=== PATIENT | female | born 1955 | race Caucasian/White ===

== ENCOUNTER 2017-08-28 09:15 | Outpatient (CLI) | payer BC ==
--- NOTE | 2017-09-06 08:02 | MMO ---
BILATERAL DIGITAL SCREENING MAMMOGRAMS: HISTORY: This 62-year-old female presents for digital screening mammography. COMPARISON: 04/24/12. This patient's mammogram is interpreted with the assistance of computer-aided detection. FINDINGS: Dense fibroglandular changes are noted bilaterally which can obscure small masses. There is no direc t or indirect evidence of malignancy. Appearance is stable. IMPRESSION: BI-RADS category 1, negative. Continued routine screening. BIRADS 1: Negative Routine annual screening mammography (for women over age 40) POS: [facility]
== END 2017-08-28 09:16 | disposition home or self-care (01) ==
LOC: MAMMO 09:15
PROVIDERS: ATTEND Family Medicine
DX: Z12.31 Encounter for screening mammogram for malignant neoplasm of breast (principal)
CPT/HCPCS: 77067; G0202

== ENCOUNTER 2019-08-13 08:00 | Outpatient (CLI) | payer OTHER | END 2019-08-13 08:01 | disposition home or self-care (01) | LOC: BICMAMMO 08:00 | PROVIDERS: ATTEND Family Medicine | DX: Z12.31 Encounter for screening mammogram for malignant neoplasm of breast (principal) | CPT/HCPCS: 77063; 77067 ==

== ENCOUNTER 2019-09-21 02:24 | Inpatient (IN) | payer OTHER ==
[2019-09-21] MEDS ORDERED: Ondansetron PF 4 MG/2 ML Vial ONE (02:59)
[2019-09-21 03:01] LABS: #Basophils 0.1 thou/uL (0.0-0.2); #Eosinphils 0.2 thou/uL (0.0-0.7); #Lymphocytes 4.1 thou/uL (1.20-3.40); #Monocytes 1.2 thou/uL (0.11-0.59); %Eosinophils 1.3 % (0.0-10.0); %Lymphocytes 32.5 % (21.0-51.0); %Monocytes 9.6 % (0.0-10.0); %Neutrophils 55.6 % (42.0-75.0); Hemoglobin 14.3 g/dL (12.0-16.0); Mean Corpuscular HGB CONC 34.6 g/dL (32.0-36.0); Mean Corpuscular Volume 95.4 fL (78.0-98.0); Platelet Count 243 thou/uL (130-400); RBC Distribution Width 11.4 % (11.5-14.5); Red Blood Cell (RBC) Count 4.35 mill/uL (4.20-5.40); White Blood Cell (WBC) Count 12.6 thou/uL (4.8-10.8)
[2019-09-21] MEDS ORDERED: cefTRIAXone\\ROCEPHIN 2 GM VIAL ONE (03:22)
[2019-09-21] MEDS ORDERED: Sodium Chloride 0.9% 100 ML ONE (03:22)
[2019-09-21] MEDS ORDERED: Azithromycin 500 MG VIAL ONE (03:22)
[2019-09-21 03:23] LABS: ALT (SGPT) 15 U/L (8-55); AST (SGOT) 17 U/L (5-34); Albumin 3.7 g/dL (3.4-4.8); Alkaline Phosphatase 70 U/L (40-110); Anion Gap 14 mmol/L (10-20); BUN (Urea Nitrogen) 9 mg/dL (9.8-20.1); Bilirubin, Total 0.5 mg/dL (0.2-1.2); Calc. Creatinine Clearance 0 mL/min (70-130); Calcium 8.5 mg/dL (7.8-10.44); Carbon Dioxide 21 mmol/L (23-31); Chloride 104 mmol/L (98-107); Estimated GFR-MDRD 73; Globulin 2.6 g/dL (2.4-3.5); Glucose 137 mg/dL (80-115); Potassium 3.7 mmol/L (3.5-5.1); Protein, Total 6.3 g/dL (6.0-8.3); Sodium 135 mmol/L (136-145)
[2019-09-21] MEDS ORDERED: Senokot S 8.6-50 MG TAB PO PRN (06:29)
[2019-09-21] MEDS ORDERED: HYDROcodone/Acetaminophen 5/325 mg Tablet PO PRN (06:29)
[2019-09-21] MEDS ORDERED: Sodium Chloride 0.9% 1,000 ML IV SCH ×3 (06:30→16:00)
[2019-09-21] MEDS ORDERED: Loperamide HCl 2 MG CAP PO PRN (06:32)
[2019-09-21] MEDS ORDERED: Sodium Chloride 0.65% Nasal 44 ML BOT EA NARE PRN (07:37)
[2019-09-21] MEDS ORDERED: Ondansetron ODT 4 MG TAB PO PRN (07:37)
[2019-09-21] MEDS ORDERED: Cepastat Lozenges 1 LOZ PO PRN (07:37)
[2019-09-21] MEDS ORDERED: Artificial Tears 18 DROP/0.9 ML EA EYE PRN (07:37)
[2019-09-21] MEDS ORDERED: hydrALAZINE 20 MG/ML VIAL SLOW IVP PRN (07:37)
[2019-09-21] MEDS ORDERED: Diabetic Tussin 200 MG/10 ML UDCUP PO PRN (07:37)
[2019-09-21] MEDS ORDERED: Calcium Carbonate 500 MG ChewTAB PO PRN (07:37)
[2019-09-21] MEDS ORDERED: Zolpidem Tartrate 5 MG TAB PO PRN (07:37)
[2019-09-21] MEDS ORDERED: Loratadine 10 MG TAB PO PRN (07:37)
--- NOTE | 2019-09-21 07:41 | RAD ---
EXAM: XR Chest 1 View Portable PROVIDED CLINICAL HISTORY: Chest pain COMPARISON: None FINDINGS: Cardiac and mediastinal silhouette is within normal limits. There is bibasilar airspace disease with consolidation involving the right lower lung zone. There is no pleural fluid or pneumothorax apparent. IMPRESSION: Right greater than left basilar airspace disease compatible with pneumonia in the appropriate clinica l context. Follow-up after treatment is recommended to document resolution.
[2019-09-21] MEDS: Enoxaparin Sodium 40 MG/0.4 ML SYRINGE SC SCH (08:48)
[2019-09-21] MEDS: Famotidine 20 MG TAB PO SCH ×2 (08:48→19:35)
[2019-09-21] MEDS: Aspirin Chewable 81 MG TAB PO SCH (08:48)
[2019-09-21] MEDS: Rosuvastatin 10 MG TAB PO SCH (08:48)
[2019-09-21] MEDS: Ondansetron PF 4 MG/2 ML Vial IVP PRN (10:19)
[2019-09-21 10:27] LABS: Actual Bicarbonate (HCO3a) 18.2 mEq/L (22-28); Base Excess (BEa) -8.6 mEq/L (-2.0 to +3.0); CO2 Tension 42.2 mmHg (35.0-45.0); Calcium, Ionized 1.13 mmol/L (1.12-1.30); Carboxyhemoglobin (COHb) 0.9 gm% (0.0-3.0); Hemoglobin (Hb) 14.5 g/dL (12.0-16.0); O2 Tension (PaO2) 67.7 mmHg (> 80.0); Potassium - ABG Lab 3.91 mmol/L (3.70-5.30)
[2019-09-21 10:28] LABS: Puncture Site LRA; pH, Arterial 7.25 (7.35-7.45)
--- NOTE | 2019-09-21 10:29 | PRG ---
DATE OF SERVICE: 09/21/2019 The patient is seen in the morning. At that time, the patient was able to maintain her saturation with nasal cannula and her blood pressure was stable and she was still tachycardic, subsequently the patient was re-evaluated and the patient appeared worse. She was hypoxic even with 5 L of oxygen and the patient was more tachypneic and tachycardic. ABG was obtained, which was consistent with severe acidosis and we kept her on nonbreather and that is why we decided to transfer her to IMCU. The patient will need BiPAP and will put Pulmonary consultation. She may need intubation if no improves.We have also decided to add vancomycin to cover Staph organism. We will closely monitor in IMCU. We will also increase IV fluid to 125 mL/h. will check lactic acid and cortisol level. Job ID: [id number] MTDD
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
[2019-09-21] MEDS ORDERED: Propofol 1,000 MG/100 ML VIAL IV ONE (10:41)
[2019-09-21] MEDS: Sodium Chloride 0.9% 1,000 ML IV SCH ×2 (10:41→16:27)
[2019-09-21] MEDS ORDERED: Midazolam HCl 2 mg/2 ml Vial ONE (10:41)
[2019-09-21] MEDS: Propofol 1,000 MG/100 ML VIAL IV PRN ×2 (11:20→19:21)
[2019-09-21 11:44] LABS: Actual Bicarbonate (HCO3a) 16.6 mEq/L (22-28); CO2 Tension 43.3 mmHg (35.0-45.0); Calcium, Ionized 1.09 mmol/L (1.12-1.30); Carboxyhemoglobin (COHb) 0.4 gm% (0.0-3.0); Hemoglobin (Hb) 13.5 g/dL (12.0-16.0); O2 Tension (PaO2) 68.2 mmHg (> 80.0); Potassium - ABG Lab 3.92 mmol/L (3.70-5.30)
[2019-09-21 11:49] LABS: Puncture Site RRAD
[2019-09-21 11:50] LABS: ALV-art Gradient 590.675 (0-20)
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
[2019-09-21] MEDS ORDERED: Propofol BOLUS 1,000 MG/100 ML VIAL IV PRN (12:26)
[2019-09-21] MEDS ORDERED: Fentanyl BOLUS 250 ML IVPB PRN (12:26)
[2019-09-21] MEDS ORDERED: DISCONTINUE PREVIOUS NARCOTIC PAIN MEDICATIONS AND BENZODIAZEPINES FS SCH (12:26)
[2019-09-21] MEDS ORDERED: Morphine 2 MG/ML SYRINGE SLOW IVP PRN (12:26)
[2019-09-21] MEDS ORDERED: Midazolam HCl 2 mg/2 ml Vial SLOW IVP SCH (12:30)
--- NOTE | 2019-09-21 12:37 | CON ---
DATE OF CONSULTATION: HISTORY OF PRESENT ILLNESS: Ms. Morley is a 64-year-old female. She was admitted with a diagnosis of pneumonia early this morning to the floor. The respiratory therapist found me and told me that she was in severe respiratory distress. The hospitalist had planned to transfer her to the intermediate care unit. The respiratory therapist tracked me down and informed me that he felt she might need to be intubated and read me her blood gas. She was transferred to critical care of my direction at that time. PAST MEDICAL HISTORY: Remarkable for lipid disorder, carpal tunnel syndrome, ankle surgery, and appendectomy. SOCIAL HISTORY: She drinks beer every day. She is a nonsmoker. Does not use drugs. ALLERGIES: SHE REPORTS NO DRUG ALLERGIES. FAMILY HISTORY: Negative for lung disease in early age. REVIEW OF SYSTEMS: Otherwise negative. PHYSICAL EXAMINATION: VITAL SIGNS: She is afebrile. Heart rate is 120, respiratory rate was in the 30s, and oximetry was 86% on non-rebreather. GENERAL: She was saying "help me, I'm tired." When we discussed intubation, she quickly nodded yes, she wanted that. HEENT: Her pupils are equal. Sclerae are anicteric. Extraocular movements appeared full. Throat was clear. NECK: Without lymphadenopathy. LUNGS: Remarkable for rhonchi bilaterally. HEART: Regular rhythm. S1 and S2 are normal. ABDOMEN: Soft and nontender. EXTREMITIES: Without edema. IMAGING STUDIES: Chest radiograph was reviewed, it shows a right greater than left base alveolar infiltrate. IMPRESSION: 1. Pneumonia with possible early acute respiratory distress syndrome. 2. Respiratory failure secondary to respiratory muscle fatigue. Recommended intubation. CRITICAL CARE TIME: Independent of procedure was 30 minutes. Job ID: [id number] MTDD
[2019-09-21] MEDS: Vancomycin HCl 1 GM in Premix Bag 1 BAG IVPB SCH ×2 (12:59→22:12)
[2019-09-21] MEDS: methylPREDNISolone Sod Succ 40 MG VIAL IVP SCH ×2 (13:00→21:01)
[2019-09-21] MEDS: fentaNYL Citrate/PF 2,000 MCG in Sodium Chloride 0.9% 60 ML IV SCH (13:07)
[2019-09-21 14:37] LABS: Actual Bicarbonate (HCO3a) 13.8 mEq/L (22-28); Base Excess (BEa) -10.2 mEq/L (-2.0 to +3.0); CO2 Tension 26.2 mmHg (35.0-45.0); Calcium, Ionized 1.09 mmol/L (1.12-1.30); Carboxyhemoglobin (COHb) 0.7 gm% (0.0-3.0); Hemoglobin (Hb) 13.7 g/dL (12.0-16.0); O2 Tension (PaO2) 62.2 mmHg (> 80.0); Potassium - ABG Lab 4.74 mmol/L (3.70-5.30); pH, Arterial 7.34 (7.35-7.45)
[2019-09-21 14:48] LABS: Puncture Site RR
[2019-09-21 18:13] LABS: Legionella Urinary Ag Negative (Negative); Strep pneumo Urine Ag NEGATIVE (NEGATIVE)
[2019-09-21] MEDS: guaiFENesin ER 600 MG TAB PO SCH (19:35)
[2019-09-21] MEDS: Acetaminophen 325 MG TAB PO PRN (22:43)
[2019-09-22] MEDS: cefTRIAXone\\ROCEPHIN 2 GM in Sodium Chloride 0.9% 100 ML IVPB SCH (03:02)
[2019-09-22] MEDS: Sodium Chloride 0.9% 1,000 ML IV SCH (04:57)
[2019-09-22] MEDS: methylPREDNISolone Sod Succ 40 MG VIAL IVP SCH ×3 (05:05→22:32)
[2019-09-22 06:09] LABS: #Lymphocytes 1.4 thou/uL (1.20-3.40); #Monocytes 0.8 thou/uL (0.11-0.59); #Neutrophils 8.5 thou/uL (1.40-6.50); %Eosinophils 0.1 % (0.0-10.0); %Lymphocytes 12.9 % (21.0-51.0); %Monocytes 7.4 % (0.0-10.0); %Neutrophils 79.6 % (42.0-75.0); Hemoglobin 11.8 g/dL (12.0-16.0); Mean Corpuscular HGB CONC 34.7 g/dL (32.0-36.0); Mean Corpuscular Hemoglobin 33.2 pg (27.0-31.0); Mean Corpuscular Volume 95.5 fL (78.0-98.0); Mean Platelet Volume 8.1 fL (7.4-10.4); Platelet Count 172 thou/uL (130-400); RBC Distribution Width 11.5 % (11.5-14.5); Red Blood Cell (RBC) Count 3.56 mill/uL (4.20-5.40); White Blood Cell (WBC) Count 10.6 thou/uL (4.8-10.8)
[2019-09-22 06:45] LABS: ALT (SGPT) 11 U/L (8-55); AST (SGOT) 14 U/L (5-34); Albumin 2.7 g/dL (3.4-4.8); Alkaline Phosphatase 46 U/L (40-110); Anion Gap 14 mmol/L (10-20); BUN (Urea Nitrogen) 14 mg/dL (9.8-20.1); Bilirubin, Total 0.3 mg/dL (0.2-1.2); Calc. Creatinine Clearance 65 mL/min (70-130); Calcium 7.5 mg/dL (7.8-10.44); Carbon Dioxide 14 mmol/L (23-31); Chloride 112 mmol/L (98-107); Estimated GFR-MDRD 57; Globulin 2.4 g/dL (2.4-3.5); Glucose 149 mg/dL (80-115); Potassium 3.7 mmol/L (3.5-5.1); Protein, Total 5.1 g/dL (6.0-8.3); Sodium 136 mmol/L (136-145)
--- NOTE | 2019-09-22 07:35 | RAD ---
EXAM: XR Chest 1 View Portable PROVIDED CLINICAL HISTORY: Respiratory insufficiency COMPARISON: 09/21/2019 FINDINGS: Interval placement of endotracheal tube, tip of which projects approximately 2 cm from the yung. In terval placement of enteric catheter, the tip of which is not visualized but is below the diaphragm. Interval worsening of bilateral airspace disease, right greater than left. No pleural flui d or pneumothorax apparent. IMPRESSION: Worsening bilateral airspace disease. Interval intubation and placement of enteric catheter.
[2019-09-22 08:00] LABS: Actual Bicarbonate (HCO3a) 13.5 mEq/L (22-28); Base Excess (BEa) -7.7 mEq/L (-2.0 to +3.0); Calcium, Ionized 1.09 mmol/L (1.12-1.30); Carboxyhemoglobin (COHb) 0.3 gm% (0.0-3.0); Hemoglobin (Hb) 12.7 g/dL (12.0-16.0); O2 Tension (PaO2) 105.5 mmHg (> 80.0); Potassium - ABG Lab 3.86 mmol/L (3.70-5.30); pH, Arterial 7.48 (7.35-7.45)
[2019-09-22 08:01] LABS: CO2 Tension 18.7 mmHg (35.0-45.0); Puncture Site RR
[2019-09-22 08:02] LABS: ALV-art Gradient 584.125 (0-20)
[2019-09-22] MEDS: Aspirin Chewable 81 MG TAB PO SCH (08:24)
[2019-09-22] MEDS: Famotidine 20 MG TAB PO SCH (08:24)
[2019-09-22] MEDS: guaiFENesin ER 600 MG TAB PO SCH (08:24)
[2019-09-22] MEDS: Enoxaparin Sodium 40 MG/0.4 ML SYRINGE SC SCH (08:24)
[2019-09-22] MEDS: Rosuvastatin 10 MG TAB PO SCH (08:24)
[2019-09-22] MEDS: fentaNYL Citrate/PF 2,000 MCG in Sodium Chloride 0.9% 60 ML IV SCH (09:09)
--- NOTE | 2019-09-22 10:57 | PDOC.HOSPP ---
- Subjective Encounter Date: 09/22/19 Encounter Time: 10:30 Subjective: pt is awake on vent, family bedside, on ventilator, - Objective Vital Signs & Weight: Vital Signs (12 hours) Temp Pulse Resp BP 09/22/19 10:31 80 93/64 09/22/19 07:45 82 93/65 09/22/19 06:00 28 H 09/22/19 04:00 28 H 09/22/19 03:16 87 09/22/19 03:00 98.7 F 09/22/19 02:00 28 H 09/22/19 00:54 87 09/22/19 00:00 28 H 09/21/19 23:00 99.8 F H Weight Weight 153 lb 3.54 oz Most Recent Monitor Data Heart Rate from ECG 80 NIBP 93/64 NIBP BP-Mean 73 Respiration from ECG 20 SpO2 97 I&O: 09/21/19 09/22/19 09/23/19 06:59 06:59 06:59 Intake Total 3255.2 Output Total 1271 Balance 1984.2 Result Diagrams: 09/22/19 05:49 09/22/19 05:49 Radiology Reviewed by me: Yes EKG Reviewed by me: Yes Hospitalist ROS - Review of Systems ROS unobtainable: due to endotracheal tube - Medication Medications: Active Medications Generic Name Dose Route Start Last Admin Trade Name Freq PRN Reason Stop Dose Admin Acetaminophen 650 mg 09/21/19 06:29 09/21/19 22:43 Tylenol PO 650 mg Q4H PRN Administration Headache/Fever/Mild Pain (1-3) Hydrocodone Bitart/Acetaminophen 1 tab 09/21/19 06:29 09/21/19 07:00 [place] 5/325 PO 1 tab Q4H PRN Administration Moderate Pain (4-6) Aspirin 81 mg 09/21/19 09:00 09/22/19 08:24 Aspirin Chewable PO 81 mg DAILY KRISHNA Administration Enoxaparin Sodium 40 mg 09/21/19 09:00 09/22/19 08:24 Lovenox SC 40 mg 0900 KRISHNA Administration Famotidine 20 mg 09/21/19 09:00 09/22/19 08:24 Pepcid PO 20 mg BID KRISHNA Administration Guaifenesin 600 mg 09/21/19 21:00 09/22/19 08:24 Mucinex PO 600 mg Q12HR KRISHNA Administration Ceftriaxone Sodium 2 gm/ 100 mls @ 200 mls/hr 09/22/19 04:00 09/22/19 03:02 Sodium Chloride IVPB 100 mls 0400 KRISHNA Administration Levofloxacin 750 mg/ Device 150 mls @ 100 mls/hr 09/21/19 08:00 09/22/19 08: 24 IVPB 150 mls 0800 KRISHNA Administration Vancomycin HCl 1 gm/ Device 200 mls @ 200 mls/hr 09/21/19 11:00 09/21/19 22: 12 IVPB 200 mls 1100,2300 KRISHNA Administration Fentanyl Citrate 2,000 mcg/ 100 mls @ 0 mls/hr 09/21/19 12:26 09/22/19 09:09 Sodium Chloride IV 10/21/19 12:26 100 mls INF KRISHNA Administration Protocol Per Protocol Sodium Chloride 1,000 mls @ 75 mls/hr 09/21/19 12:30 09/22/19 04:57 Normal Saline 0.9% IV 1,000 mls .[id number] KRISHNA Administration Methylprednisolone Sodium Succinate 40 mg 09/21/19 14:00 09/22/19 05:05 Solu-Medrol IVP 40 mg Q8HR KRISHNA Administration Morphine Sulfate 2 mg 09/21/19 12:26 09/21/19 12:59 Morphine SLOW IVP 10/21/19 12:26 2 mg Q1H PRN Administration BREAKTHROUGH PAIN/Agitation Ondansetron HCl 4 mg 09/21/19 06:29 09/21/19 10:19 Zofran IVP 4 mg Q6H PRN Administration Nausea/Vomiting Propofol 1,000 mg 09/21/19 12:26 09/21/19 19:21 Diprivan IV 10/21/19 12:26 1,000 mg INF PRN Administration TO ACHIEVE GOAL RASS Protocol Rosuvastatin Calcium 10 mg 09/21/19 09:00 09/22/19 08:24 Crestor PO 10 mg DAILY KRISHNA Administration Sodium Chloride 10 ml 09/21/19 21:00 09/22/19 08:24 Flush - Normal Saline IVF 10 ml Q12HR KRISHNA Administration - Exam General Appearance: NAD Eye: PERRL, anicteric sclera ENT: normocephalic atraumatic, no oropharyngeal lesions Neck: supple, symmetric, no JVD Heart: RRR, no murmur, no gallops Respiratory: no wheezes, no ronchi, rales Gastrointestinal: soft, non-distended, normal bowel sounds Extremities: no cyanosis, no clubbing, no edema Skin: normal turgor Musculoskeletal: normal tone Hosp A/P (1) Acute respiratory failure with hypoxemia Code(s): J96.01 - ACUTE RESPIRATORY FAILURE WITH HYPOXIA Status: Acute (2) Sepsis with acute hypoxic respiratory failure Code(s): A41.9 - SEPSIS, UNSPECIFIED ORGANISM; R65.20 - SEVERE SEPSIS WITHOUT SEPTIC SHOCK; J96.01 - ACUTE RESPIRATORY FAILURE WITH HYPOXIA Status: Acute Qualifiers: Sepsis type: sepsis due to unspecified organism Severe sepsis shock status : without septic shock Qualified Code(s): A41.9 - Sepsis, unspecified organism ; R65.20 - Severe sepsis without septic shock; J96.01 - Acute respiratory failure with hypoxia (3) Pneumonia Code(s): J18.9 - PNEUMONIA, UNSPECIFIED ORGANISM Status: Acute Qualifiers: Pneumonia type: due to unspecified organism Laterality: bilateral Lung location: lower lobe of lung Qualified Code(s): J18.9 - Pneumonia, unspecified organism (4) Metabolic acidosis Code(s): E87.2 - ACIDOSIS Status: Acute (5) Adult respiratory distress syndrome Code(s): J80 - ACUTE RESPIRATORY DISTRESS SYNDROME Status: Suspected (6) Dyslipidemia Code(s): E78.5 - HYPERLIPIDEMIA, UNSPECIFIED Status: Chronic - Plan old records reviewed/req, plan discussed w/ family, continue antibiotics 09/22/19- pt is awake on vent but chest xray has no improvement, still has acidosis, will change IVF with bicarbonate, continue ventilatory support, medication reviewed and continue to provide symptomatic treatment, so far culture negative, condition is still critical
[2019-09-22] MEDS ORDERED: Dextrose 5 %-0.45 % NaCl 1,000 ML IV SCH (11:00)
--- NOTE | 2019-09-22 11:56 | PRG ---
DATE OF SERVICE: 09/22/2019 SUBJECTIVE: Sindi Morley awakens easily. She moves all her extremities. She nods that she is comfortable. OBJECTIVE: VITAL SIGNS: Blood pressure 93/64, heart rate 80, respiratory rate per mechanical ventilation which was initially set at 28, we turned it down to a rate of 16. We have taken a bilevel and turned her PEEP down to 10. She is getting a tidal volume of 500 now. LUNGS: Remarkable for coarse equal breath sounds. HEART: Regular rhythm. ABDOMEN: Soft. EXTREMITIES: Warm without edema. NEURO: Grossly nonfocal. LABORATORY DATA: White count 10.6, hemoglobin 11.8, platelets 172,000. Sodium 136, potassium 3.7, chloride 112, bicarb 14, BUN 14, creatinine 0.99. IMPRESSION: 1. Pneumonia, bilateral. 2. Respiratory failure secondary to pneumonia. Statistically, this is most likely pneumococcus. PLAN: We will start some enteral nutrition today. We will continue DVT prophylaxis. We will simplify some of the meds on her med sheet. She will be switched to half-normal saline. Job ID: [id number]
[2019-09-22] MEDS: Vancomycin HCl 1 GM in Premix Bag 1 BAG IVPB SCH ×2 (12:34→22:32)
[2019-09-22] MEDS: Sodium Chloride 0.45% 1,000 ML IV SCH ×2 (12:35→23:46)
[2019-09-22] MEDS: Diabetic Tussin 200 MG/10 ML UDCUP PO SCH ×4 (12:35→23:45)
[2019-09-22] MEDS: Propofol 1,000 MG/100 ML VIAL IV PRN (17:56)
[2019-09-22] MEDS: Famotidine/PF 20 mg/2ml Vial SLOW IVP SCH (20:14)
[2019-09-22 22:23] LABS: Vancomycin, Trough 18.6 ug/mL
[2019-09-23] MEDS: cefTRIAXone\\ROCEPHIN 2 GM in Sodium Chloride 0.9% 100 ML IVPB SCH (03:58)
[2019-09-23] MEDS: Diabetic Tussin 200 MG/10 ML UDCUP PO SCH ×5 (03:58→20:12)
[2019-09-23 04:43] LABS: #Lymphocytes 1.3 thou/uL (1.20-3.40); #Monocytes 1.1 thou/uL (0.11-0.59); #Neutrophils 9.9 thou/uL (1.40-6.50); %Eosinophils 0.2 % (0.0-10.0); %Lymphocytes 10.2 % (21.0-51.0); %Monocytes 8.6 % (0.0-10.0); Hemoglobin 10.7 g/dL (12.0-16.0); Mean Corpuscular HGB CONC 34.2 g/dL (32.0-36.0); Mean Corpuscular Hemoglobin 33.3 pg (27.0-31.0); Mean Corpuscular Volume 97.4 fL (78.0-98.0); Mean Platelet Volume 8.5 fL (7.4-10.4); Platelet Count 184 thou/uL (130-400); RBC Distribution Width 11.7 % (11.5-14.5); Red Blood Cell (RBC) Count 3.22 mill/uL (4.20-5.40); White Blood Cell (WBC) Count 12.2 thou/uL (4.8-10.8)
[2019-09-23] MEDS: fentaNYL Citrate/PF 2,000 MCG in Sodium Chloride 0.9% 60 ML IV SCH (05:17)
[2019-09-23 05:18] LABS: Anion Gap 10 mmol/L (10-20); BUN (Urea Nitrogen) 20 mg/dL (9.8-20.1); Calc. Creatinine Clearance 73 mL/min (70-130); Calcium 7.3 mg/dL (7.8-10.44); Carbon Dioxide 16 mmol/L (23-31); Chloride 105 mmol/L (98-107); Estimated GFR-MDRD 65; Glucose 162 mg/dL (80-115); Potassium 4.3 mmol/L (3.5-5.1); Sodium 127 mmol/L (136-145)
[2019-09-23] MEDS: methylPREDNISolone Sod Succ 40 MG VIAL IVP SCH ×4 (05:41→23:03)
[2019-09-23 07:36] LABS: Actual Bicarbonate (HCO3a) 16.2 mEq/L (22-28); Base Excess (BEa) -8.8 mEq/L (-2.0 to +3.0); CO2 Tension 32.1 mmHg (35.0-45.0); Calcium, Ionized 1.17 mmol/L (1.12-1.30); Carboxyhemoglobin (COHb) 0.1 gm% (0.0-3.0); Hemoglobin (Hb) 12.2 g/dL (12.0-16.0); O2 Tension (PaO2) 63.6 mmHg (> 80.0); pH, Arterial 7.32 (7.35-7.45)
[2019-09-23 07:40] LABS: ALV-art Gradient 466.675 (0-20); Puncture Site RB
[2019-09-23] MEDS ORDERED: Albumin 25% 25 GM/100 ML BOT IVPB SCH (07:54)
[2019-09-23] MEDS ORDERED: Furosemide 40 MG/4 ML VIAL SLOW IVP SCH (08:00)
[2019-09-23] MEDS: Metoclopramide HCl 10 MG/2 ML VIAL IVP PRN ×2 (08:46→22:11)
[2019-09-23] MEDS: Famotidine/PF 20 mg/2ml Vial SLOW IVP SCH ×2 (08:46→20:12)
[2019-09-23] MEDS: Enoxaparin Sodium 40 MG/0.4 ML SYRINGE SC SCH (08:46)
[2019-09-23] MEDS: Rosuvastatin 10 MG TAB PO SCH (08:46)
[2019-09-23] MEDS: Aspirin Chewable 81 MG TAB PO SCH (08:46)
--- NOTE | 2019-09-23 09:17 | RAD ---
CHEST 1 VIEW: Date: 09/23/19 HISTORY: Pneumonia. Dyspnea. COMPARISON: 09/22/19. FINDINGS: Cardiac silhouette is magnified, upper limits of normal, and partially obscured by dense bilateral in filtrates. Upper lobe components of the dense predominantly central bilateral infiltrates have increa sed slightly. Pulmonary vasculature also engorged. Mediastinum is midline. Tip of the endotracheal catheter, approaching the yung, is not significantl y changed in position. Nasogastric tube descends to the abdomen, exiting the inferior aspect of the i mage. No evidence of pneumothorax. IMPRESSION: 1. Worsening of dense bilateral predominantly central infiltrates. Appearance of pulmonary edema, po ssibly with superimposed inflammation. 2. Endotracheal catheter should probably be withdrawn approximately 3 cm for better positioning. POS: [facility]
[2019-09-23] MEDS: Meropenem 2 GM in Sodium Chloride 0.9% 100 ML IVPB SCH ×2 (10:35→16:18)
--- NOTE | 2019-09-23 12:04 | PDOC.HOSPP ---
- Subjective Encounter Date: 09/23/19 Encounter Time: 10:45 Subjective: Patient seen and examined. No overnight events - Objective Vital Signs & Weight: Vital Signs (12 hours) Temp Pulse Resp BP Pulse Ox 09/23/19 10:56 85 16 106/69 09/23/19 10:32 87 90/64 09/23/19 10:00 16 09/23/19 08:00 98.4 F 16 96 09/23/19 07:27 84 95/72 09/23/19 06:00 16 09/23/19 04:00 97.6 F 16 09/23/19 02:00 86 16 Weight Weight 148 lb 5.938 oz Most Recent Monitor Data Heart Rate from ECG 84 NIBP 90/61 NIBP BP-Mean 70 Respiration from ECG 16 SpO2 93 I&O: 09/22/19 09/23/19 09/24/19 06:59 06:59 06:59 Intake Total 3255.2 3519.9 100 Output Total 1271 1100 710 Balance 1984.2 2419.9 -610 Result Diagrams: 09/23/19 04:05 09/23/19 04:09 Radiology Reviewed by me: Yes EKG Reviewed by me: Yes Hospitalist ROS - Review of Systems ROS unobtainable: due to endotracheal tube - Medication Medications: Active Medications Generic Name Dose Route Start Last Admin Trade Name Freq PRN Reason Stop Dose Admin Acetaminophen 650 mg 09/21/19 06:29 09/21/19 22:43 Tylenol PO 650 mg Q4H PRN Administration Headache/Fever/Mild Pain (1-3) Hydrocodone Bitart/Acetaminophen 1 tab 09/21/19 06:29 09/21/19 07:00 [place] 5/325 PO 1 tab Q4H PRN Administration Moderate Pain (4-6) Aspirin 81 mg 09/21/19 09:00 09/23/19 08:46 Aspirin Chewable PO 81 mg DAILY KRISHNA Administration Enoxaparin Sodium 40 mg 09/21/19 09:00 09/23/19 08:46 Lovenox SC 40 mg 0900 KRISHNA Administration Famotidine 20 mg 09/22/19 21:00 09/23/19 08:46 Pepcid SLOW IVP 20 mg BID KRISHNA Administration Guaifenesin 200 mg 09/22/19 13:00 09/23/19 08:48 Robitussin Sf PO 200 mg Q4HR KRISHNA Administration Levofloxacin 750 mg/ Device 150 mls @ 100 mls/hr 09/21/19 08:00 09/23/19 08: 46 IVPB 150 mls 0800 KRISHNA Administration Fentanyl Citrate 2,000 mcg/ 100 mls @ 0 mls/hr 09/21/19 12:26 09/23/19 05:17 Sodium Chloride IV 10/21/19 12:26 100 mls INF KRISHNA Administration Protocol Per Protocol Meropenem 2 gm/ Sodium 100 mls @ 100 mls/hr 09/23/19 09:00 09/23/19 10:35 Chloride IVPB 100 mls 0100,0900,1700 KRISHNA Administration Metoclopramide HCl 10 mg 09/23/19 07:48 09/23/19 08:46 Reglan IVP 10 mg Q6H PRN Administration Nausea/Vomiting Morphine Sulfate 2 mg 09/21/19 12:26 09/21/19 12:59 Morphine SLOW IVP 10/21/19 12:26 2 mg Q1H PRN Administration BREAKTHROUGH PAIN/Agitation Ondansetron HCl 4 mg 09/21/19 06:29 09/21/19 10:19 Zofran IVP 4 mg Q6H PRN Administration Nausea/Vomiting Propofol 1,000 mg 09/21/19 12:26 09/22/19 17:56 Diprivan IV 10/21/19 12:26 1,000 mg INF PRN Administration TO ACHIEVE GOAL RASS Protocol Rosuvastatin Calcium 10 mg 09/21/19 09:00 09/23/19 08:46 Crestor PO 10 mg DAILY KRISHNA Administration Sodium Chloride 10 ml 09/21/19 21:00 09/23/19 08:52 Flush - Normal Saline IVF 10 ml Q12HR KRISHNA Administration - Exam General Appearance: NAD Eye: PERRL, anicteric sclera ENT: normocephalic atraumatic, no oropharyngeal lesions Neck: supple, symmetric, no JVD Heart: RRR, no murmur, no gallops Respiratory: no wheezes Respiratory - other findings: basal rales+ Gastrointestinal: soft, non-distended, normal bowel sounds Extremities: no cyanosis, no clubbing, no edema Skin: normal turgor, no lesions Hosp A/P (1) Acute respiratory failure with hypoxemia Code(s): J96.01 - ACUTE RESPIRATORY FAILURE WITH HYPOXIA Status: Acute (2) Sepsis with acute hypoxic respiratory failure Code(s): A41.9 - SEPSIS, UNSPECIFIED ORGANISM; R65.20 - SEVERE SEPSIS WITHOUT SEPTIC SHOCK; J96.01 - ACUTE RESPIRATORY FAILURE WITH HYPOXIA Status: Acute Qualifiers: Sepsis type: sepsis due to unspecified organism Severe sepsis shock status : without septic shock Qualified Code(s): A41.9 - Sepsis, unspecified organism ; R65.20 - Severe sepsis without septic shock; J96.01 - Acute respiratory failure with hypoxia (3) Pneumonia Code(s): J18.9 - PNEUMONIA, UNSPECIFIED ORGANISM Status: Acute Qualifiers: Pneumonia type: due to unspecified organism Laterality: bilateral Lung location: lower lobe of lung Qualified Code(s): J18.9 - Pneumonia, unspecified organism (4) Metabolic acidosis Code(s): E87.2 - ACIDOSIS Status: Acute (5) Adult respiratory distress syndrome Code(s): J80 - ACUTE RESPIRATORY DISTRESS SYNDROME Status: Suspected (6) Dyslipidemia Code(s): E78.5 - HYPERLIPIDEMIA, UNSPECIFIED Status: Chronic - Plan old records reviewed/req, plan discussed w/ family, continue antibiotics, respiratory therapy 09/22/19- pt is awake on vent but chest xray has no improvement, still has acidosis, will change IVF with bicarbonate, continue ventilatory support, medication reviewed and continue to provide symptomatic treatment, so far culture negative, condition is still critical 09/23/19- continue vent support, continue iv antibiotic, medication reviewed and continue to provide symptomatic treatment, no new recommendation
--- NOTE | 2019-09-23 12:20 | PRG ---
DATE OF SERVICE: 09/23/2019 SUBJECTIVE: Sindi Morley remains sedated for ventilation. She will awake and move all her extremities. OBJECTIVE: VITAL SIGNS: Heart rates in the 80s, blood pressure is 94/61, respiratory rate 16. LUNGS: Remarkable for coarse equal breath sounds. HEART: Regular rhythm. S1 and S2 are normal. ABDOMEN: Soft and nontender. EXTREMITIES: Without clubbing, cyanosis, or edema. LABORATORY DATA: White count 12.2, hemoglobin 10.7, platelets 184. Sodium 127, potassium 4.3, chloride 105, bicarb 16, anion gap 6, BUN 20, creatinine 0.66, glucose 162, albumin 2.7. Chest x-ray reviewed by me now shows diffuse alveolar infiltrates consistent with ARDS. IMPRESSION: 1. Pneumonia with acute respiratory distress syndrome. 2. Respiratory failure. 3. History of heavy alcohol use prior to admission. 4. History of lipid disorder. PLAN: We will continue supportive care. We will try albumin and Lasix to see if we can decrease her total body water and lead to decrease in her x-ray and gas exchange. She is at least stable, but she is far from a point where she can be extubated. ADDENDUM: I have changed her antimicrobial therapy today empirically, given her progression of radiographs. Job ID: [id number]
[2019-09-23] MEDS: Propofol 1,000 MG/100 ML VIAL IV PRN (13:45)
[2019-09-23] MEDS: Norepinephrine 8 MG/250 ML IVPB SCH (16:08)
[2019-09-23] MEDS: Lorazepam 2 MG/ML VIAL SLOW IVP PRN (16:17)
[2019-09-23] MEDS: Vecuronium 10 MG VIAL IV PRN ×2 (16:19→22:10)
[2019-09-24] MEDS: Meropenem 2 GM in Sodium Chloride 0.9% 100 ML IVPB SCH ×3 (01:02→17:18)
[2019-09-24] MEDS: Diabetic Tussin 200 MG/10 ML UDCUP PO SCH ×6 (01:03→20:06)
[2019-09-24] MEDS: fentaNYL Citrate/PF 2,000 MCG in Sodium Chloride 0.9% 60 ML IV SCH ×2 (01:41→21:00)
[2019-09-24] MEDS: Vecuronium 10 MG VIAL IV PRN ×6 (01:42→20:29)
[2019-09-24 02:41] LABS: #Lymphocytes 1.9 thou/uL (1.20-3.40); #Monocytes 2.2 thou/uL (0.11-0.59); #Neutrophils 15.6 thou/uL (1.40-6.50); %Basophils 0.1 % (0.0-1.0); %Eosinophils 0.2 % (0.0-10.0); %Lymphocytes 9.8 % (21.0-51.0); %Monocytes 11.2 % (0.0-10.0); %Neutrophils 78.6 % (42.0-75.0); Hemoglobin 11.7 g/dL (12.0-16.0); Mean Corpuscular HGB CONC 35.3 g/dL (32.0-36.0); Mean Corpuscular Hemoglobin 33.8 pg (27.0-31.0); Mean Corpuscular Volume 95.7 fL (78.0-98.0); Mean Platelet Volume 8.3 fL (7.4-10.4); Platelet Count 248 thou/uL (130-400); RBC Distribution Width 11.9 % (11.5-14.5); Red Blood Cell (RBC) Count 3.46 mill/uL (4.20-5.40); White Blood Cell (WBC) Count 19.8 thou/uL (4.8-10.8)
[2019-09-24 03:00] LABS: Anion Gap 14 mmol/L (10-20); BUN (Urea Nitrogen) 24 mg/dL (9.8-20.1); Calc. Creatinine Clearance 55 mL/min (70-130); Calcium 8.3 mg/dL (7.8-10.44); Carbon Dioxide 18 mmol/L (23-31); Chloride 107 mmol/L (98-107); Estimated GFR-MDRD 49; Glucose 202 mg/dL (80-115); Magnesium 2.3 mg/dL (1.6-2.6); Potassium 3.9 mmol/L (3.5-5.1); Sodium 135 mmol/L (136-145)
[2019-09-24] MEDS: Propofol 1,000 MG/100 ML VIAL IV PRN ×3 (04:29→23:28)
[2019-09-24] MEDS: methylPREDNISolone Sod Succ 40 MG VIAL IVP SCH ×4 (05:03→23:46)
[2019-09-24] MEDS: Famotidine/PF 20 mg/2ml Vial SLOW IVP SCH ×2 (07:19→20:06)
[2019-09-24] MEDS: Enoxaparin Sodium 40 MG/0.4 ML SYRINGE SC SCH (07:19)
[2019-09-24] MEDS: Rosuvastatin 10 MG TAB PO SCH (07:20)
[2019-09-24] MEDS: Aspirin Chewable 81 MG TAB PO SCH (07:20)
[2019-09-24] MEDS: Lorazepam 2 MG/ML VIAL SLOW IVP PRN ×4 (07:20→20:06)
[2019-09-24 08:02] LABS: Actual Bicarbonate (HCO3a) 18.4 mEq/L (22-28); Base Excess (BEa) -3.7 mEq/L (-2.0 to +3.0); Calcium, Ionized 1.14 mmol/L (1.12-1.30); Carboxyhemoglobin (COHb) 0.3 gm% (0.0-3.0); Hemoglobin (Hb) 12.3 g/dL (12.0-16.0); Potassium - ABG Lab 3.92 mmol/L (3.70-5.30); pH, Arterial 7.48 (7.35-7.45)
[2019-09-24 08:05] LABS: CO2 Tension 25.4 mmHg (35.0-45.0); O2 Tension (PaO2) 53.2 mmHg (> 80.0)
[2019-09-24 08:06] LABS: Puncture Site A
[2019-09-24] MEDS: Metoclopramide HCl 10 MG/2 ML VIAL IVP PRN (08:15)
--- NOTE | 2019-09-24 10:34 | RAD ---
PORTABLE CHEST: INDICATION: Pneumonia. COMPARISON: 09/23/2019. FINDINGS: Bilateral confluent infiltrates are again seen in somewhat of a perihilar distribution. The density of these infiltrates has decreased from yesterday suggesting possible improvement, although some of t his is due to exposure differences. ET tube continues to have its tip at the yung and probably amalia uld be slightly retracted. NG tube passes through the EG junction with the tip not visualized. IMPRESSION: Bilateral infiltrates are again seen. Infiltrate density is less, suggesting possible interval impro vement, although some of this is due to exposure differences. POS: [facility]
[2019-09-24] MEDS ORDERED: Furosemide 40 MG/4 ML VIAL SLOW IVP SCH (10:45)
[2019-09-24] MEDS: Furosemide 40 MG/4 ML VIAL SLOW IVP SCH (10:46)
--- NOTE | 2019-09-24 10:55 | PRG ---
DATE OF SERVICE: 09/24/2019 SUBJECTIVE: Ms. Morley is sedated for mechanical ventilation. She is on a low-dose Levophed to facilitate propofol. She did have a wide-complex rhythm disturbance last night, so we will check an echo just to make sure she does not have a subclinical cardiomyopathy. Her two sisters are at the bedside and they report that she drinks all day long everyday. OBJECTIVE: LUNGS: Clear anteriorly. HEART: Regular rhythm. ABDOMEN: Soft. LABORATORY DATA: Chest x-ray still shows diffuse infiltrates, although her x-ray slightly improved. Intake and outputs, negative 420. White count 19.8, hemoglobin 11.7, and platelets 248. Sodium 135, potassium 3.9, chloride 107, bicarb 18, BUN 24, creatinine 1.12, and glucose 202. A pH 7.48, CO2 of 25, pO2 of 53. That is on bilevel at 32/12. IMPRESSION: Pneumonia with acute respiratory distress syndrome with an echocardiogram, rule out a cardiac component to her diffuse infiltrates. The family answered all their questions. This will likely be a slow process and I would not anticipate weaning from mechanical ventilation until early next week. We will add Raglan routinely and increase her feeds to 20 mL per hour. We will put her on Lasix every morning hopefully to facilitate avoidance of a significantly positive fluid balance. Job ID: [id number]
--- NOTE | 2019-09-24 11:41 | PDOC.HOSPP ---
- Subjective Encounter Date: 09/24/19 Encounter Time: 10:45 Subjective: pt is on ventilator, no change in overall condition, - Objective Vital Signs & Weight: Vital Signs (12 hours) Temp Pulse Resp Pulse Ox 09/24/19 10:41 73 09/24/19 10:00 16 09/24/19 08:00 16 87 L 09/24/19 07:52 82 09/24/19 07:00 98.5 F 09/24/19 06:00 16 09/24/19 04:00 16 09/24/19 03:00 98.7 F 09/24/19 02:05 76 09/24/19 02:00 16 09/24/19 00:00 16 Weight Admit Weight 148 lb Weight 150 lb 2.157 oz Most Recent Monitor Data Heart Rate from ECG 73 NIBP 109/75 NIBP BP-Mean 86 Respiration from ECG 16 SpO2 94 I&O: 09/23/19 09/24/19 09/25/19 06:59 06:59 06:59 Intake Total 3519.9 1389.3 20 Output Total 1100 1810 345 Balance 2419.9 -420.7 -325 Result Diagrams: 09/24/19 02:30 09/24/19 02:25 Radiology Reviewed by me: Yes EKG Reviewed by me: Yes Hospitalist ROS - Review of Systems ROS unobtainable: due to endotracheal tube - Medication Medications: Active Medications Generic Name Dose Route Start Last Admin Trade Name Freq PRN Reason Stop Dose Admin Acetaminophen 650 mg 09/21/19 06:29 09/21/19 22:43 Tylenol PO 650 mg Q4H PRN Administration Headache/Fever/Mild Pain (1-3) Hydrocodone Bitart/Acetaminophen 1 tab 09/21/19 06:29 09/21/19 07:00 [place] 5/325 PO 1 tab Q4H PRN Administration Moderate Pain (4-6) Aspirin 81 mg 09/21/19 09:00 09/24/19 07:20 Aspirin Chewable PO 81 mg DAILY KRISHNA Administration Enoxaparin Sodium 40 mg 09/21/19 09:00 09/24/19 07:19 Lovenox SC 40 mg 0900 KRISHNA Administration Famotidine 20 mg 09/22/19 21:00 09/24/19 07:19 Pepcid SLOW IVP 20 mg BID KRISHNA Administration Furosemide 40 mg 09/24/19 10:45 09/24/19 10:49 Lasix SLOW IVP 09/24/19 12:45 40 mg NOW KRISHNA Administration Guaifenesin 200 mg 09/22/19 13:00 09/24/19 07:19 Robitussin Sf PO 200 mg Q4HR KRISHNA Administration Levofloxacin 750 mg/ Device 150 mls @ 100 mls/hr 09/21/19 08:00 09/24/19 07: 18 IVPB 150 mls 0800 KRISHNA Administration Fentanyl Citrate 2,000 mcg/ 100 mls @ 0 mls/hr 09/21/19 12:26 09/24/19 01:41 Sodium Chloride IV 10/21/19 12:26 100 mls INF KRISHNA Administration Protocol Per Protocol Meropenem 2 gm/ Sodium 100 mls @ 100 mls/hr 09/23/19 09:00 09/24/19 09:29 Chloride IVPB 100 mls 0100,0900,1700 KRISHNA Administration Norepinephrine Bitartrate 250 mls @ 0 mls/hr 09/23/19 15:45 09/23/19 16:08 Levophed IVPB 250 mls INF KRISHNA Administration Protocol Titrate Lorazepam 2 mg 09/21/19 12:26 09/24/19 07:20 Ativan SLOW IVP 10/21/19 12:26 2 mg Q1H PRN Administration Breakthrough agitation Methylprednisolone Sodium Succinate 20 mg 09/23/19 12:00 09/24/19 05:03 Solu-Medrol IVP 20 mg Q6HR KRISHNA Administration Morphine Sulfate 2 mg 09/21/19 12:26 09/21/19 12:59 Morphine SLOW IVP 10/21/19 12:26 2 mg Q1H PRN Administration BREAKTHROUGH PAIN/Agitation Ondansetron HCl 4 mg 09/21/19 06:29 09/21/19 10:19 Zofran IVP 4 mg Q6H PRN Administration Nausea/Vomiting Propofol 1,000 mg 09/21/19 12:26 09/24/19 04:29 Diprivan IV 10/21/19 12:26 1,000 mg INF PRN Administration TO ACHIEVE GOAL RASS Protocol Rosuvastatin Calcium 10 mg 09/21/19 09:00 09/24/19 07:20 Crestor PO 10 mg DAILY KRISHNA Administration Sodium Chloride 10 ml 09/21/19 21:00 09/24/19 08:45 Flush - Normal Saline IVF Not Given Q12HR KRISHNA Vecuronium [place] 10 mg 09/23/19 15:42 09/24/19 07:20 Norcuron IV 10 mg PRN PRN Administration MOVEMENT - Exam General Appearance: NAD Eye: PERRL ENT: normocephalic atraumatic Neck: supple, symmetric Heart: RRR, no murmur, no gallops Respiratory: no wheezes, rales Gastrointestinal: soft, non-distended, normal bowel sounds Extremities: no cyanosis, no clubbing Skin: normal turgor Musculoskeletal: normal tone Hosp A/P (1) Acute respiratory failure with hypoxemia Code(s): J96.01 - ACUTE RESPIRATORY FAILURE WITH HYPOXIA Status: Acute (2) Sepsis with acute hypoxic respiratory failure Code(s): A41.9 - SEPSIS, UNSPECIFIED ORGANISM; R65.20 - SEVERE SEPSIS WITHOUT SEPTIC SHOCK; J96.01 - ACUTE RESPIRATORY FAILURE WITH HYPOXIA Status: Acute Qualifiers: Sepsis type: sepsis due to unspecified organism Severe sepsis shock status : without septic shock Qualified Code(s): A41.9 - Sepsis, unspecified organism ; R65.20 - Severe sepsis without septic shock; J96.01 - Acute respiratory failure with hypoxia (3) Pneumonia Code(s): J18.9 - PNEUMONIA, UNSPECIFIED ORGANISM Status: Acute Qualifiers: Pneumonia type: due to unspecified organism Laterality: bilateral Lung location: lower lobe of lung Qualified Code(s): J18.9 - Pneumonia, unspecified organism (4) Metabolic acidosis Code(s): E87.2 - ACIDOSIS Status: Acute (5) Adult respiratory distress syndrome Code(s): J80 - ACUTE RESPIRATORY DISTRESS SYNDROME Status: Acute (6) Dyslipidemia Code(s): E78.5 - HYPERLIPIDEMIA, UNSPECIFIED Status: Chronic - Plan old records reviewed/req, plan discussed w/ family, continue antibiotics, respiratory therapy 09/22/19- pt is awake on vent but chest xray has no improvement, still has acidosis, will change IVF with bicarbonate, continue ventilatory support, medication reviewed and continue to provide symptomatic treatment, so far culture negative, condition is still critical 09/23/19- continue vent support, continue iv antibiotic, medication reviewed and continue to provide symptomatic treatment, no new recommendation 09/24/19- continue ventilatory support, now on bilevel and paralyzed, on sedation, on levaquin, meropenam, continue solumedrol, lasix, tube feeding, updated plan to family bedside.
[2019-09-24] MEDS: Metoclopramide HCl 10 MG/2 ML VIAL IVP SCH ×3 (11:49→23:45)
[2019-09-24] MEDS: Sodium Chloride 0.45% 1,000 ML IV SCH (13:13)
--- NOTE | 2019-09-24 14:07 | EKG ---
Test Reason : Blood Pressure : / mmHG Vent. Rate : 102 BPM Atrial Rate : 102 BPM P-R Int : 146 ms QRS Dur : 078 ms QT Int : 374 ms P-R-T Axes : 059 024 -55 degrees QTc Int : 487 ms Sinus tachycardia Abnormal ECG Confirmed by BIJAL SOLOMON ([id number]), assignment desk editor JL BLANCO ([id number]) on 09/24/2019 2:07:07 PM Referred By: Confirmed By:BIJAL SOLOMON
[2019-09-24] MEDS: Norepinephrine 8 MG/250 ML IVPB SCH (16:30)
[2019-09-24] MEDS: Bacteriostatic Water 30 ML VIAL FS SCH (20:29)
[2019-09-25] MEDS: Diabetic Tussin 200 MG/10 ML UDCUP PO SCH ×4 (00:09→12:26)
[2019-09-25] MEDS: Meropenem 2 GM in Sodium Chloride 0.9% 100 ML IVPB SCH ×3 (00:37→17:32)
[2019-09-25] MEDS: Lorazepam 2 MG/ML VIAL SLOW IVP PRN ×2 (02:47→20:13)
[2019-09-25 05:14] LABS: Anion Gap 15 mmol/L (10-20); BUN (Urea Nitrogen) 25 mg/dL (9.8-20.1); Calc. Creatinine Clearance 65 mL/min (70-130); Calcium 8.2 mg/dL (7.8-10.44); Carbon Dioxide 21 mmol/L (23-31); Chloride 106 mmol/L (98-107); Estimated GFR-MDRD 58; Glucose 223 mg/dL (80-115); Potassium 3.7 mmol/L (3.5-5.1); Sodium 138 mmol/L (136-145)
[2019-09-25 05:25] LABS: #Lymphocytes 1.8 thou/uL (1.20-3.40); #Neutrophils 11.4 thou/uL (1.40-6.50); %Basophils 0.2 % (0.0-1.0); %Eosinophils 0.1 % (0.0-10.0); %Lymphocytes 11.8 % (21.0-51.0); %Neutrophils 74.9 % (42.0-75.0); Hemoglobin 12.1 g/dL (12.0-16.0); Mean Corpuscular HGB CONC 34.3 g/dL (32.0-36.0); Mean Corpuscular Hemoglobin 32.8 pg (27.0-31.0); Mean Corpuscular Volume 95.7 fL (78.0-98.0); Mean Platelet Volume 8.6 fL (7.4-10.4); Platelet Count 281 thou/uL (130-400); RBC Distribution Width 11.9 % (11.5-14.5); Red Blood Cell (RBC) Count 3.69 mill/uL (4.20-5.40); White Blood Cell (WBC) Count 15.2 thou/uL (4.8-10.8)
[2019-09-25] MEDS: Metoclopramide HCl 10 MG/2 ML VIAL IVP SCH ×2 (05:48→12:26)
[2019-09-25] MEDS: methylPREDNISolone Sod Succ 40 MG VIAL IVP SCH ×3 (05:48→20:12)
[2019-09-25] MEDS: Propofol 1,000 MG/100 ML VIAL IV PRN ×3 (05:49→22:25)
[2019-09-25] MEDS: Aspirin Chewable 81 MG TAB PO SCH (07:25)
[2019-09-25] MEDS: Famotidine/PF 20 mg/2ml Vial SLOW IVP SCH (07:27)
[2019-09-25] MEDS: Furosemide 40 MG/4 ML VIAL SLOW IVP SCH (07:27)
[2019-09-25] MEDS: Enoxaparin Sodium 40 MG/0.4 ML SYRINGE SC SCH (07:27)
[2019-09-25] MEDS: Rosuvastatin 10 MG TAB PO SCH (07:28)
[2019-09-25] MEDS: Vecuronium 10 MG VIAL IV PRN ×2 (07:29→14:22)
[2019-09-25] MEDS: Sodium Chloride 0.45% 1,000 ML IV SCH (07:46)
[2019-09-25 08:09] LABS: Actual Bicarbonate (HCO3a) 18.3 mEq/L (22-28); Base Excess (BEa) -3.4 mEq/L (-2.0 to +3.0); Calcium, Ionized 1.14 mmol/L (1.12-1.30); Carboxyhemoglobin (COHb) 0.7 gm% (0.0-3.0); Hemoglobin (Hb) 13.4 g/dL (12.0-16.0); O2 Tension (PaO2) 61.5 mmHg (> 80.0); Potassium - ABG Lab 3.76 mmol/L (3.70-5.30); pH, Arterial 7.49 (7.35-7.45)
[2019-09-25 08:11] LABS: CO2 Tension 24.8 mmHg (35.0-45.0); Puncture Site L.R.
--- NOTE | 2019-09-25 08:39 | PRG ---
DATE OF SERVICE: 09/25/2019 TIME SPENT: 35 minutes of critical care time. SUBJECTIVE: This patient remains heavily sedated and on mechanical ventilation. She is requiring Levophed for blood pressure support. OBJECTIVE: VITAL SIGNS: Temperature is 98.5, pulse 72, blood pressure 121/90. A 24-hour intake 1718, output 2411. Weight 151 pounds. HEENT: Unremarkable. NECK: No adenopathy or JVD. LUNGS: Widespread bilateral crackles. CARDIOVASCULAR: S1 and S2 regular with 3/6 systolic murmur at the left sternal border. ABDOMEN: Soft and nontender to palpation. EXTREMITIES: No clubbing or cyanosis. She has trace edema throughout. DIAGNOSTIC DATA: Microcultures show no growth to date. Sodium 138, potassium 3.7, chloride 106, CO2 of 21, BUN 25, creatinine 0.9, and glucose 223. White blood cell count 15.2, hematocrit 35.3, and platelet count 281. ABG; pH of 7.49, pCO2 of 24, and pO2 of 61, it is on bilevel 32/12 with a rate of 16 and a FiO2 of 50%. ASSESSMENT: 1. Acute respiratory failure requiring mechanical ventilation. 2. Pneumonia with bilateral changes on x-ray, continuing. 3. Acute respiratory distress syndrome. 4. Continued hypotension. PLAN: 1. We will try to wean her pressure settings downwards. 2. Endotracheal tube needs to be pulled back about 1 cm. 3. Continue antibiotics. 4. Continue low-dose diuretics. 5. Anticipate her being intubated for some time. Job ID: [id number]
--- NOTE | 2019-09-25 09:00 | RAD ---
PORTABLE CHEST: Date: 09/25/19 HISTORY: Respiratory distress. COMPARISON: Prior day's exam. FINDINGS: Endotracheal and NG tubes are again noted. The endotracheal tube is just at the level of the yung a nd could be retracted slightly for better placement. Interstitial alveolar lung changes persist. Remy ges are slightly more prominent in the parahilar regions, specifically in the right and left suprahil ar region. IMPRESSION: Slight worsening to the interstitial alveolar parahilar component of the lung changes. POS: OFF
[2019-09-25] MEDS: Bacteriostatic Water 30 ML VIAL FS SCH (12:27)
--- NOTE | 2019-09-25 15:16 | PDOC.HOSPP ---
- Subjective Encounter Date: 09/25/19 Encounter Time: 15:14 Subjective: Unable to obtain history or ROS due to intubated and sedated status - Objective Vital Signs & Weight: Vital Signs (12 hours) Temp Pulse Resp BP Pulse Ox 09/25/19 14:00 16 09/25/19 12:00 97.7 F 16 09/25/19 10:52 74 119/86 09/25/19 10:00 16 09/25/19 09:22 74 122/86 09/25/19 08:00 16 09/25/19 07:53 73 121/92 H 09/25/19 07:48 93 L 09/25/19 07:00 98.5 F 09/25/19 06:00 16 09/25/19 04:00 97.8 F 16 09/25/19 03:42 91 L Weight Admit Weight 148 lb Weight 151 lb 7.321 oz Most Recent Monitor Data Heart Rate from ECG 74 NIBP 125/87 NIBP BP-Mean 99 Respiration from ECG 16 SpO2 100 I&O: 09/24/19 09/25/19 09/26/19 06:59 06:59 06:59 Intake Total 1389.3 1718 260 Output Total 1810 2411 1591 Balance -420.7 -699 -1331 Result Diagrams: 09/25/19 04:30 09/25/19 04:30 Hospitalist ROS - Review of Systems ROS unobtainable: due to endotracheal tube - Medication Medications: Active Medications Generic Name Dose Route Start Last Admin Trade Name Freq PRN Reason Stop Dose Admin Acetaminophen 650 mg 09/21/19 06:29 09/21/19 22:43 Tylenol PO 650 mg Q4H PRN Administration Headache/Fever/Mild Pain (1-3) Artificial Tears 2 drop 09/21/19 07:37 09/25/19 14:22 Tears Naturale EA EYE 2 drop PRN PRN Administration Dry Eyes Aspirin 81 mg 09/21/19 09:00 09/25/19 07:25 Aspirin Chewable PO 81 mg DAILY KRISHNA Administration Enoxaparin Sodium 40 mg 09/21/19 09:00 09/25/19 07:27 Lovenox SC 40 mg 0900 KRISHNA Administration Levofloxacin 750 mg/ Device 150 mls @ 100 mls/hr 09/21/19 08:00 09/25/19 07: 24 IVPB 150 mls 0800 KRISHNA Administration Fentanyl Citrate 2,000 mcg/ 100 mls @ 0 mls/hr 09/21/19 12:26 09/24/19 21:00 Sodium Chloride IV 10/21/19 12:26 100 mls INF KRISHNA Administration Protocol Per Protocol Meropenem 2 gm/ Sodium 100 mls @ 100 mls/hr 09/23/19 09:00 09/25/19 09:13 Chloride IVPB 100 mls 0100,0900,1700 KRISHNA Administration Sodium Chloride 1,000 mls @ 0 mls/hr 09/23/19 07:56 09/25/19 07:46 1/2 Normal Saline IV 1,000 mls .Q0M KRISHNA Administration KVO Norepinephrine Bitartrate 250 mls @ 0 mls/hr 09/23/19 15:45 09/24/19 16:30 Levophed IVPB 250 mls INF KRISHNA Administration Protocol Titrate Lorazepam 2 mg 09/21/19 12:26 09/25/19 02:47 Ativan SLOW IVP 10/21/19 12:26 2 mg Q1H PRN Administration Breakthrough agitation Morphine Sulfate 2 mg 09/21/19 12:26 09/21/19 12:59 Morphine SLOW IVP 10/21/19 12:26 2 mg Q1H PRN Administration BREAKTHROUGH PAIN/Agitation Ondansetron HCl 4 mg 09/21/19 06:29 09/21/19 10:19 Zofran IVP 4 mg Q6H PRN Administration Nausea/Vomiting Propofol 1,000 mg 09/21/19 12:26 09/25/19 13:56 Diprivan IV 10/21/19 12:26 1,000 mg INF PRN Administration TO ACHIEVE GOAL RASS Protocol Rosuvastatin Calcium 10 mg 09/21/19 09:00 09/25/19 07:28 Crestor PO 10 mg DAILY KRISHNA Administration Sodium Chloride 10 ml 09/21/19 21:00 09/25/19 07:29 Flush - Normal Saline IVF 10 ml Q12HR KRISHNA Administration - Exam Neck: supple, symmetric, no thyromegaly Heart: RRR, no gallops, no rubs, normal peripheral pulses Heart - other findings: 3/6 systolic murmur present Respiratory: CTAB, no wheezes, no rales Gastrointestinal: soft, non-tender, non-distended, normal bowel sounds Gastrointestinal - other findings: Chery in place Hosp A/P (1) Adult respiratory distress syndrome Code(s): J80 - ACUTE RESPIRATORY DISTRESS SYNDROME Status: Acute Plan: On PEEP of 12 and FiO2 of 50% On sedation and paralytics High risk due to need for mech. ventilation pulm. on board Mgmt. per pulm. Not ready to wean yet (2) Pneumonia Code(s): J18.9 - PNEUMONIA, UNSPECIFIED ORGANISM Status: Acute Qualifiers: Pneumonia type: due to unspecified organism Laterality: bilateral Lung location: lower lobe of lung Qualified Code(s): J18.9 - Pneumonia, unspecified organism Plan: On IV ABX Pulm. & critical care medicine on board Nebs (3) Shock Code(s): R57.9 - SHOCK, UNSPECIFIED Status: Acute Plan: On levophed Pulm. & critical care on board Likely septic in nature On abx (4) Acute respiratory failure with hypoxemia Code(s): J96.01 - ACUTE RESPIRATORY FAILURE WITH HYPOXIA Status: Acute Plan: Due to ARDS Vent. mgmt. per pulm (5) Dyslipidemia Code(s): E78.5 - HYPERLIPIDEMIA, UNSPECIFIED Status: Chronic Plan: Statin therapy - Plan chery catheter, continue antibiotics, DVT proph w/lovenox
[2019-09-25] MEDS ORDERED: Vecuronium 10 MG VIAL IVP PRN (15:28)
[2019-09-25] MEDS: fentaNYL Citrate/PF 2,000 MCG in Sodium Chloride 0.9% 60 ML IV SCH (17:25)
[2019-09-26] MEDS: Meropenem 2 GM in Sodium Chloride 0.9% 100 ML IVPB SCH ×3 (01:31→17:25)
[2019-09-26 04:20] LABS: Hemoglobin A1c 5.6 % (4.0-6.0)
[2019-09-26 04:38] LABS: ALT (SGPT) 11 U/L (8-55); AST (SGOT) 15 U/L (5-34); Alkaline Phosphatase 60 U/L (40-110); Anion Gap 15 mmol/L (10-20); BUN (Urea Nitrogen) 30 mg/dL (9.8-20.1); Bilirubin, Total 0.3 mg/dL (0.2-1.2); Calc. Creatinine Clearance 66 mL/min (70-130); Calcium 8.3 mg/dL (7.8-10.44); Carbon Dioxide 22 mmol/L (23-31); Chloride 107 mmol/L (98-107); Estimated GFR-MDRD 58; Globulin 2.7 g/dL (2.4-3.5); Glucose 214 mg/dL (80-115); Potassium 3.9 mmol/L (3.5-5.1); Protein, Total 5.7 g/dL (6.0-8.3); Sodium 140 mmol/L (136-145)
[2019-09-26] MEDS: Propofol 1,000 MG/100 ML VIAL IV PRN ×2 (05:16→22:34)
[2019-09-26 05:22] LABS: Band 12 % (5-11); Eosinophils 1 % (0-10); Hemoglobin 12.6 g/dL (12.0-16.0); Lymphocytes 16 % (21-51); MDiff Complete? YES; Mean Corpuscular HGB CONC 34.3 g/dL (32.0-36.0); Mean Corpuscular Hemoglobin 33.2 pg (27.0-31.0); Mean Corpuscular Volume 96.9 fL (78.0-98.0); Mean Platelet Volume 8.5 fL (7.4-10.4); Monocytes 10 % (0-10); Myelocyte 1 % (0-0); Neutrophil 60 % (42-75); Platelet Count 242 thou/uL (130-400); White Blood Cell (WBC) Count 11.7 thou/uL (4.8-10.8)
[2019-09-26 07:03] LABS: Actual Bicarbonate (HCO3a) 21.8 mEq/L (22-28); Base Excess (BEa) 2.3 mEq/L (-2.0 to +3.0); Calcium, Ionized 1.14 mmol/L (1.12-1.30); Carboxyhemoglobin (COHb) 0.9 gm% (0.0-3.0); Hemoglobin (Hb) 14.2 g/dL (12.0-16.0); O2 Tension (PaO2) 138.9 mmHg (> 80.0); Potassium - ABG Lab 3.42 mmol/L (3.70-5.30)
[2019-09-26 07:08] LABS: CO2 Tension 22.4 mmHg (35.0-45.0); pH, Arterial 7.61 (7.35-7.45)
[2019-09-26 07:09] LABS: Puncture Site LR
--- NOTE | 2019-09-26 08:45 | RAD ---
PORTABLE CHEST: DATE: 09/26/2019. PROVIDED CLINICAL HISTORY: Pneumonia. FINDINGS: Comparison 09/25/2019. Persistent but improved bilateral predominantly perihilar airspace disease. No pleural fluid or pneumothorax apparent. Endotracheal tube and enteric catheter are again noted wi th slight interval retraction of the ET tube. IMPRESSION: Persistent but improved bilateral parahilar airspace disease. POS: OFF
[2019-09-26] MEDS: Aspirin Chewable 81 MG TAB PO SCH (08:59)
[2019-09-26] MEDS: Rosuvastatin 10 MG TAB PO SCH (08:59)
[2019-09-26] MEDS: Enoxaparin Sodium 40 MG/0.4 ML SYRINGE SC SCH (09:00)
[2019-09-26] MEDS: Pantoprazole 40 MG VIAL IVP SCH (09:00)
[2019-09-26] MEDS: methylPREDNISolone Sod Succ 40 MG VIAL IVP SCH ×2 (09:00→21:07)
--- NOTE | 2019-09-26 11:06 | PDOC.HOSPP ---
- Subjective Encounter Date: 09/26/19 Encounter Time: 10:55 Subjective: Unable to obtain history or ROS as the patient is intubated and sedated on the vent. - Objective Vital Signs & Weight: Vital Signs (12 hours) Temp Pulse Resp BP Pulse Ox 09/26/19 10:44 82 114/81 09/26/19 08:00 97.6 F 16 96 09/26/19 06:44 66 108/76 09/26/19 06:00 16 09/26/19 04:00 16 09/26/19 03:00 97.8 F 09/26/19 02:00 16 09/26/19 00:00 98.4 F 16 Weight Admit Weight 148 lb Weight 155 lb 6.814 oz Most Recent Monitor Data Heart Rate from ECG 67 NIBP 120/83 NIBP BP-Mean 95 Respiration from ECG 16 SpO2 100 I&O: 09/25/19 09/26/19 09/27/19 06:59 06:59 06:59 Intake Total 1718 2297.9 Output Total 2411 2256 40 Balance -693 41.9 -40 Result Diagrams: 09/26/19 04:00 09/26/19 04:00 Hospitalist ROS - Review of Systems ROS unobtainable: due to mental status - Medication Medications: Active Medications Generic Name Dose Route Start Last Admin Trade Name Freq PRN Reason Stop Dose Admin Acetaminophen 650 mg 09/21/19 06:29 09/21/19 22:43 Tylenol PO 650 mg Q4H PRN Administration Headache/Fever/Mild Pain (1-3) Artificial Tears 2 drop 09/21/19 07:37 09/25/19 14:22 Tears Naturale EA EYE 2 drop PRN PRN Administration Dry Eyes Aspirin 81 mg 09/21/19 09:00 09/26/19 08:59 Aspirin Chewable PO 81 mg DAILY KRISHNA Administration Enoxaparin Sodium 40 mg 09/21/19 09:00 09/26/19 09:00 Lovenox SC 40 mg 0900 KRISHNA Administration Levofloxacin 750 mg/ Device 150 mls @ 100 mls/hr 09/21/19 08:00 09/26/19 08: 58 IVPB 150 mls 0800 KRISHNA Administration Fentanyl Citrate 2,000 mcg/ 100 mls @ 0 mls/hr 09/21/19 12:26 09/25/19 17:25 Sodium Chloride IV 10/21/19 12:26 100 mls INF KRISHNA Administration Protocol Per Protocol Meropenem 2 gm/ Sodium 100 mls @ 100 mls/hr 09/23/19 09:00 09/26/19 11:03 Chloride IVPB 100 mls 0100,0900,1700 KRISHNA Administration Sodium Chloride 1,000 mls @ 0 mls/hr 09/23/19 07:56 09/25/19 07:46 1/2 Normal Saline IV 1,000 mls .Q0M KRISHNA Administration KVO Norepinephrine Bitartrate 250 mls @ 0 mls/hr 09/23/19 15:45 09/24/19 16:30 Levophed IVPB 250 mls INF KRISHNA Administration Protocol Titrate Lorazepam 2 mg 09/21/19 12:26 09/25/19 20:13 Ativan SLOW IVP 10/21/19 12:26 2 mg Q1H PRN Administration Breakthrough agitation Methylprednisolone Sodium Succinate 40 mg 09/25/19 21:00 09/26/19 09:00 Solu-Medrol IVP 40 mg BID KRISHNA Administration Morphine Sulfate 2 mg 09/21/19 12:26 09/21/19 12:59 Morphine SLOW IVP 10/21/19 12:26 2 mg Q1H PRN Administration BREAKTHROUGH PAIN/Agitation Ondansetron HCl 4 mg 09/21/19 06:29 09/21/19 10:19 Zofran IVP 4 mg Q6H PRN Administration Nausea/Vomiting Pantoprazole Sodium 40 mg 09/26/19 09:00 09/26/19 09:00 Protonix IVP 40 mg DAILY KRISHNA Administration Propofol 1,000 mg 09/21/19 12:26 09/26/19 05:16 Diprivan IV 10/21/19 12:26 1,000 mg INF PRN Administration TO ACHIEVE GOAL RASS Protocol Rosuvastatin Calcium 10 mg 09/21/19 09:00 09/26/19 08:59 Crestor PO 10 mg DAILY KRISHNA Administration Sodium Chloride 10 ml 09/21/19 21:00 09/26/19 09:00 Flush - Normal Saline IVF 10 ml Q12HR KRISHNA Administration Vecuronium [place] 10 mg 09/25/19 15:28 09/25/19 20:42 Norcuron IVP 10 mg PRN PRN Administration MOVEMENT - Exam ENT: normocephalic atraumatic, no oropharyngeal lesions Neck: supple, no lymphadenopathy Heart: RRR, no gallops, no rubs, normal peripheral pulses Respiratory: CTAB, no wheezes, normal chest expansion Gastrointestinal: soft, non-tender, non-distended, normal bowel sounds, no palpable masses Extremities: no cyanosis, no clubbing, no edema Hosp A/P (1) Adult respiratory distress syndrome Code(s): J80 - ACUTE RESPIRATORY DISTRESS SYNDROME Status: Acute (2) Pneumonia Code(s): J18.9 - PNEUMONIA, UNSPECIFIED ORGANISM Status: Acute Qualifiers: Pneumonia type: due to unspecified organism Laterality: bilateral Lung location: lower lobe of lung Qualified Code(s): J18.9 - Pneumonia, unspecified organism (3) Shock Code(s): R57.9 - SHOCK, UNSPECIFIED Status: Acute (4) Acute respiratory failure with hypoxemia Code(s): J96.01 - ACUTE RESPIRATORY FAILURE WITH HYPOXIA Status: Acute (5) Dyslipidemia Code(s): E78.5 - HYPERLIPIDEMIA, UNSPECIFIED Status: Chronic - Plan chery catheter, continue antibiotics, DVT proph w/lovenox, GI proph Hosp A/P (1) Adult respiratory distress syndrome Code(s): J80 - ACUTE RESPIRATORY DISTRESS SYNDROME Status: Acute Plan: On PEEP of 12 and FiO2 of 50% On sedation and paralytics High risk due to need for mech. ventilation, IV abx and pressor therapy pulm. on board. Vent. mgmt. per pulm. (2) Pneumonia Code(s): J18.9 - PNEUMONIA, UNSPECIFIED ORGANISM Status: Acute Qualifiers: Pneumonia type: due to unspecified organism Laterality: bilateral Lung location: lower lobe of lung Qualified Code(s): J18.9 - Pneumonia, unspecified organism Plan: On IV ABX. Abx mgmt. per pulm. Pulm. & critical care medicine on board Nebs (3) Shock Code(s): R57.9 - SHOCK, UNSPECIFIED Status: Acute Plan: Pulm. & critical care on board Likely septic in nature On abx (4) Acute respiratory failure with hypoxemia Code(s): J96.01 - ACUTE RESPIRATORY FAILURE WITH HYPOXIA Status: Acute Plan: Due to ARDS Vent. mgmt. per pulm (5) Dyslipidemia Code(s): E78.5 - HYPERLIPIDEMIA, UNSPECIFIED Status: Chronic Plan: Statin therapy
[2019-09-26] MEDS: fentaNYL Citrate/PF 2,000 MCG in Sodium Chloride 0.9% 60 ML IV SCH (16:16)
--- NOTE | 2019-09-26 18:37 | PRG ---
DATE OF SERVICE: 09/26/2019 SUBJECTIVE: Ms. Morley remains mechanically ventilated, although as I have explained to the sister, she is slowly improving. OBJECTIVE: VITAL SIGNS: Blood pressure 101/73, heart rate is in 60s, and respiratory rate is in the teens. LUNGS: Clear anteriorly. HEART: Regular rate and rhythm. ABDOMEN: Soft. EXTREMITIES: Without asymmetry. NEUROLOGIC: Not assessed since she was sedated for ventilation. LABORATORY DATA: White count is 11.7, hemoglobin 12.6, and platelets 242. Sodium 140, potassium 3.9, chloride 107, bicarb 22, BUN 30, and creatinine 0.98. The pH 7.61, CO2 of 22, PO2 of 138, ventilation has been adjusted. Chest x-ray in my opinion shows slight improvement. IMPRESSION: Pneumonia with acute respiratory distress syndrome. PLAN: Continue supportive care with slow weaning from mechanical ventilation. CRITICAL CARE TIME: 30 minutes. Job ID: [id number]
[2019-09-27] MEDS: Meropenem 2 GM in Sodium Chloride 0.9% 100 ML IVPB SCH ×3 (01:27→16:41)
[2019-09-27 04:07] LABS: #Eosinphils 0.1 thou/uL (0.0-0.7); #Lymphocytes 1.7 thou/uL (1.20-3.40); #Monocytes 1.4 thou/uL (0.11-0.59); #Neutrophils 9.2 thou/uL (1.40-6.50); %Eosinophils 0.8 % (0.0-10.0); %Lymphocytes 13.9 % (21.0-51.0); %Monocytes 11.4 % (0.0-10.0); %Neutrophils 73.9 % (42.0-75.0); Hemoglobin 12.5 g/dL (12.0-16.0); Mean Corpuscular Hemoglobin 32.7 pg (27.0-31.0); Mean Corpuscular Volume 96.3 fL (78.0-98.0); Mean Platelet Volume 8.1 fL (7.4-10.4); Platelet Count 275 thou/uL (130-400); RBC Distribution Width 12.1 % (11.5-14.5); White Blood Cell (WBC) Count 12.4 thou/uL (4.8-10.8)
[2019-09-27 04:27] LABS: ALT (SGPT) 9 U/L (8-55); AST (SGOT) 8 U/L (5-34); Alkaline Phosphatase 54 U/L (40-110); Anion Gap 13 mmol/L (10-20); BUN (Urea Nitrogen) 34 mg/dL (9.8-20.1); Bilirubin, Total 0.3 mg/dL (0.2-1.2); Calc. Creatinine Clearance 80 mL/min (70-130); Calcium 8.3 mg/dL (7.8-10.44); Carbon Dioxide 25 mmol/L (23-31); Chloride 106 mmol/L (98-107); Estimated GFR-MDRD 72; Globulin 2.6 g/dL (2.4-3.5); Glucose 206 mg/dL (80-115); Potassium 3.9 mmol/L (3.5-5.1); Protein, Total 5.6 g/dL (6.0-8.3); Sodium 140 mmol/L (136-145)
[2019-09-27] MEDS: Propofol 1,000 MG/100 ML VIAL IV PRN ×3 (06:16→20:43)
[2019-09-27 06:45] LABS: Actual Bicarbonate (HCO3a) 28.1 mEq/L (22-28); Base Excess (BEa) 5.3 mEq/L (-2.0 to +3.0); CO2 Tension 35.2 mmHg (35.0-45.0); Calcium, Ionized 1.17 mmol/L (1.12-1.30); Carboxyhemoglobin (COHb) 0.4 gm% (0.0-3.0); O2 Tension (PaO2) 64.3 mmHg (> 80.0); Potassium - ABG Lab 3.91 mmol/L (3.70-5.30); pH, Arterial 7.52 (7.35-7.45)
[2019-09-27 07:24] LABS: Puncture Site LR
[2019-09-27] MEDS: Enoxaparin Sodium 40 MG/0.4 ML SYRINGE SC SCH (09:03)
[2019-09-27] MEDS: Aspirin Chewable 81 MG TAB PO SCH (09:03)
[2019-09-27] MEDS: Rosuvastatin 10 MG TAB PO SCH (09:03)
[2019-09-27] MEDS: Pantoprazole 40 MG VIAL IVP SCH (09:04)
[2019-09-27] MEDS: methylPREDNISolone Sod Succ 40 MG VIAL IVP SCH ×2 (09:06→20:43)
--- NOTE | 2019-09-27 09:25 | RAD ---
CHEST ONE VIEW: INDICATIONS: Evaluate for pneumonia. COMPARISON: Prior exam dated 09/26/2019. FINDINGS: Left sided perihilar and right infrahilar air space opacities persist. There has been interval develo pment of a small left and a moderate right pleural effusion. There is pulmonary vascular congestion. The patient is intubated with gastric catheter placement. No pneumothorax is evident. IMPRESSION: 1. Bilateral pleural effusions, moderate on the right and small on the left, are new. Findings are [place] spicious for volume overload. 2. Persistent cardiomegaly with pulmonary vascular congestion. 3. Left perihilar and right infrahilar air space opacities may reflect edema or pneumonia. POS: TPC
[2019-09-27] MEDS ORDERED: Furosemide 40 MG/4 ML VIAL SLOW IVP SCH (10:00)
--- NOTE | 2019-09-27 10:38 | PRG ---
DATE OF SERVICE: 09/27/2019 A 35 minutes of critical care time. SUBJECTIVE: The patient is about the same. Remains on mechanical ventilation. Sedated and on a Levophed drip. OBJECTIVE: VITAL SIGNS: Temperature is 97.9, pulse 66, blood pressure 101/68, and O2 saturation 94%. Intake for 24 hours 1670 and output 970. Weight is 153 pounds. She has been in positive fluid balance for everyday except for the and the . HEENT: Unremarkable. NECK: No adenopathy or JVD. LUNGS: Diminished breath sounds at bases. CARDIAC: S1 and S2. Regular. ABDOMEN: Soft. EXTREMITIES: Trace edema. LABORATORY DATA: A pH of 7.52, pCO2 of 35, and pO2 of 64 on SIMV rate 16, tidal volume 450, PEEP 8, pressure support 10, and FiO2 of 50%. White blood cell count 12.4, hematocrit 36.7, and platelet count 275. Sodium 140, potassium 3.9, chloride 106, CO2 of 25, BUN 34, creatinine 0.8, and glucose 206. ASSESSMENT: 1. Pneumonia. 2. Acute respiratory distress syndrome. 3. Hypotension - probably chronically low blood pressure, aggravated by sedation. 4. Pulmonary edema on current x-ray. PLAN: 1. I will give her a dose of diuretics. 2. She is not weanable beyond that at this point. We will continue to follow her daily. Updated sister at bedside. Job ID: [id number]
[2019-09-27] MEDS ORDERED: Norepinephrine 8 MG in Dextrose 5% in Water 242 ML IVPB PRN (12:07)
[2019-09-27] MEDS: Norepinephrine 8 MG/250 ML IVPB SCH (12:44)
[2019-09-27] MEDS: fentaNYL Citrate/PF 2,000 MCG in Sodium Chloride 0.9% 60 ML IV SCH (13:04)
--- NOTE | 2019-09-27 14:45 | PDOC.HOSPP ---
- Subjective Encounter Date: 09/27/19 Encounter Time: 13:30 Subjective: Sister at bedside. Pt. unable to provide history or ROS due to being intubated and sedated. - Objective Vital Signs & Weight: Vital Signs (12 hours) Temp Resp Pulse Ox 09/27/19 14:00 16 09/27/19 12:00 16 09/27/19 11:00 98.2 F 09/27/19 10:00 16 09/27/19 08:00 16 09/27/19 07:52 97 09/27/19 07:00 97.9 F 09/27/19 06:00 16 09/27/19 04:00 98.2 F 16 Weight Admit Weight 148 lb Weight 153 lb 14.122 oz Most Recent Monitor Data Heart Rate from ECG 79 NIBP 98/74 NIBP BP-Mean 82 Respiration from ECG 16 SpO2 98 I&O: 09/26/19 09/27/19 09/28/19 06:59 06:59 06:59 Intake Total 2297.9 1670.5 Output Total 2256 970 1570 Balance 41.9 700.5 -1570 Result Diagrams: 09/27/19 03:30 09/27/19 03:30 Hospitalist ROS - Review of Systems ROS unobtainable: due to endotracheal tube - Medication Medications: Active Medications Generic Name Dose Route Start Last Admin Trade Name Freq PRN Reason Stop Dose Admin Acetaminophen 650 mg 09/21/19 06:29 09/21/19 22:43 Tylenol PO 650 mg Q4H PRN Administration Headache/Fever/Mild Pain (1-3) Artificial Tears 2 drop 09/21/19 07:37 09/25/19 14:22 Tears Naturale EA EYE 2 drop PRN PRN Administration Dry Eyes Aspirin 81 mg 09/21/19 09:00 09/27/19 09:03 Aspirin Chewable PO 81 mg DAILY KRISHNA Administration Enoxaparin Sodium 40 mg 09/21/19 09:00 09/27/19 09:03 Lovenox SC 40 mg 0900 KRISHNA Administration Levofloxacin 750 mg/ Device 150 mls @ 100 mls/hr 09/21/19 08:00 09/27/19 08: 49 IVPB 150 mls 0800 KRISHNA Administration Fentanyl Citrate 2,000 mcg/ 100 mls @ 0 mls/hr 09/21/19 12:26 09/27/19 13:04 Sodium Chloride IV 10/21/19 12:26 100 mls INF KRISHNA Administration Protocol Per Protocol Meropenem 2 gm/ Sodium 100 mls @ 100 mls/hr 09/23/19 09:00 09/27/19 09:04 Chloride IVPB 100 mls 0100,0900,1700 KRISHNA Administration Sodium Chloride 1,000 mls @ 0 mls/hr 09/23/19 07:56 09/25/19 07:46 1/2 Normal Saline IV 1,000 mls .Q0M KRISHNA Administration KVO Lorazepam 2 mg 09/21/19 12:26 09/25/19 20:13 Ativan SLOW IVP 10/21/19 12:26 2 mg Q1H PRN Administration Breakthrough agitation Methylprednisolone Sodium Succinate 40 mg 09/25/19 21:00 09/27/19 09:06 Solu-Medrol IVP 40 mg BID KRISHNA Administration Morphine Sulfate 2 mg 09/21/19 12:26 09/21/19 12:59 Morphine SLOW IVP 10/21/19 12:26 2 mg Q1H PRN Administration BREAKTHROUGH PAIN/Agitation Ondansetron HCl 4 mg 09/21/19 06:29 09/21/19 10:19 Zofran IVP 4 mg Q6H PRN Administration Nausea/Vomiting Pantoprazole Sodium 40 mg 09/26/19 09:00 09/27/19 09:04 Protonix IVP 40 mg DAILY KRISHNA Administration Propofol 1,000 mg 09/21/19 12:26 09/27/19 12:58 Diprivan IV 10/21/19 12:26 1,000 mg INF PRN Administration TO ACHIEVE GOAL RASS Protocol Rosuvastatin Calcium 10 mg 09/21/19 09:00 09/27/19 09:03 Crestor PO 10 mg DAILY KRISHNA Administration Sodium Chloride 10 ml 09/21/19 21:00 09/27/19 09:21 Flush - Normal Saline IVF 10 ml Q12HR KRISHNA Administration Vecuronium Bishop 10 mg 09/25/19 15:28 09/25/19 20:42 Norcuron IVP 10 mg PRN PRN Administration MOVEMENT - Exam ENT: normocephalic atraumatic, moist mucosa Neck: supple, no thyromegaly, no lymphadenopathy Heart: RRR, no murmur, normal peripheral pulses Respiratory: CTAB, no ronchi Gastrointestinal: soft, non-tender, non-distended, normal bowel sounds Hosp A/P (1) Adult respiratory distress syndrome Code(s): J80 - ACUTE RESPIRATORY DISTRESS SYNDROME Status: Acute (2) Pneumonia Code(s): J18.9 - PNEUMONIA, UNSPECIFIED ORGANISM Status: Acute Qualifiers: Pneumonia type: due to unspecified organism Laterality: bilateral Lung location: lower lobe of lung Qualified Code(s): J18.9 - Pneumonia, unspecified organism (3) Shock Code(s): R57.9 - SHOCK, UNSPECIFIED Status: Acute (4) Acute respiratory failure with hypoxemia Code(s): J96.01 - ACUTE RESPIRATORY FAILURE WITH HYPOXIA Status: Acute (5) Dyslipidemia Code(s): E78.5 - HYPERLIPIDEMIA, UNSPECIFIED Status: Chronic - Plan Hosp A/P (1) Adult respiratory distress syndrome Code(s): J80 - ACUTE RESPIRATORY DISTRESS SYNDROME Status: Acute Plan: On PEEP of 12 and FiO2 of 50% On sedation and paralytics Not weanable at this point due to high PEEP & FiO2 requirements High risk due to need for mech. ventilation, IV abx and pressor therapy pulm. on board. Vent. mgmt. per pulm. (2) Pneumonia Code(s): J18.9 - PNEUMONIA, UNSPECIFIED ORGANISM Status: Acute Qualifiers: Pneumonia type: due to unspecified organism Laterality: bilateral Lung location: lower lobe of lung Qualified Code(s): J18.9 - Pneumonia, unspecified organism Plan: On IV ABX. Abx mgmt. per pulm. Pulm. & critical care medicine on board Nebs (3) Shock Code(s): R57.9 - SHOCK, UNSPECIFIED Status: Acute Plan: Pulm. & critical care on board On levophed per campus rep Likely septic in nature On abx (4) Acute respiratory failure with hypoxemia Code(s): J96.01 - ACUTE RESPIRATORY FAILURE WITH HYPOXIA Status: Acute Plan: Due to ARDS Vent. mgmt. per pulm (5) Dyslipidemia Code(s): E78.5 - HYPERLIPIDEMIA, UNSPECIFIED Status: Chronic Plan: Statin therapy
[2019-09-28] MEDS: Meropenem 2 GM in Sodium Chloride 0.9% 100 ML IVPB SCH ×3 (00:27→16:20)
[2019-09-28 04:30] LABS: #Monocytes 1.8 thou/uL (0.11-0.59); #Neutrophils 9.4 thou/uL (1.40-6.50); %Basophils 0.1 % (0.0-1.0); %Eosinophils 0.1 % (0.0-10.0); %Monocytes 13.4 % (0.0-10.0); %Neutrophils 71.4 % (42.0-75.0); Hemoglobin 12.4 g/dL (12.0-16.0); Mean Corpuscular HGB CONC 33.6 g/dL (32.0-36.0); Mean Corpuscular Hemoglobin 32.4 pg (27.0-31.0); Mean Corpuscular Volume 96.3 fL (78.0-98.0); Platelet Count 294 thou/uL (130-400); Red Blood Cell (RBC) Count 3.83 mill/uL (4.20-5.40); White Blood Cell (WBC) Count 13.1 thou/uL (4.8-10.8)
[2019-09-28 04:51] LABS: ALT (SGPT) 13 U/L (8-55); AST (SGOT) 19 U/L (5-34); Alkaline Phosphatase 54 U/L (40-110); Anion Gap 12 mmol/L (10-20); BUN (Urea Nitrogen) 34 mg/dL (9.8-20.1); Bilirubin, Total 0.4 mg/dL (0.2-1.2); Calc. Creatinine Clearance 76 mL/min (70-130); Calcium 8.3 mg/dL (7.8-10.44); Carbon Dioxide 26 mmol/L (23-31); Chloride 104 mmol/L (98-107); Estimated GFR-MDRD 68; Globulin 2.5 g/dL (2.4-3.5); Glucose 182 mg/dL (80-115); Potassium 4.2 mmol/L (3.5-5.1); Protein, Total 5.5 g/dL (6.0-8.3); Sodium 138 mmol/L (136-145)
[2019-09-28] MEDS: Propofol 1,000 MG/100 ML VIAL IV PRN ×2 (05:03→20:07)
[2019-09-28 06:46] LABS: Actual Bicarbonate (HCO3a) 26.2 mEq/L (22-28); Base Excess (BEa) 4.1 mEq/L (-2.0 to +3.0); CO2 Tension 31.5 mmHg (35.0-45.0); Calcium, Ionized 1.17 mmol/L (1.12-1.30); Carboxyhemoglobin (COHb) 0.9 gm% (0.0-3.0); Hemoglobin (Hb) 12.7 g/dL (12.0-16.0); O2 Tension (PaO2) 89.7 mmHg (> 80.0); Potassium - ABG Lab 3.82 mmol/L (3.70-5.30); pH, Arterial 7.54 (7.35-7.45)
[2019-09-28 06:48] LABS: Puncture Site LR
[2019-09-28 06:49] LABS: ALV-art Gradient 227.425 (0-20)
[2019-09-28] MEDS: Enoxaparin Sodium 40 MG/0.4 ML SYRINGE SC SCH (07:43)
[2019-09-28] MEDS: Pantoprazole 40 MG VIAL IVP SCH (07:44)
[2019-09-28] MEDS: Rosuvastatin 10 MG TAB PO SCH (07:52)
[2019-09-28] MEDS: Aspirin Chewable 81 MG TAB PO SCH (07:52)
--- NOTE | 2019-09-28 08:06 | RAD ---
EXAM: Single view of the chest HISTORY: Pneumonia COMPARISON: 09/27/2019 FINDINGS: Single view of the chest shows a normal sized cardiomediastinal silhouette. The endotrache al tube and NG tube are unchanged in position. There are bilateral veil-like opacities which likely represent layering pleural effusions. The bones are unremarkable. IMPRESSION: Stable bilateral pleural effusions
[2019-09-28] MEDS: methylPREDNISolone Sod Succ 40 MG VIAL IVP SCH ×2 (08:36→20:03)
[2019-09-28] MEDS: fentaNYL Citrate/PF 2,000 MCG in Sodium Chloride 0.9% 60 ML IV SCH (09:17)
[2019-09-28] MEDS ORDERED: acetaZOLAMIDE Sodium 500 MG in Sodium Chloride 0.9% 50 ML IVPB SCH (09:30)
--- NOTE | 2019-09-28 09:56 | PRG ---
DATE OF SERVICE: 09/28/2019 35 minutes of critical care time. SUBJECTIVE: The patient remains intubated on mechanical ventilation. She did well yesterday. OBJECTIVE: VITAL SIGNS: Temperature is 98.4, pulse 75, blood pressure 121/79, O2 saturation 97%. A 24-hour intake 2167, output 3100. HEENT: Unremarkable. NECK: No adenopathy or JVD. LUNGS: Fairly clear anteriorly. CARDIAC: S1, S2, regular with 2/6 systolic murmur. ABDOMEN: Soft, nontender. EXTREMITIES: Trace edema throughout. LABORATORY DATA: Sodium 130, potassium 4.2, chloride 104, CO2 of 26, BUN 34, creatinine 0.8, glucose 192, albumin 3.0. White blood cell count 13.1, hematocrit 36.9, and platelet count 294. PH of 7.54, pCO2 of 31, pO2 of 89 on SIMV rate 16, tidal volume 450, PEEP 8, pressure support 10, FiO2 50%. IMAGING STUDIES: Chest x-ray shows a mildly improved bilateral pulmonary edema. ASSESSMENT: 1. Acute respiratory failure requiring mechanical ventilation. 2. Pneumonia. 3. Mitral regurgitation with pulmonary edema. 4. Hypotension. PLAN: 1. I will try to turn down her ventilator a little bit today. 2. Give her a dose of acetazolamide. 3. Up in a chair as tolerated. 4. Continue antibiotics with probable last day of antibiotics being Monday, which would give her 7 full days of the meropenem. Job ID: [id number]
--- NOTE | 2019-09-28 10:19 | PDOC.HOSPP ---
- Subjective Encounter Date: 09/28/19 Encounter Time: 09:56 Subjective: Intubated and sedated. Can't provide history or ROS due to the same. Sister at the bedside. - Objective Vital Signs & Weight: Vital Signs (12 hours) Temp Pulse Resp BP Pulse Ox 09/28/19 07:21 16 97 09/28/19 06:33 65 95/67 09/28/19 06:00 16 09/28/19 04:00 98.4 F 16 09/28/19 02:22 69 99/68 09/28/19 02:00 16 09/28/19 00:09 69 09/28/19 00:00 97.9 F 16 Weight Admit Weight 148 lb Weight 149 lb 4.047 oz Most Recent Monitor Data Heart Rate from ECG 75 NIBP 121/79 NIBP BP-Mean 93 Respiration from ECG 16 SpO2 97 I&O: 09/27/19 09/28/19 09/29/19 06:59 06:59 06:59 Intake Total 1670.5 2167.7 Output Total 970 3100 280 Balance 700.5 -932.3 -280 Result Diagrams: 09/28/19 04:15 09/28/19 04:15 Hospitalist ROS - Review of Systems ROS unobtainable: due to mental status - Medication Medications: Active Medications Generic Name Dose Route Start Last Admin Trade Name Freq PRN Reason Stop Dose Admin Acetaminophen 650 mg 09/21/19 06:29 09/21/19 22:43 Tylenol PO 650 mg Q4H PRN Administration Headache/Fever/Mild Pain (1-3) Artificial Tears 2 drop 09/21/19 07:37 09/25/19 14:22 Tears Naturale EA EYE 2 drop PRN PRN Administration Dry Eyes Aspirin 81 mg 09/21/19 09:00 09/28/19 07:52 Aspirin Chewable PO 81 mg DAILY KRISHNA Administration Enoxaparin Sodium 40 mg 09/21/19 09:00 09/28/19 07:43 Lovenox SC 40 mg 0900 KRISHNA Administration Levofloxacin 750 mg/ Device 150 mls @ 100 mls/hr 09/21/19 08:00 09/28/19 07: 40 IVPB 150 mls 0800 KRISHNA Administration Fentanyl Citrate 2,000 mcg/ 100 mls @ 0 mls/hr 09/21/19 12:26 09/28/19 09:17 Sodium Chloride IV 10/21/19 12:26 100 mls INF KRISHNA Administration Protocol Per Protocol Meropenem 2 gm/ Sodium 100 mls @ 100 mls/hr 09/23/19 09:00 09/28/19 08:36 Chloride IVPB 100 mls 0100,0900,1700 KRISHNA Administration Acetazolamide Sodium 500 mg/ 50 mls @ 100 mls/hr 09/28/19 09:30 09/28/19 09: 56 Sodium Chloride IVPB 09/28/19 12:00 50 mls NOW KRISHNA Administration Lorazepam 2 mg 09/21/19 12:26 09/25/19 20:13 Ativan SLOW IVP 10/21/19 12:26 2 mg Q1H PRN Administration Breakthrough agitation Methylprednisolone Sodium Succinate 40 mg 09/25/19 21:00 09/28/19 08:36 Solu-Medrol IVP 40 mg BID KRISHNA Administration Morphine Sulfate 2 mg 09/21/19 12:26 09/21/19 12:59 Morphine SLOW IVP 10/21/19 12:26 2 mg Q1H PRN Administration BREAKTHROUGH PAIN/Agitation Ondansetron HCl 4 mg 09/21/19 06:29 09/21/19 10:19 Zofran IVP 4 mg Q6H PRN Administration Nausea/Vomiting Pantoprazole Sodium 40 mg 09/26/19 09:00 09/28/19 07:44 Protonix IVP 40 mg DAILY KRISHNA Administration Propofol 1,000 mg 09/21/19 12:26 09/28/19 05:03 Diprivan IV 10/21/19 12:26 1,000 mg INF PRN Administration TO ACHIEVE GOAL RASS Protocol Rosuvastatin Calcium 10 mg 09/21/19 09:00 09/28/19 07:52 Crestor PO 10 mg DAILY KRISHNA Administration Sodium Chloride 10 ml 09/21/19 21:00 09/28/19 08:36 Flush - Normal Saline IVF 10 ml Q12HR KRISHNA Administration - Exam Neck: supple, symmetric, no thyromegaly, no lymphadenopathy Heart: RRR, no gallops, no rubs, murmur present (systolic in mitral area) Respiratory: CTAB, no wheezes, no ronchi Gastrointestinal: soft, non-tender, non-distended, normal bowel sounds Hosp A/P (1) Adult respiratory distress syndrome Code(s): J80 - ACUTE RESPIRATORY DISTRESS SYNDROME Status: Acute (2) Pneumonia Code(s): J18.9 - PNEUMONIA, UNSPECIFIED ORGANISM Status: Acute Qualifiers: Pneumonia type: due to unspecified organism Laterality: bilateral Lung location: lower lobe of lung Qualified Code(s): J18.9 - Pneumonia, unspecified organism (3) Shock Code(s): R57.9 - SHOCK, UNSPECIFIED Status: Acute (4) Acute respiratory failure with hypoxemia Code(s): J96.01 - ACUTE RESPIRATORY FAILURE WITH HYPOXIA Status: Acute (5) Dyslipidemia Code(s): E78.5 - HYPERLIPIDEMIA, UNSPECIFIED Status: Chronic - Plan Hosp A/P (1) Adult respiratory distress syndrome Code(s): J80 - ACUTE RESPIRATORY DISTRESS SYNDROME Status: Acute Plan: On PEEP of 7 and FiO2 of 40% Improving respiratory status On sedation and paralytics Not weanable at this point yet per pulm. High risk due to need for mech. ventilation, IV abx and pressor therapy pulm. on board. Vent. mgmt. per pulm. (2) Pneumonia Code(s): J18.9 - PNEUMONIA, UNSPECIFIED ORGANISM Status: Acute Qualifiers: Pneumonia type: due to unspecified organism Laterality: bilateral Lung location: lower lobe of lung Qualified Code(s): J18.9 - Pneumonia, unspecified organism Plan: On IV ABX. Abx mgmt. per pulm. Pulm. & critical care medicine on board Nebs (3) Shock Code(s): R57.9 - SHOCK, UNSPECIFIED Status: Acute Plan: Pulm. & critical care on board On levophed per dipper and drier Likely septic in nature Continue abx (4) Acute respiratory failure with hypoxemia Code(s): J96.01 - ACUTE RESPIRATORY FAILURE WITH HYPOXIA Status: Acute Plan: Due to ARDS Vent. mgmt. per pulm (5) Dyslipidemia Code(s): E78.5 - HYPERLIPIDEMIA, UNSPECIFIED Status: Chronic Plan: Statin therapy
[2019-09-28] MEDS ORDERED: Norepinephrine 8 MG/0.9% NS 250 ML IVPB SCH (22:40)
[2019-09-29] MEDS: Meropenem 2 GM in Sodium Chloride 0.9% 100 ML IVPB SCH ×3 (00:07→17:13)
[2019-09-29] MEDS: fentaNYL Citrate/PF 2,000 MCG in Sodium Chloride 0.9% 60 ML IV SCH (07:41)
--- NOTE | 2019-09-29 08:01 | RAD ---
EXAM: Single view of the chest HISTORY: Pneumonia COMPARISON: 09/20/2019 FINDINGS: Single view of the chest shows a normal sized cardiomediastinal silhouette. The lines and tubes are unchanged in position. There are moderate bilateral veil-like opacities which likely represent layering pleural effusions. The bones are unremarkable. IMPRESSION: Bilateral pleural effusions.
[2019-09-29 08:02] LABS: Actual Bicarbonate (HCO3a) 24.9 mEq/L (22-28); Base Excess (BEa) 0.4 mEq/L (-2.0 to +3.0); CO2 Tension 39.4 mmHg (35.0-45.0); Calcium, Ionized 1.22 mmol/L (1.12-1.30); Carboxyhemoglobin (COHb) 0.4 gm% (0.0-3.0); Hemoglobin (Hb) 13.3 g/dL (12.0-16.0); O2 Tension (PaO2) 89.9 mmHg (> 80.0); Potassium - ABG Lab 3.76 mmol/L (3.70-5.30); pH, Arterial 7.42 (7.35-7.45)
[2019-09-29 08:03] LABS: Peep/CPAP 7.5 cmH2O; Puncture Site LRA
[2019-09-29 08:08] LABS: #Eosinphils 0.1 thou/uL (0.0-0.7); #Lymphocytes 2.6 thou/uL (1.20-3.40); #Monocytes 2.2 thou/uL (0.11-0.59); #Neutrophils 11.7 thou/uL (1.40-6.50); %Basophils 0.1 % (0.0-1.0); %Eosinophils 0.4 % (0.0-10.0); %Lymphocytes 15.9 % (21.0-51.0); %Monocytes 13.2 % (0.0-10.0); %Neutrophils 70.4 % (42.0-75.0); Hemoglobin 12.1 g/dL (12.0-16.0); Mean Corpuscular HGB CONC 32.8 g/dL (32.0-36.0); Mean Corpuscular Hemoglobin 32.3 pg (27.0-31.0); Mean Corpuscular Volume 98.6 fL (78.0-98.0); Mean Platelet Volume 7.6 fL (7.4-10.4); Platelet Count 316 thou/uL (130-400); RBC Distribution Width 11.9 % (11.5-14.5); Red Blood Cell (RBC) Count 3.75 mill/uL (4.20-5.40); White Blood Cell (WBC) Count 16.6 thou/uL (4.8-10.8)
[2019-09-29 08:27] LABS: Anion Gap 10 mmol/L (10-20); BUN (Urea Nitrogen) 35 mg/dL (9.8-20.1); Calc. Creatinine Clearance 83 mL/min (70-130); Calcium 8.4 mg/dL (7.8-10.44); Carbon Dioxide 26 mmol/L (23-31); Chloride 107 mmol/L (98-107); Estimated GFR-MDRD 80; Glucose 147 mg/dL (80-115); Potassium 3.9 mmol/L (3.5-5.1); Sodium 139 mmol/L (136-145)
[2019-09-29] MEDS: Propofol 1,000 MG/100 ML VIAL IV PRN ×2 (09:41→19:32)
[2019-09-29] MEDS: Sodium Chloride 0.45% 1,000 ML IV SCH (09:44)
[2019-09-29] MEDS: Enoxaparin Sodium 40 MG/0.4 ML SYRINGE SC SCH (09:59)
[2019-09-29] MEDS: Aspirin Chewable 81 MG TAB PO SCH (09:59)
[2019-09-29] MEDS: Rosuvastatin 10 MG TAB PO SCH (09:59)
[2019-09-29] MEDS: methylPREDNISolone Sod Succ 40 MG VIAL IVP SCH ×2 (09:59→20:43)
[2019-09-29] MEDS: Pantoprazole 40 MG VIAL IVP SCH (09:59)
[2019-09-29] MEDS ORDERED: Furosemide 40 MG/4 ML VIAL SLOW IVP SCH (10:45)
--- NOTE | 2019-09-29 11:53 | PRG ---
DATE OF SERVICE: 09/29/2019 TIME SPENT: 35 minutes of critical care time. SUBJECTIVE: This patient remains intubated on mechanical ventilation. Today, she is more awake than she has been. OBJECTIVE: VITAL SIGNS: Her temperature is 98.2, pulse 67, blood pressure 93/68, and O2 saturation 96%. She is on Levophed drip at 4 mcg/minute, mainly compensates for the sedatives. Her intake for the last 24 hours has been 1950, output 2054. She has been in negative fluid balance for the last 2 days, and her weight is down to 147 pounds. HEENT: Unremarkable except for the endotracheal tube and the orogastric tube in place. NECK: No adenopathy or JVD. LUNGS: Diminished breath sounds in the bases. CARDIAC: S1 and S2. Regular. ABDOMEN: Soft and nontender. EXTREMITIES: Muscle wasting. No edema. IMAGING: Her chest x-ray shows bilateral effusions. LABORATORY DATA: Sodium 139, potassium 3.9, chloride 107, CO2 of 26, BUN 35, creatinine 0.7, glucose 147. A pH of 7.42, pCO2 of 39, pO2 of 90 on SIMV rate 11, tidal volume 450, PEEP 7.5, pressure support 11, FiO2 of 41%. White blood cell count 16.6, hematocrit 32.3, and platelet count 316. ASSESSMENT: 1. Acute respiratory failure, requiring mechanical ventilation. 2. Bilateral pneumonia. 3. Continued fluid overload. 4. Mitral regurgitation. 5. Hypotension. PLAN: She will get another dose of diuretics today. I have turned down her ventilator settings. I spoke to the family at bedside. The next 48 hours will be spent trying to get the patient to breathe more on her own in preparation for extubation. Job ID: [id number]
--- NOTE | 2019-09-29 14:35 | PDOC.HOSPP ---
- Subjective Encounter Date: 09/29/19 Encounter Time: 09:45 Subjective: Intubated and sedated. Unable to provide history or ROS. - Objective Vital Signs & Weight: Vital Signs (12 hours) Temp Pulse Resp BP 09/29/19 14:01 86 90/63 09/29/19 14:00 17 09/29/19 12:00 11 L 09/29/19 10:57 104 H 137/93 H 09/29/19 10:00 11 L 09/29/19 08:00 11 L 09/29/19 07:45 67 98/71 09/29/19 07:00 98.7 F 09/29/19 06:00 11 L 09/29/19 04:00 98.2 F 11 L Weight Admit Weight 148 lb Weight 147 lb 0.773 oz Most Recent Monitor Data Heart Rate from ECG 101 NIBP 107/76 NIBP BP-Mean 86 Respiration from ECG 15 SpO2 99 I&O: 09/28/19 09/29/19 09/30/19 06:59 06:59 06:59 Intake Total 2167.7 1950.9 490 Output Total 3100 2055 965 Balance -932.3 -104.1 -475 Result Diagrams: 09/29/19 08:00 09/29/19 08:00 Hospitalist ROS - Medication Medications: Active Medications Generic Name Dose Route Start Last Admin Trade Name Freq PRN Reason Stop Dose Admin Acetaminophen 650 mg 09/21/19 06:29 09/21/19 22:43 Tylenol PO 650 mg Q4H PRN Administration Headache/Fever/Mild Pain (1-3) Artificial Tears 2 drop 09/21/19 07:37 09/25/19 14:22 Tears Naturale EA EYE 2 drop PRN PRN Administration Dry Eyes Aspirin 81 mg 09/21/19 09:00 09/29/19 09:59 Aspirin Chewable PO 81 mg DAILY KRISHNA Administration Enoxaparin Sodium 40 mg 09/21/19 09:00 09/29/19 09:59 Lovenox SC 40 mg 0900 KRISHNA Administration Levofloxacin 750 mg/ Device 150 mls @ 100 mls/hr 09/21/19 08:00 09/29/19 09: 41 IVPB 150 mls 0800 KRISHNA Administration Fentanyl Citrate 2,000 mcg/ 100 mls @ 0 mls/hr 09/21/19 12:26 09/29/19 07:41 Sodium Chloride IV 10/21/19 12:26 100 mls INF KRISHNA Administration Protocol Per Protocol Meropenem 2 gm/ Sodium 100 mls @ 100 mls/hr 09/23/19 09:00 09/29/19 11:39 Chloride IVPB 100 mls 0100,0900,1700 KRISHNA Administration Norepinephrine Bitartrate 250 mls @ 0 mls/hr 09/28/19 22:40 09/29/19 00:07 Levophed IVPB 250 mls INF KRISHNA Administration Protocol Titrate Lorazepam 2 mg 09/21/19 12:26 09/25/19 20:13 Ativan SLOW IVP 10/21/19 12:26 2 mg Q1H PRN Administration Breakthrough agitation Methylprednisolone Sodium Succinate 40 mg 09/25/19 21:00 09/29/19 09:59 Solu-Medrol IVP 40 mg BID KRISHNA Administration Morphine Sulfate 2 mg 09/21/19 12:26 09/21/19 12:59 Morphine SLOW IVP 10/21/19 12:26 2 mg Q1H PRN Administration BREAKTHROUGH PAIN/Agitation Ondansetron HCl 4 mg 09/21/19 06:29 09/21/19 10:19 Zofran IVP 4 mg Q6H PRN Administration Nausea/Vomiting Pantoprazole Sodium 40 mg 09/26/19 09:00 09/29/19 09:59 Protonix IVP 40 mg DAILY KRISHNA Administration Propofol 1,000 mg 09/21/19 12:26 09/29/19 09:41 Diprivan IV 10/21/19 12:26 1,000 mg INF PRN Administration TO ACHIEVE GOAL RASS Protocol Rosuvastatin Calcium 10 mg 09/21/19 09:00 09/29/19 09:59 Crestor PO 10 mg DAILY KRISHNA Administration Sodium Chloride 10 ml 09/21/19 21:00 09/29/19 10:05 Flush - Normal Saline IVF 10 ml Q12HR KRISHNA Administration - Exam Eye: PERRL, anicteric sclera ENT: normocephalic atraumatic, no oropharyngeal lesions Neck: supple, no thyromegaly Heart: RRR, no gallops, no rubs, normal peripheral pulses Gastrointestinal: soft, non-tender, non-distended, normal bowel sounds Hosp A/P (1) Adult respiratory distress syndrome Code(s): J80 - ACUTE RESPIRATORY DISTRESS SYNDROME Status: Acute (2) Pneumonia Code(s): J18.9 - PNEUMONIA, UNSPECIFIED ORGANISM Status: Acute Qualifiers: Pneumonia type: due to unspecified organism Laterality: bilateral Lung location: lower lobe of lung Qualified Code(s): J18.9 - Pneumonia, unspecified organism (3) Shock Code(s): R57.9 - SHOCK, UNSPECIFIED Status: Acute (4) Acute respiratory failure with hypoxemia Code(s): J96.01 - ACUTE RESPIRATORY FAILURE WITH HYPOXIA Status: Acute (5) Dyslipidemia Code(s): E78.5 - HYPERLIPIDEMIA, UNSPECIFIED Status: Chronic - Plan Hosp A/P (1) Adult respiratory distress syndrome Code(s): J80 - ACUTE RESPIRATORY DISTRESS SYNDROME Status: Acute Plan: On PEEP of 10 and FiO2 of 40% Improving respiratory status On sedation and paralytics Not weanable at this point yet per pulm. High risk due to need for mech. ventilation, IV abx and pressor therapy pulm. on board. Vent. mgmt. per pulm. (2) Pneumonia Code(s): J18.9 - PNEUMONIA, UNSPECIFIED ORGANISM Status: Acute Qualifiers: Pneumonia type: due to unspecified organism Laterality: bilateral Lung location: lower lobe of lung Qualified Code(s): J18.9 - Pneumonia, unspecified organism Plan: On IV ABX. Abx mgmt. per pulm. Pulm. & critical care medicine on board Nebs (3) Shock Code(s): R57.9 - SHOCK, UNSPECIFIED Status: Acute Plan: Pulm. & critical care on board On levophed per field machinist Likely septic in nature Continue abx (4) Acute respiratory failure with hypoxemia Code(s): J96.01 - ACUTE RESPIRATORY FAILURE WITH HYPOXIA Status: Acute Plan: Due to ARDS Vent. mgmt. per pulm (5) Dyslipidemia Code(s): E78.5 - HYPERLIPIDEMIA, UNSPECIFIED Status: Chronic Plan: Statin therapy
[2019-09-29] MEDS: Lorazepam 2 MG/ML VIAL SLOW IVP PRN (16:36)
[2019-09-30] MEDS: Meropenem 2 GM in Sodium Chloride 0.9% 100 ML IVPB SCH ×2 (00:48→10:23)
[2019-09-30 04:35] LABS: #Lymphocytes 1.8 thou/uL (1.20-3.40); #Monocytes 1.9 thou/uL (0.11-0.59); #Neutrophils 13.1 thou/uL (1.40-6.50); %Basophils 0.1 % (0.0-1.0); %Eosinophils 0.2 % (0.0-10.0); %Lymphocytes 10.4 % (21.0-51.0); %Neutrophils 78.2 % (42.0-75.0); Hemoglobin 12.3 g/dL (12.0-16.0); Mean Corpuscular HGB CONC 33.4 g/dL (32.0-36.0); Mean Corpuscular Hemoglobin 32.4 pg (27.0-31.0); Mean Corpuscular Volume 97.1 fL (78.0-98.0); Platelet Count 243 thou/uL (130-400); RBC Distribution Width 11.8 % (11.5-14.5); White Blood Cell (WBC) Count 16.7 thou/uL (4.8-10.8)
[2019-09-30 05:03] LABS: ALT (SGPT) 57 U/L (8-55); AST (SGOT) 48 U/L (5-34); Albumin 3.1 g/dL (3.4-4.8); Alkaline Phosphatase 62 U/L (40-110); Anion Gap 11 mmol/L (10-20); BUN (Urea Nitrogen) 35 mg/dL (9.8-20.1); Bilirubin, Total 0.2 mg/dL (0.2-1.2); Calc. Creatinine Clearance 79 mL/min (70-130); Calcium 8.5 mg/dL (7.8-10.44); Carbon Dioxide 28 mmol/L (23-31); Chloride 105 mmol/L (98-107); Estimated GFR-MDRD 75; Glucose 123 mg/dL (80-115); Potassium 3.8 mmol/L (3.5-5.1); Protein, Total 6.1 g/dL (6.0-8.3); Sodium 140 mmol/L (136-145)
[2019-09-30] MEDS: Propofol 1,000 MG/100 ML VIAL IV PRN (06:19)
[2019-09-30 06:45] LABS: Actual Bicarbonate (HCO3a) 25.9 mEq/L (22-28); CO2 Tension 37.8 mmHg (35.0-45.0); Calcium, Ionized 1.19 mmol/L (1.12-1.30); Hemoglobin (Hb) 12.3 g/dL (12.0-16.0); O2 Tension (PaO2) 69.7 mmHg (> 80.0); Potassium - ABG Lab 3.27 mmol/L (3.70-5.30); pH, Arterial 7.45 (7.35-7.45)
[2019-09-30 06:49] LABS: Peep/CPAP 7.5 cmH2O; Puncture Site RRA
--- NOTE | 2019-09-30 07:48 | RAD ---
EXAM: CHEST ONE VIEW HISTORY: Pneumonia. Follow-up evaluation COMPARISON: 09/29/2019 FINDINGS: Endotracheal tube and nasogastric tubes remain in place and unchanged in position. Cardiac silhouette remains magnified by projection. There are bilateral pleural effusions with increased patchy perihilar interstitial densities bilaterally greater on the left which may be related to associated b ilateral pneumonia or asymmetric pulmonary edema. No other interval change. IMPRESSION: Bilateral pleural effusions with perihilar opacities. Perihilar interstitial and alveolar opacities w ith may be related to either asymmetric pulmonary edema or bilateral pneumonia.
[2019-09-30] MEDS: Rosuvastatin 10 MG TAB PO SCH (08:57)
[2019-09-30] MEDS: Enoxaparin Sodium 40 MG/0.4 ML SYRINGE SC SCH (08:57)
[2019-09-30] MEDS: methylPREDNISolone Sod Succ 40 MG VIAL IVP SCH (08:58)
[2019-09-30] MEDS: Pantoprazole 40 MG VIAL IVP SCH (08:58)
[2019-09-30] MEDS: Aspirin Chewable 81 MG TAB PO SCH (08:58)
--- NOTE | 2019-09-30 09:03 | PDOC.HOSPP ---
- Subjective Encounter Date: 09/30/19 Encounter Time: 08:56 Subjective: intubated, more alert, responsive - Objective Vital Signs & Weight: Vital Signs (12 hours) Temp Pulse Resp BP 09/30/19 07:57 104 H 145/89 H 09/30/19 06:00 12 09/30/19 04:00 97.8 F 23 H 09/30/19 03:02 102 H 09/30/19 02:00 22 H 09/30/19 00:00 9 L 09/29/19 23:39 103 H 09/29/19 23:00 97.8 F 09/29/19 22:00 10 L Weight Admit Weight 148 lb Weight 143 lb 15.39 oz Most Recent Monitor Data Heart Rate from ECG 110 NIBP 127/95 NIBP BP-Mean 105 Respiration from ECG 16 SpO2 96 I&O: 09/29/19 09/30/19 10/01/19 06:59 06:59 06:59 Intake Total 1950.9 2220.2 Output Total 0387 2924 Balance -104.1 -703.8 Result Diagrams: 09/30/19 04:06 09/30/19 04:06 Radiology Reviewed by me: Yes (CXR- ET tube, bilat fluffy infiltrates) Hospitalist ROS - Medication Medications: Active Medications Generic Name Dose Route Start Last Admin Trade Name Freq PRN Reason Stop Dose Admin Acetaminophen 650 mg 09/21/19 06:29 09/21/19 22:43 Tylenol PO 650 mg Q4H PRN Administration Headache/Fever/Mild Pain (1-3) Artificial Tears 2 drop 09/21/19 07:37 09/25/19 14:22 Tears Naturale EA EYE 2 drop PRN PRN Administration Dry Eyes Aspirin 81 mg 09/21/19 09:00 09/29/19 09:59 Aspirin Chewable PO 81 mg DAILY KRISHNA Administration Enoxaparin Sodium 40 mg 09/21/19 09:00 09/29/19 09:59 Lovenox SC 40 mg 0900 KRISHNA Administration Levofloxacin 750 mg/ Device 150 mls @ 100 mls/hr 09/21/19 08:00 09/29/19 09: 41 IVPB 150 mls 0800 KRISHNA Administration Fentanyl Citrate 2,000 mcg/ 100 mls @ 0 mls/hr 09/21/19 12:26 09/29/19 07:41 Sodium Chloride IV 10/21/19 12:26 100 mls INF KRISHNA Administration Protocol Per Protocol Meropenem 2 gm/ Sodium 100 mls @ 100 mls/hr 09/23/19 09:00 09/30/19 00:48 Chloride IVPB 100 mls 0100,0900,1700 KRISHNA Administration Norepinephrine Bitartrate 250 mls @ 0 mls/hr 09/28/19 22:40 09/29/19 00:07 Levophed IVPB 250 mls INF KRISHNA Administration Protocol Titrate Lorazepam 2 mg 09/21/19 12:26 09/29/19 16:36 Ativan SLOW IVP 10/21/19 12:26 2 mg Q1H PRN Administration Breakthrough agitation Methylprednisolone Sodium Succinate 40 mg 09/25/19 21:00 09/29/19 20:43 Solu-Medrol IVP 40 mg BID KRISHNA Administration Morphine Sulfate 2 mg 09/21/19 12:26 09/21/19 12:59 Morphine SLOW IVP 10/21/19 12:26 2 mg Q1H PRN Administration BREAKTHROUGH PAIN/Agitation Ondansetron HCl 4 mg 09/21/19 06:29 09/21/19 10:19 Zofran IVP 4 mg Q6H PRN Administration Nausea/Vomiting Pantoprazole Sodium 40 mg 09/26/19 09:00 09/29/19 09:59 Protonix IVP 40 mg DAILY KRISHNA Administration Propofol 1,000 mg 09/21/19 12:26 09/30/19 06:19 Diprivan IV 10/21/19 12:26 1,000 mg INF PRN Administration TO ACHIEVE GOAL RASS Protocol Rosuvastatin Calcium 10 mg 09/21/19 09:00 09/29/19 09:59 Crestor PO 10 mg DAILY KRISHNA Administration Sodium Chloride 10 ml 09/21/19 21:00 09/29/19 20:43 Flush - Normal Saline IVF 10 ml Q12HR KRISHNA Administration - Exam Neck: no JVD Heart: RRR, III/IV Heart - other findings: holosys mumur Respiratory - other findings: clear to auscultation in anterior [place] Gastrointestinal: soft, normal bowel sounds Extremities: no edema Hosp A/P (1) Acute respiratory failure with hypoxemia Code(s): J96.01 - ACUTE RESPIRATORY FAILURE WITH HYPOXIA Status: Acute (2) Adult respiratory distress syndrome Code(s): J80 - ACUTE RESPIRATORY DISTRESS SYNDROME Status: Acute (3) Pneumonia Code(s): J18.9 - PNEUMONIA, UNSPECIFIED ORGANISM Status: Acute Qualifiers: Pneumonia type: due to unspecified organism Laterality: bilateral Lung location: lower lobe of lung Qualified Code(s): J18.9 - Pneumonia, unspecified organism (4) Sepsis with acute hypoxic respiratory failure Code(s): A41.9 - SEPSIS, UNSPECIFIED ORGANISM; R65.20 - SEVERE SEPSIS WITHOUT SEPTIC SHOCK; J96.01 - ACUTE RESPIRATORY FAILURE WITH HYPOXIA Status: Acute Qualifiers: Sepsis type: sepsis due to unspecified organism Severe sepsis shock status : without septic shock Qualified Code(s): A41.9 - Sepsis, unspecified organism ; R65.20 - Severe sepsis without septic shock; J96.01 - Acute respiratory failure with hypoxia (5) Mitral insufficiency Status: Acute - Plan cont iv antibx cont vent support cont enteral nutition cont iv steroids
[2019-09-30] MEDS ORDERED: Furosemide 20 MG/2 ML VIAL SLOW IVP SCH (13:15)
[2019-09-30] MEDS: Ondansetron PF 4 MG/2 ML Vial IVP PRN (13:54)
--- NOTE | 2019-09-30 13:56 | PRG ---
DATE OF SERVICE: 09/30/2019 SERVICE: Pulmonary Medicine. INTERVAL HISTORY: The patient is doing great from respiratory standpoint. Oxygen requirements are decreasing. She is cool, calm, and collected on a sedation holiday. She is answering all commands, and moving all extremities. Otherwise, there has been no interval change to her condition. PHYSICAL EXAMINATION: VITAL SIGNS: Afebrile. Pulse 106, blood pressure 112/76, respirations 15, saturation 95%, currently on 33% FiO2 and a PEEP of 5. GENERAL: The patient is awake and alert, in no apparent distress. LUNGS: Good air entry. Minimal crackles are present. There are some rhonchi that clear with cough. No wheezing or prolonged expiratory phase is present. HEART: Normal rate, regular. ABDOMEN: Soft, nontender, and nondistended. Bowel sounds are positive. MUSCULOSKELETAL: No cyanosis or clubbing. There is no pitting in the bilateral lower extremities. NEUROLOGIC: Grossly nonfocal. LABORATORY DATA: WBC 16.7, hemoglobin 12.3, and platelets are 243,000. INR 0.27. PH 7.45, pCO2 of 38, PO2 of 69, corresponding to a saturation of 94%. Basic metabolic profile is otherwise unremarkable. Liver function studies are remarkable for an elevated AST and ALT, which are new. Vancomycin trough 18.6. Strep and Legionella urine antigens are unremarkable. Blood cultures x2, influenza A and B and respiratory culture are negative to date. IMAGING: Chest x-ray demonstrates interval clearing of the right lower lobe infiltrate. She has a likely effusion on the right. Pulmonary vascular congestion is otherwise noted. Endotracheal tube is in very good position. ASSESSMENT: 1. Acute hypoxic respiratory failure. 2. Community-acquired pneumonia, status post full course of antibiotics with Levaquin and meropenem. 3. Acute on chronic diastolic, and valvular heart failure. 4. Mitral regurgitation, moderate. DISCUSSION AND PLAN: We will give her a sedation holiday. I will put her on a spontaneous breathing trial. If she meets criteria, extubation will be considered. She has completed a 9-day course of antibiotics. As such, her antibiotics will be interrupted. I will repeat a sputum for Gram stain and culture. I will give her one dose of Lasix today. We will continue other supportive care including feeds. She has known sleep apnea at home. As such, she should be able to tolerate noninvasive ventilation with minimal delta pressure if it were necessary. Her minute volume is quite low on the ventilator, so my suspicion is that there is no fibroproliferative process occurring. Critical Care will follow. CRITICAL CARE TIME: 30 minutes. Job ID: [id number]
[2019-10-01] MEDS ORDERED: Chloraseptic Spray 180 ml Bottle PO PRN (02:20)
[2019-10-01] MEDS ORDERED: diphenhydrAMINE 12.5 MG in Sodium Chloride 0.9% 50 ML IVPB SCH (02:30)
[2019-10-01] MEDS: Cepastat Lozenges 1 LOZ PO PRN ×3 (02:42→08:19)
[2019-10-01 06:20] LABS: #Eosinphils 0.2 thou/uL (0.0-0.7); #Lymphocytes 3.6 thou/uL (1.20-3.40); #Monocytes 2.6 thou/uL (0.11-0.59); #Neutrophils 13.5 thou/uL (1.40-6.50); %Basophils 0.2 % (0.0-1.0); %Lymphocytes 18.1 % (21.0-51.0); %Monocytes 12.9 % (0.0-10.0); %Neutrophils 67.8 % (42.0-75.0); Hemoglobin 12.7 g/dL (12.0-16.0); Mean Corpuscular HGB CONC 31.6 g/dL (32.0-36.0); Mean Corpuscular Hemoglobin 30.5 pg (27.0-31.0); Mean Corpuscular Volume 96.5 fL (78.0-98.0); Mean Platelet Volume 7.6 fL (7.4-10.4); Platelet Count 284 thou/uL (130-400); Red Blood Cell (RBC) Count 4.15 mill/uL (4.20-5.40); White Blood Cell (WBC) Count 19.9 thou/uL (4.8-10.8)
[2019-10-01 06:40] LABS: Anion Gap 10 mmol/L (10-20); BUN (Urea Nitrogen) 26 mg/dL (9.8-20.1); Calc. Creatinine Clearance 93 mL/min (70-130); Calcium 8.5 mg/dL (7.8-10.44); Carbon Dioxide 27 mmol/L (23-31); Chloride 107 mmol/L (98-107); Estimated GFR-MDRD Greater than 90; Glucose 93 mg/dL (80-115); Magnesium 2.6 mg/dL (1.6-2.6); Potassium 3.1 mmol/L (3.5-5.1); Sodium 141 mmol/L (136-145)
[2019-10-01 06:47] LABS: Phosphorus 1.9 mg/dL (2.3-4.7)
[2019-10-01] MEDS ORDERED: Potassium Phosphate 15 MMOL in Sodium Chloride 0.9% 250 ML 250 ML IVPB SCH (07:30)
[2019-10-01] MEDS: methylPREDNISolone Sod Succ 40 MG VIAL IVP SCH (08:19)
[2019-10-01] MEDS: Aspirin Chewable 81 MG TAB PO SCH (08:19)
[2019-10-01] MEDS: Pantoprazole 40 MG VIAL IVP SCH (08:19)
[2019-10-01] MEDS: Enoxaparin Sodium 40 MG/0.4 ML SYRINGE SC SCH (08:19)
[2019-10-01] MEDS: Rosuvastatin 10 MG TAB PO SCH (08:19)
--- NOTE | 2019-10-01 09:19 | PDOC.HOSPP ---
- Subjective Encounter Date: 10/01/19 Encounter Time: 09:14 Subjective: extubated, does have some sob with exertion Sats ok - Objective Vital Signs & Weight: Vital Signs (12 hours) Temp Pulse Ox 10/01/19 07:46 94 L 10/01/19 07:00 98.0 F 10/01/19 04:00 98.2 F 10/01/19 00:00 97.9 F Weight Admit Weight 148 lb Weight 146 lb 2.664 oz Most Recent Monitor Data Heart Rate from ECG 100 NIBP 132/86 NIBP BP-Mean 101 Respiration from ECG 22 SpO2 97 I&O: 09/30/19 10/01/19 10/02/19 06:59 06:59 06:59 Intake Total 2220.2 842.2 50 Output Total 2924 2315 85 Balance -703.8 -1472.8 -35 Result Diagrams: 10/01/19 06:06 10/01/19 06:06 Hospitalist ROS - Medication Medications: Active Medications Generic Name Dose Route Start Last Admin Trade Name Freq PRN Reason Stop Dose Admin Acetaminophen 650 mg 09/21/19 06:29 09/21/19 22:43 Tylenol PO 650 mg Q4H PRN Administration Headache/Fever/Mild Pain (1-3) Artificial Tears 2 drop 09/21/19 07:37 09/25/19 14:22 Tears Naturale EA EYE 2 drop PRN PRN Administration Dry Eyes Aspirin 81 mg 09/21/19 09:00 10/01/19 08:19 Aspirin Chewable PO 81 mg DAILY KRISHNA Administration Enoxaparin Sodium 40 mg 09/21/19 09:00 10/01/19 08:19 Lovenox SC 40 mg 0900 KRISHNA Administration Potassium Phosphate 15 mmol/ 255 mls @ 62.5 mls/hr 10/01/19 07:30 10/01/19 07 :15 Sodium Chloride IVPB 10/01/19 11:35 255 mls NOW KRISHNA Administration Methylprednisolone Sodium Succinate 40 mg 10/01/19 09:00 10/01/19 08:19 Solu-Medrol IVP 40 mg DAILY KRISHNA Administration Ondansetron HCl 4 mg 09/21/19 06:29 09/30/19 13:54 Zofran IVP 4 mg Q6H PRN Administration Nausea/Vomiting Pantoprazole Sodium 40 mg 09/26/19 09:00 10/01/19 08:19 Protonix IVP 40 mg DAILY KRISHNA Administration Phenol 0 ml 10/01/19 02:20 10/01/19 08:20 Chloraseptic [place] 180 Ml Bot PO 2 sprays BIDPRN PRN Administration Sore Throat Rosuvastatin Calcium 10 mg 09/21/19 09:00 10/01/19 08:19 Crestor PO 10 mg DAILY KRISHNA Administration Sodium Chloride 10 ml 09/21/19 21:00 10/01/19 08:20 Flush - Normal Saline IVF 10 ml Q12HR KRISHNA Administration Throat Lozenges 1 elroy 10/01/19 02:20 10/01/19 08:19 Cepastat Lozenges PO 1 elroy Q2H PRN Administration Sore Throat - Exam General Appearance: awake alert Neck: no JVD Heart: RRR, III/IV Heart - other findings: holosystolic Respiratory - other findings: scattered bilat rales, good inspiration Gastrointestinal: soft, normal bowel sounds Extremities: no edema Hosp A/P (1) Acute respiratory failure with hypoxemia Code(s): J96.01 - ACUTE RESPIRATORY FAILURE WITH HYPOXIA Status: Acute (2) Adult respiratory distress syndrome Code(s): J80 - ACUTE RESPIRATORY DISTRESS SYNDROME Status: Acute (3) Pneumonia Code(s): J18.9 - PNEUMONIA, UNSPECIFIED ORGANISM Status: Acute Qualifiers: Pneumonia type: due to unspecified organism Laterality: bilateral Lung location: lower lobe of lung Qualified Code(s): J18.9 - Pneumonia, unspecified organism (4) Sepsis with acute hypoxic respiratory failure Code(s): A41.9 - SEPSIS, UNSPECIFIED ORGANISM; R65.20 - SEVERE SEPSIS WITHOUT SEPTIC SHOCK; J96.01 - ACUTE RESPIRATORY FAILURE WITH HYPOXIA Status: Acute Qualifiers: Sepsis type: sepsis due to unspecified organism Severe sepsis shock status : without septic shock Qualified Code(s): A41.9 - Sepsis, unspecified organism ; R65.20 - Severe sepsis without septic shock; J96.01 - Acute respiratory failure with hypoxia (5) Mitral insufficiency Status: Acute Qualifiers: Cardiac valve disease etiology: nonrheumatic Qualified Code(s): I34.0 - Nonrheumatic mitral (valve) insufficiency - Plan off vent, antibx DXCed po nutrition, probiotic, PT/OT discuss with pulmonology
[2019-10-01] MEDS ORDERED: Saccharomyces boulardii 250 MG CAP PO SCH (10:00)
--- NOTE | 2019-10-01 12:10 | PRG ---
DATE OF SERVICE: 10/01/2019 SUBJECTIVE: The patient was extubated yesterday. She has actually done fairly decent overnight. She is complaining of pain at the region of decubitus ulcer. OBJECTIVE: VITAL SIGNS: Temperature is 98.0, pulse 105, blood pressure 121/77, O2 saturation 97%. HEENT; Unremarkable. NECK: No adenopathy or JVD. CHEST: Fairly clear anteriorly. CARDIAC: S1, S2. Regular. ABDOMEN: Soft. EXTREMITIES: No edema. LABORATORY DATA: White blood cell count 19, hematocrit 40, and platelet count 284. Sodium 141, potassium 3.1, chloride 107, CO2 of 27, BUN 26, creatinine 0.6, glucose 93, phosphorus 1.9. ASSESSMENT: 1. Pneumonia. 2. Mitral regurgitation. 3. Status post respiratory failure, requiring mechanical ventilation for 9 days. PLAN: 1. Her potassium and phosphate will be replaced. 2. PT, OT, and speech therapy. 3. Guaifenesin as needed for cough. 4. Antibiotics have been stopped. 5. It is mainly rehabilitative issue and eventually she will probably need to be to considered further rehab hospital across the street. Job ID: [id number]
[2019-10-01] MEDS: Guaifenesin DM 100-10/5 ML UDCUP PO PRN ×2 (14:00→20:18)
[2019-10-01] MEDS: Melatonin 3 MG TAB PO PRN (20:21)
[2019-10-02] MEDS: Acetaminophen 325 MG TAB PO PRN (04:36)
[2019-10-02 05:31] LABS: #Eosinphils 0.1 thou/uL (0.0-0.7); #Monocytes 2.1 thou/uL (0.11-0.59); #Neutrophils 14.4 thou/uL (1.40-6.50); %Basophils 0.1 % (0.0-1.0); %Eosinophils 0.3 % (0.0-10.0); %Lymphocytes 15.3 % (21.0-51.0); %Monocytes 10.6 % (0.0-10.0); %Neutrophils 73.7 % (42.0-75.0); Hemoglobin 11.9 g/dL (12.0-16.0); Mean Corpuscular HGB CONC 33.3 g/dL (32.0-36.0); Mean Corpuscular Hemoglobin 32.7 pg (27.0-31.0); Mean Corpuscular Volume 97.9 fL (78.0-98.0); Mean Platelet Volume 8.2 fL (7.4-10.4); Platelet Count 258 thou/uL (130-400); RBC Distribution Width 11.9 % (11.5-14.5); Red Blood Cell (RBC) Count 3.65 mill/uL (4.20-5.40); White Blood Cell (WBC) Count 19.5 thou/uL (4.8-10.8)
[2019-10-02 05:44] LABS: Anion Gap 11 mmol/L (10-20); BUN (Urea Nitrogen) 21 mg/dL (9.8-20.1); Calc. Creatinine Clearance 102 mL/min (70-130); Calcium 8.6 mg/dL (7.8-10.44); Carbon Dioxide 27 mmol/L (23-31); Chloride 109 mmol/L (98-107); Estimated GFR-MDRD Greater than 90; Glucose 116 mg/dL (80-115); Magnesium 2.5 mg/dL (1.6-2.6); Potassium 3.5 mmol/L (3.5-5.1); Sodium 143 mmol/L (136-145)
--- NOTE | 2019-10-02 08:47 | PDOC.HOSPP ---
- Subjective Subjective: Sitting in the chair this AM. She was extubated on the 09/30/19. Continues to have a cough productive of sputum. No fever, chills, nausea, vomiting, cp, or SOB. She did wear BiPAP at night for dyspnea but has been wearing nasal cannula since. - Objective Vital Signs & Weight: Vital Signs (12 hours) Temp Pulse Pulse Ox 10/02/19 04:07 97 98 10/02/19 04:00 99.7 F H 10/02/19 00:00 98.3 F 100 10/01/19 22:28 121 H 95 10/01/19 22:17 88 L Weight Admit Weight 148 lb Weight 144 lb 9.972 oz Most Recent Monitor Data Heart Rate from ECG 104 NIBP 130/79 NIBP BP-Mean 96 Respiration from ECG 32 SpO2 95 I&O: 10/01/19 10/02/19 10/03/19 06:59 06:59 06:59 Intake Total 842.2 1795 30 Output Total 2315 880 65 Balance -1472.8 915 -35 Result Diagrams: 10/02/19 04:44 10/02/19 04:44 Hospitalist ROS - Review of Systems Constitutional: denies: fever, chills, sweats, weakness, malaise, other ENT: denies: ear pain, ear discharge, nose pain, nose discharge, nose congestion , mouth pain, mouth swelling, throat pain, throat swelling, other Respiratory: reports: cough, shortness of breath. denies: dry, hemoptysis, SOB with excertion, pleuritic pain, sputum, wheezing, other Cardiovascular: denies: chest pain, palpitations, orthopnea, paroxysmal noc. dyspnea, edema, light headedness, other Gastrointestinal: denies: nausea, vomiting, abdominal pain, diarrhea, constipation, melena, hematochezia, other - Medication Medications: Active Medications Generic Name Dose Route Start Last Admin Trade Name Freq PRN Reason Stop Dose Admin Acetaminophen 650 mg 09/21/19 06:29 10/02/19 04:36 Tylenol PO 650 mg Q4H PRN Administration Headache/Fever/Mild Pain (1-3) Artificial Tears 2 drop 09/21/19 07:37 09/25/19 14:22 Tears Naturale EA EYE 2 drop PRN PRN Administration Dry Eyes Aspirin 81 mg 09/21/19 09:00 10/01/19 08:19 Aspirin Chewable PO 81 mg DAILY KRISHNA Administration Enoxaparin Sodium 40 mg 09/21/19 09:00 10/01/19 08:19 Lovenox SC 40 mg 0900 KRISHNA Administration Guaifenesin/Dextromethorphan 15 ml 10/01/19 10:45 10/01/19 20:18 Robitussin Dm PO 15 ml Q4H PRN Administration Cough Melatonin 3 mg 10/01/19 00:39 10/01/19 20:21 Melatonin PO 3 mg HS PRN Administration Insomnia Methylprednisolone Sodium Succinate 40 mg 10/01/19 09:00 10/01/19 08:19 Solu-Medrol IVP 40 mg DAILY KRISHNA Administration Ondansetron HCl 4 mg 09/21/19 06:29 09/30/19 13:54 Zofran IVP 4 mg Q6H PRN Administration Nausea/Vomiting Pantoprazole Sodium 40 mg 09/26/19 09:00 10/01/19 08:19 Protonix IVP 40 mg DAILY KRISHNA Administration Phenol 0 ml 10/01/19 02:20 10/01/19 08:20 Chloraseptic [place] 180 Ml Bot PO 2 sprays BIDPRN PRN Administration Sore Throat Rosuvastatin Calcium 10 mg 09/21/19 09:00 10/01/19 08:19 Crestor PO 10 mg DAILY KRISHNA Administration Sodium Chloride 10 ml 09/21/19 21:00 10/01/19 20:16 Flush - Normal Saline IVF 10 ml Q12HR KRISHNA Administration Throat Lozenges 1 elroy 10/01/19 02:20 10/01/19 08:19 Cepastat Lozenges PO 1 elroy Q2H PRN Administration Sore Throat - Exam General Appearance: NAD, awake alert Eye: PERRL, anicteric sclera ENT: normocephalic atraumatic, no oropharyngeal lesions, moist mucosa Neck: supple, symmetric, no JVD, no thyromegaly, no lymphadenopathy, no carotid bruit Heart: RRR, no murmur, no gallops, no rubs, normal peripheral pulses Respiratory: no wheezes, no ronchi, normal chest expansion, no tachypnea, normal percussion Respiratory - other findings: on nasal cannula, rales ausculated in the left lower lobe Gastrointestinal: soft, non-tender, non-distended, normal bowel sounds, no palpable masses, no hepatomegaly, no splenomegaly, no bruit Extremities: no cyanosis, no clubbing, no edema Skin: normal turgor, no lesions, no rashes Neurological: cranial nerve grossly intact, normal sensation to touch, no weakness, no focal deficits, no new deficit Musculoskeletal: normal tone, normal strength, no muscle wasting Psychiatric: normal affect, normal behavior, A&O x 3 Hosp A/P (1) Acute respiratory failure with hypoxemia Code(s): J96.01 - ACUTE RESPIRATORY FAILURE WITH HYPOXIA Status: Acute (2) Adult respiratory distress syndrome Code(s): J80 - ACUTE RESPIRATORY DISTRESS SYNDROME Status: Acute (3) Pneumonia Code(s): J18.9 - PNEUMONIA, UNSPECIFIED ORGANISM Status: Acute Qualifiers: Pneumonia type: due to unspecified organism Laterality: bilateral Lung location: lower lobe of lung Qualified Code(s): J18.9 - Pneumonia, unspecified organism (4) Sepsis with acute hypoxic respiratory failure Code(s): A41.9 - SEPSIS, UNSPECIFIED ORGANISM; R65.20 - SEVERE SEPSIS WITHOUT SEPTIC SHOCK; J96.01 - ACUTE RESPIRATORY FAILURE WITH HYPOXIA Status: Acute Qualifiers: Sepsis type: sepsis due to unspecified organism Severe sepsis shock status : without septic shock Qualified Code(s): A41.9 - Sepsis, unspecified organism ; R65.20 - Severe sepsis without septic shock; J96.01 - Acute respiratory failure with hypoxia - Plan Continue to observe off abx, supportive care for secretion clearance. Chest physiotherapy, guafenisen, physical therapy, and incentive spirometry Continue nebulizers, further reccs per pulmonary Continue BiPAP PRN at night if she develops dyspnea, keep bed at 45 degrees Dispositon: Will likely need inpatient rehab. Consult placed on 10/01 to case management for rehab planning
[2019-10-02] MEDS: Saccharomyces boulardii 250 MG CAP PO SCH (09:08)
[2019-10-02] MEDS: Pantoprazole 40 MG VIAL IVP SCH (09:08)
[2019-10-02] MEDS: methylPREDNISolone Sod Succ 40 MG VIAL IVP SCH (09:08)
[2019-10-02] MEDS: Rosuvastatin 10 MG TAB PO SCH (09:08)
[2019-10-02] MEDS: Enoxaparin Sodium 40 MG/0.4 ML SYRINGE SC SCH (09:09)
[2019-10-02] MEDS: Aspirin Chewable 81 MG TAB PO SCH (09:10)
[2019-10-02] MEDS ORDERED: Metoprolol Tartrate 25 MG TAB PO SCH (13:30)
[2019-10-02] MEDS ORDERED: Furosemide 20 MG/2 ML VIAL SLOW IVP SCH ×2 (13:45→19:00)
[2019-10-02] MEDS ORDERED: Dextrose 5% in Water 1,000 ML IV SCH (13:45)
--- NOTE | 2019-10-02 14:00 | PRG ---
DATE OF SERVICE: 10/02/2019 SERVICE: Pulmonary Medicine. INTERVAL HISTORY: The patient actually extubated okay yesterday. She remains extraordinarily weak. Today, she was actually able to stand. After 5 minutes, she got significantly weak and had to sit down. That being said, she is now in a bedside chair. Denies any current chest discomfort, nausea, vomiting, fevers, or chills. Otherwise, there has been no change to her condition. Her heart rate remains elevated. Her white blood cell count also remains elevated, but is not significantly changing. PHYSICAL EXAMINATION: VITAL SIGNS: Afebrile, pulse 120, blood pressure 126/88, respirations 31, saturation 92%, currently on 4 L nasal cannula. GENERAL: The patient is awake and alert, in no apparent distress. LUNGS: Extensive crackling is still present. No prolonged expiratory phase or wheezing is appreciated. Rhonchi are noted. HEART: Normal rate and regular. ABDOMEN: Soft, nontender, nondistended. Bowel sounds are positive. MUSCULOSKELETAL: No cyanosis or clubbing. There is no pitting in the bilateral lower extremities, though she has 1 to 2+ pitting at the pelvic and the hips. NEUROLOGIC: Grossly nonfocal. LABORATORY DATA: Potassium 3.5. Phosphorus 2.0. Otherwise, basic metabolic profile is unremarkable. Her white blood cell count continues to hover around 19.5. Hemoglobin 11.9, and platelets 258,000. All stool studies are negative to date. ASSESSMENT: 1. Acute hypoxic respiratory failure, improving. 2. Community-acquired pneumonia, status post full course of antibiotic with Levaquin and meropenem. 3. Acute on chronic diastolic heart failure. 4. Mitral regurgitation. DISCUSSION AND PLAN: We will give her another dose of Lasix today and tomorrow morning. We will continue to diurese her down to euvolemia which she is quickly approaching. We will encourage mobility through time. I will watch for additional signs of sepsis. If present, panculture, empiric antibiotics will once again be initiated. I will put her on fluconazole 400 mg now and daily. My stop date will be on the 07 of October. Potassium and phosphorus will be replaced, and I will recheck those levels tomorrow morning. Ensure will be initiated. From my perspective, she is ready for transition out of the hospital. She will likely need rehabilitation facility or an LTAC. Job ID: [id number]
[2019-10-02] MEDS ORDERED: clonazePAM 0.5 MG TAB PO PRN (15:48)
[2019-10-02] MEDS ORDERED: Fluconazole 100 MG TAB PO SCH (16:15)
[2019-10-02] MEDS ORDERED: Potassium Chloride 20 MEQ TAB PO SCH (16:15)
[2019-10-02] MEDS ORDERED: Potassium Phosphate 30 MMOL in Sodium Chloride 0.9% 500 ML IVPB SCH (16:15)
[2019-10-02] MEDS: guaiFENesin 200 MG TAB PO SCH (20:40)
[2019-10-02] MEDS: Famotidine 20 MG TAB PO SCH (20:40)
[2019-10-02] MEDS: Melatonin 3 MG TAB PO PRN (20:40)
[2019-10-02] MEDS: Metoprolol Tartrate 25 MG TAB PO SCH (20:41)
[2019-10-02] MEDS ORDERED: Sodium Chloride 0.9% 250 ML IVPB SCH (23:15)
[2019-10-03 04:15] LABS: Anion Gap 12 mmol/L (10-20); BUN (Urea Nitrogen) 20 mg/dL (9.8-20.1); Calc. Creatinine Clearance 104 mL/min (70-130); Calcium 8.1 mg/dL (7.8-10.44); Carbon Dioxide 24 mmol/L (23-31); Chloride 107 mmol/L (98-107); Estimated GFR-MDRD Greater than 90; Glucose 122 mg/dL (80-115); Potassium 3.9 mmol/L (3.5-5.1); Sodium 139 mmol/L (136-145)
[2019-10-03 04:17] LABS: #Eosinphils 0.1 thou/uL (0.0-0.7); #Lymphocytes 3.1 thou/uL (1.20-3.40); #Monocytes 1.5 thou/uL (0.11-0.59); #Neutrophils 11.2 thou/uL (1.40-6.50); %Basophils 0.1 % (0.0-1.0); %Eosinophils 0.5 % (0.0-10.0); %Lymphocytes 19.4 % (21.0-51.0); %Monocytes 9.3 % (0.0-10.0); %Neutrophils 70.7 % (42.0-75.0); Hemoglobin 11.9 g/dL (12.0-16.0); Mean Corpuscular HGB CONC 33.4 g/dL (32.0-36.0); Mean Corpuscular Hemoglobin 31.9 pg (27.0-31.0); Mean Corpuscular Volume 95.7 fL (78.0-98.0); Mean Platelet Volume 8.4 fL (7.4-10.4); Platelet Count 234 thou/uL (130-400); Red Blood Cell (RBC) Count 3.72 mill/uL (4.20-5.40); White Blood Cell (WBC) Count 15.9 thou/uL (4.8-10.8)
[2019-10-03 04:18] LABS: Phosphorus 3.1 mg/dL (2.3-4.7)
[2019-10-03] MEDS ORDERED: Sodium Chloride 0.9% 250 ML IV SCH (05:45)
[2019-10-03] MEDS: Diphenoxylate HCl/Atropine Tablet PO PRN (05:48)
[2019-10-03] MEDS ORDERED: Furosemide 20 MG/2 ML VIAL SLOW IVP SCH (06:00)
[2019-10-03] MEDS: predniSONE 20 MG TAB PO SCH (08:14)
[2019-10-03] MEDS: Rosuvastatin 10 MG TAB PO SCH (08:55)
[2019-10-03] MEDS: Saccharomyces boulardii 250 MG CAP PO SCH (08:55)
[2019-10-03] MEDS: Aspirin Chewable 81 MG TAB PO SCH (08:55)
[2019-10-03] MEDS: Fluconazole 100 MG TAB PO SCH (08:56)
[2019-10-03] MEDS: guaiFENesin 200 MG TAB PO SCH ×2 (08:56→21:04)
[2019-10-03] MEDS: Famotidine 20 MG TAB PO SCH ×2 (08:56→21:04)
[2019-10-03] MEDS: Metoprolol Tartrate 25 MG TAB PO SCH (08:56)
[2019-10-03] MEDS: Enoxaparin Sodium 40 MG/0.4 ML SYRINGE SC SCH (08:57)
[2019-10-03] MEDS ORDERED: Gabapentin 300 MG CAP PO SCH (09:45)
--- NOTE | 2019-10-03 10:12 | PRG ---
DATE OF SERVICE: 10/03/2019 SERVICE: Pulmonary Medicine. INTERVAL HISTORY: The patient is doing okay from a respiratory standpoint as of this morning. She is having frequent episodes of low blood pressure. She actually got a total of 500 mL of bolus overnight. This improved the blood pressure with each bolus that she got. Urine outputs fallen off a little bit. Blood pressures have stabilized slightly. That being said, she started developing increasing respiratory difficulties as her blood pressure has improved. She denies having any chest discomfort, nausea, or vomiting. Otherwise, there has been no interval change to her condition. PHYSICAL EXAMINATION: VITAL SIGNS: Afebrile, pulse 98, blood pressure 135/87, respirations 37, saturation 92% on BiPAP. GENERAL: The patient is awake and alert. She is tachypneic, but not in any distress. HEENT: Normocephalic and atraumatic. Sclerae white. Conjunctivae pink. Oral mucosa is moist without lesions. LUNGS: Decent air entry. There are extensive crackling and rhonchi present. No prolonged expiratory phase or wheezing is appreciated. HEART: Normal rate. Regular. ABDOMEN: Soft, nontender, and nondistended. Bowel sounds are positive. MUSCULOSKELETAL: No cyanosis or clubbing. There is no pitting. NEUROLOGIC: Grossly nonfocal. LABORATORY DATA: WBC 15.9, hemoglobin 11.9, and platelets 234,000. Basic metabolic profile is completely unremarkable. Creatinine 0.58. Phosphorus is improved to 3.1, calcium 8.1. Stool culture is growing yeast species. ASSESSMENT: 1. Acute hypoxic respiratory failure. 2. Community-acquired pneumonia, status post full course of antibiotic with Levaquin and meropenem. 3. Acute on chronic diastolic heart failure. 4. Mitral regurgitation. 5. Yeast growing in the stool. DISCUSSION AND PLAN: The patient is doing fine from a respiratory standpoint. We have empirically initiated her on fluconazole. She will take a 5- to 7-day course of that in total. She will have a laboratory holiday tomorrow morning. D5 water will be interrupted. We will do what we can to prevent excessive hydration or diuretics. Diuretics will be interrupted. I will give her break from the metoprolol as her heart rate is under much better control today. Pulmonary/Critical Care will follow closely. Job ID: [id number]
[2019-10-03] MEDS: Gabapentin 300 MG CAP PO SCH ×2 (14:16→21:04)
--- NOTE | 2019-10-03 16:47 | PDOC.HOSPP ---
- Subjective Encounter Date: 10/03/19 Encounter Time: 12:00 Subjective: is on bipap this am is awake, follows verbal stimuli family at bedside is a bit weak but moves all extremities - Objective Vital Signs & Weight: Vital Signs (12 hours) Temp Pulse Pulse Ox 10/03/19 16:00 98.1 F 10/03/19 12:00 98.0 F 94 L 10/03/19 09:00 79 10/03/19 08:00 98.7 F 89 L Weight Admit Weight 148 lb Weight 143 lb 15.39 oz Most Recent Monitor Data Heart Rate from ECG 105 NIBP 125/71 NIBP BP-Mean 89 Respiration from ECG 30 SpO2 93 I&O: 10/02/19 10/03/19 10/04/19 06:59 06:59 06:59 Intake Total 1795 2123 829 Output Total 880 2520 215 Balance 915 -397 614 Result Diagrams: 10/03/19 03:17 10/03/19 03:17 Hospitalist ROS - Medication Medications: Active Medications Generic Name Dose Route Start Last Admin Trade Name Freq PRN Reason Stop Dose Admin Acetaminophen 650 mg 09/21/19 06:29 10/02/19 04:36 Tylenol PO 650 mg Q4H PRN Administration Headache/Fever/Mild Pain (1-3) Albuterol/Ipratropium 3 ml 10/01/19 22:09 10/02/19 19:31 Duoneb NEB 3 ml Q4H PRN Administration SOB &/or Wheezing Aspirin 81 mg 09/21/19 09:00 10/03/19 08:55 Aspirin Chewable PO 81 mg DAILY KRISHNA Administration Clonazepam 0.5 mg 10/02/19 15:48 10/02/19 15:56 Klonopin PO 0.5 mg Q6H PRN Administration Anxiety/Restlessness Diphenoxylate HCl/Atropine 1 tab 10/02/19 18:53 10/03/19 05:48 Lomotil PO 1 tab Q2H PRN Administration Diarrhea/Loose Stools Enoxaparin Sodium 40 mg 09/21/19 09:00 10/03/19 08:57 Lovenox SC 40 mg 0900 KRISHNA Administration Famotidine 20 mg 10/02/19 21:00 10/03/19 08:56 Pepcid PO 20 mg BID KRISHNA Administration Fluconazole 100 mg 10/03/19 09:00 10/03/19 08:56 Diflucan PO 100 mg DAILY KRISHNA Administration Gabapentin 300 mg 10/03/19 15:00 10/03/19 14:16 Neurontin PO 300 mg TID KRISHNA Administration Guaifenesin 200 mg 10/02/19 21:00 10/03/19 08:56 Organ-I Nr PO 200 mg BID KRISHNA Administration Dexmedetomidine HCl 200 mcg/ 50 mls @ 0 mls/hr 10/02/19 18:23 10/03/19 11:17 Sodium Chloride IVPB 50 mls INF PRN Administration AGITATION/ANXIETY/RESTLESSNESS Protocol Titrate Melatonin 3 mg 10/01/19 00:39 10/02/19 20:40 Melatonin PO 3 mg HS PRN Administration Insomnia Ondansetron HCl 4 mg 09/21/19 06:29 09/30/19 13:54 Zofran IVP 4 mg Q6H PRN Administration Nausea/Vomiting Phenol 0 ml 10/01/19 02:20 10/01/19 08:20 Chloraseptic [place] 180 Ml Bot PO 2 sprays BIDPRN PRN Administration Sore Throat Prednisone 20 mg 10/03/19 08:00 10/03/19 08:14 Prednisone PO 20 mg QAM-WM KRISHNA Administration Rosuvastatin Calcium 10 mg 09/21/19 09:00 10/03/19 08:55 Crestor PO 10 mg DAILY KRISHNA Administration Saccharomyces Boulardii 250 mg 10/02/19 09:00 10/03/19 08:55 Florastor PO 250 mg DAILY KRISHNA Administration Sodium Chloride 10 ml 09/21/19 21:00 10/03/19 08:58 Flush - Normal Saline IVF 10 ml Q12HR KRISHNA Administration Throat Lozenges 1 elroy 10/01/19 02:20 10/01/19 08:19 Cepastat Lozenges PO 1 elroy Q2H PRN Administration Sore Throat - Exam General Appearance: awake alert Eye: PERRL, anicteric sclera ENT: no oropharyngeal lesions, moist mucosa Neck: supple, no JVD Heart: RRR, no murmur Respiratory: no wheezes, no rales, rhonchi Gastrointestinal: soft, non-tender, non-distended, normal bowel sounds Extremities: no cyanosis, no edema Neurological: cranial nerve grossly intact, no focal deficits Psychiatric: normal affect, A&O x 3 Hosp A/P (1) Acute respiratory failure with hypoxemia Code(s): J96.01 - ACUTE RESPIRATORY FAILURE WITH HYPOXIA Status: Acute (2) Metabolic acidosis Code(s): E87.2 - ACIDOSIS Status: Resolved (3) Mitral insufficiency Status: Chronic Qualifiers: Cardiac valve disease etiology: nonrheumatic Qualified Code(s): I34.0 - Nonrheumatic mitral (valve) insufficiency (4) Pneumonia Code(s): J18.9 - PNEUMONIA, UNSPECIFIED ORGANISM Status: Acute Qualifiers: Pneumonia type: due to unspecified organism Laterality: bilateral Lung location: lower lobe of lung Qualified Code(s): J18.9 - Pneumonia, unspecified organism (5) Dyslipidemia Code(s): E78.5 - HYPERLIPIDEMIA, UNSPECIFIED Status: Chronic - Plan extubated on 09/30/2019, off and on bipap needs to work with PT and mobilize more/on bed exercises on fluconazole, finished levaquin and merrem course for pna and sepsis continue asp, crestor, nebs, prednisone has deconditioning, will likely need rehab/swing bed.
[2019-10-04] MEDS: Rosuvastatin 10 MG TAB PO SCH (08:22)
[2019-10-04] MEDS: Fluconazole 100 MG TAB PO SCH (08:22)
[2019-10-04] MEDS: Aspirin Chewable 81 MG TAB PO SCH (08:22)
[2019-10-04] MEDS: Saccharomyces boulardii 250 MG CAP PO SCH (08:22)
[2019-10-04] MEDS: guaiFENesin 200 MG TAB PO SCH ×2 (08:22→20:23)
[2019-10-04] MEDS: Gabapentin 300 MG CAP PO SCH ×3 (08:23→20:22)
[2019-10-04] MEDS: Famotidine 20 MG TAB PO SCH ×2 (08:23→20:21)
[2019-10-04] MEDS: Enoxaparin Sodium 40 MG/0.4 ML SYRINGE SC SCH (08:23)
[2019-10-04] MEDS: predniSONE 20 MG TAB PO SCH (08:23)
--- NOTE | 2019-10-04 10:42 | PRG ---
DATE OF SERVICE: 10/04/2019 SERVICE: Pulmonary Medicine. INTERVAL HISTORY: The patient is doing fine from respiratory standpoint. Breathing comfortably. No complaints of chest discomfort, nausea or vomiting. She is on high-flow nasal cannula and absolutely loves this device. She is on 45% FiO2. She is eating comfortably and talking, conversing well. Her Precedex is once again stopped this morning. Since then, her heart rate is crept up from the lower 90s , up to 115. PHYSICAL EXAMINATION: VITAL SIGNS: Afebrile currently. Her T-max overnight is 99.2. Pulse 101, blood pressure 96/64, respirations 32, and saturation 94%, currently on 45% FiO2 delivered via high-flow nasal cannula. GENERAL: The patient is awake and alert, in no apparent distress. LUNGS: Decent air entry. There is extensive crackling present. No prolonged expiratory phase or wheezing is appreciated. HEART: Normal rate, regular. ABDOMEN: Soft, nontender, and nondistended. Bowel sounds are positive. MUSCULOSKELETAL: No cyanosis or clubbing. No pitting in the bilateral lower extremities. NEUROLOGIC: Grossly nonfocal. LABORATORIES: Reviewed. ASSESSMENT: 1. Acute hypoxic respiratory failure. 2. Community-acquired pneumonia, status post full course of antibiotic with Levaquin and meropenem. 3. Acute on chronic diastolic heart failure. 4. Mitral regurgitation. 5. Yeast growing in the stool. DISCUSSION AND PLAN: We empirically put the patient on some antifungal medication, though I am doubtful this is going to have a significant impact on her presentation. We will continue to wean oxygen away as tolerated. She will continue using her personal CPAP device at night. If her heart rate goes up anymore, she will require the Precedex once again. She will need to stay in the ICU either way. I will repeat some laboratories tomorrow morning including basic metabolic profile, CBC , magnesium, and phosphorus. Rectal tube will need to be removed tomorrow. Job ID: [id number] [id number]
--- NOTE | 2019-10-04 17:54 | PDOC.HOSPP ---
- Subjective Encounter Date: 10/04/19 Encounter Time: 13:00 Subjective: is sitting in chair, family at bedside is drinking ensure cans well sob is better used bipap last night, is on nasal canula now - Objective Vital Signs & Weight: Vital Signs (12 hours) Temp Pulse Pulse BP BP Pulse Ox Pulse Ox 10/04/19 16:00 99.7 F H 10/04/19 14:03 117 H 113 H 134/99 H 153/96 H 97 10/04/19 13:15 98 10/04/19 12:00 98.9 F 10/04/19 10:33 96 10/04/19 08:00 99.2 F 97 10/04/19 07:21 96 Pulse Ox 10/04/19 16:00 10/04/19 14:03 97 10/04/19 13:15 10/04/19 12:00 10/04/19 10:33 10/04/19 08:00 10/04/19 07:21 Weight Admit Weight 148 lb Weight 147 lb 7.828 oz Most Recent Monitor Data Heart Rate from ECG 115 NIBP 141/84 NIBP BP-Mean 103 Respiration from ECG 37 SpO2 97 I&O: 10/03/19 10/04/19 10/05/19 06:59 06:59 06:59 Intake Total 2123 1525.3 600 Output Total 2520 845 1770 Balance -397 680.3 -1170 Result Diagrams: 10/03/19 03:17 10/03/19 03:17 Hospitalist ROS - Medication Medications: Active Medications Generic Name Dose Route Start Last Admin Trade Name Freq PRN Reason Stop Dose Admin Acetaminophen 650 mg 09/21/19 06:29 10/02/19 04:36 Tylenol PO 650 mg Q4H PRN Administration Headache/Fever/Mild Pain (1-3) Albuterol/Ipratropium 3 ml 10/01/19 22:09 10/02/19 19:31 Duoneb NEB 3 ml Q4H PRN Administration SOB &/or Wheezing Aspirin 81 mg 09/21/19 09:00 10/04/19 08:22 Aspirin Chewable PO 81 mg DAILY KRISHNA Administration Clonazepam 0.5 mg 10/02/19 15:48 10/02/19 15:56 Klonopin PO 0.5 mg Q6H PRN Administration Anxiety/Restlessness Diphenoxylate HCl/Atropine 1 tab 10/02/19 18:53 10/03/19 05:48 Lomotil PO 1 tab Q2H PRN Administration Diarrhea/Loose Stools Enoxaparin Sodium 40 mg 09/21/19 09:00 10/04/19 08:23 Lovenox SC 40 mg 0900 KRISHNA Administration Famotidine 20 mg 10/02/19 21:00 10/04/19 08:23 Pepcid PO 20 mg BID KRISHNA Administration Fluconazole 100 mg 10/03/19 09:00 10/04/19 08:22 Diflucan PO 10/08/19 09:01 100 mg DAILY KRISHNA Administration Gabapentin 300 mg 10/03/19 15:00 10/04/19 14:53 Neurontin PO 300 mg TID KRISHNA Administration Guaifenesin 200 mg 10/02/19 21:00 10/04/19 08:22 Organ-I Nr PO 200 mg BID KRISHNA Administration Dexmedetomidine HCl 200 mcg/ 50 mls @ 0 mls/hr 10/02/19 18:23 10/04/19 06:32 Sodium Chloride IVPB 50 mls INF PRN Administration AGITATION/ANXIETY/RESTLESSNESS Protocol Titrate Melatonin 3 mg 10/01/19 00:39 10/02/19 20:40 Melatonin PO 3 mg HS PRN Administration Insomnia Ondansetron HCl 4 mg 09/21/19 06:29 09/30/19 13:54 Zofran IVP 4 mg Q6H PRN Administration Nausea/Vomiting Phenol 0 ml 10/01/19 02:20 10/01/19 08:20 Chloraseptic [place] 180 Ml Bot PO 2 sprays BIDPRN PRN Administration Sore Throat Rosuvastatin Calcium 10 mg 09/21/19 09:00 10/04/19 08:22 Crestor PO 10 mg DAILY KRISHNA Administration Saccharomyces Boulardii 250 mg 10/02/19 09:00 10/04/19 08:22 Florastor PO 250 mg DAILY KRISHNA Administration Sodium Chloride 10 ml 09/21/19 21:00 10/04/19 08:23 Flush - Normal Saline IVF 10 ml Q12HR KRISHNA Administration Throat Lozenges 1 elroy 10/01/19 02:20 10/01/19 08:19 Cepastat Lozenges PO 1 elroy Q2H PRN Administration Sore Throat - Exam General Appearance: awake alert Eye: PERRL, anicteric sclera ENT: no oropharyngeal lesions, moist mucosa Neck: supple, no JVD Heart: RRR, no murmur Respiratory: no wheezes, no rales, rhonchi Gastrointestinal: soft, non-tender, non-distended, normal bowel sounds Extremities: no cyanosis, no edema Neurological: cranial nerve grossly intact, no focal deficits Hosp A/P (1) Acute respiratory failure with hypoxemia Code(s): J96.01 - ACUTE RESPIRATORY FAILURE WITH HYPOXIA Status: Acute (2) Metabolic acidosis Code(s): E87.2 - ACIDOSIS Status: Resolved (3) Mitral insufficiency Status: Chronic Qualifiers: Cardiac valve disease etiology: nonrheumatic Qualified Code(s): I34.0 - Nonrheumatic mitral (valve) insufficiency (4) Pneumonia Code(s): J18.9 - PNEUMONIA, UNSPECIFIED ORGANISM Status: Acute Qualifiers: Pneumonia type: due to unspecified organism Laterality: bilateral Lung location: lower lobe of lung Qualified Code(s): J18.9 - Pneumonia, unspecified organism (5) Dyslipidemia Code(s): E78.5 - HYPERLIPIDEMIA, UNSPECIFIED Status: Chronic - Plan extubated on 09/30/2019, off and on bipap needs to work with PT and mobilize more/on bed exercises on fluconazole, finished levaquin and merrem course for pna and sepsis continue asp, crestor, nebs, prednisone has deconditioning, will likely need rehab/swing bed. hemostable d/w patient and family at bedside
[2019-10-04] MEDS: clonazePAM 0.5 MG TAB PO SCH (20:21)
[2019-10-05 04:23] LABS: #Basophils 0.1 thou/uL (0.0-0.2); #Eosinphils 0.3 thou/uL (0.0-0.7); #Lymphocytes 4.1 thou/uL (1.20-3.40); #Monocytes 1.4 thou/uL (0.11-0.59); #Neutrophils 9.7 thou/uL (1.40-6.50); %Basophils 0.5 % (0.0-1.0); %Eosinophils 1.7 % (0.0-10.0); %Lymphocytes 26.1 % (21.0-51.0); %Monocytes 9.2 % (0.0-10.0); %Neutrophils 62.5 % (42.0-75.0); Hemoglobin 10.6 g/dL (12.0-16.0); Mean Corpuscular HGB CONC 32.9 g/dL (32.0-36.0); Mean Corpuscular Hemoglobin 31.6 pg (27.0-31.0); Mean Corpuscular Volume 96.2 fL (78.0-98.0); Mean Platelet Volume 8.1 fL (7.4-10.4); Platelet Count 264 thou/uL (130-400); RBC Distribution Width 11.8 % (11.5-14.5); Red Blood Cell (RBC) Count 3.36 mill/uL (4.20-5.40); White Blood Cell (WBC) Count 15.5 thou/uL (4.8-10.8)
[2019-10-05 04:44] LABS: Phosphorus 2.4 mg/dL (2.3-4.7)
[2019-10-05 04:47] LABS: Anion Gap 9 mmol/L (10-20); BUN (Urea Nitrogen) 15 mg/dL (9.8-20.1); Calc. Creatinine Clearance 106 mL/min (70-130); Calcium 8.3 mg/dL (7.8-10.44); Carbon Dioxide 26 mmol/L (23-31); Chloride 112 mmol/L (98-107); Estimated GFR-MDRD Greater than 90; Glucose 88 mg/dL (80-115); Potassium 3.3 mmol/L (3.5-5.1); Sodium 144 mmol/L (136-145)
[2019-10-05] MEDS: Fluconazole 100 MG TAB PO SCH (07:58)
[2019-10-05] MEDS: Rosuvastatin 10 MG TAB PO SCH (07:58)
[2019-10-05] MEDS: Famotidine 20 MG TAB PO SCH ×2 (07:59→20:45)
[2019-10-05] MEDS: Gabapentin 300 MG CAP PO SCH ×3 (07:59→20:44)
[2019-10-05] MEDS: Aspirin Chewable 81 MG TAB PO SCH (07:59)
[2019-10-05] MEDS: Saccharomyces boulardii 250 MG CAP PO SCH (07:59)
[2019-10-05] MEDS: Enoxaparin Sodium 40 MG/0.4 ML SYRINGE SC SCH (08:00)
[2019-10-05] MEDS ORDERED: predniSONE 20 MG TAB PO SCH (08:00)
[2019-10-05] MEDS: guaiFENesin 200 MG TAB PO SCH (08:00)
--- NOTE | 2019-10-05 12:30 | PDOC.HOSPP ---
- Subjective Encounter Date: 10/05/19 Encounter Time: 09:40 Subjective: is sitting in chair, no sob used her cpap last night still gets diarrhea when she tries to eat some foods at bedside - Objective Vital Signs & Weight: Vital Signs (12 hours) Temp Pulse Ox 10/05/19 08:19 98 10/05/19 08:00 98.5 F 94 L 10/05/19 04:00 97.8 F Weight Admit Weight 148 lb Weight 137 lb 2.04 oz Most Recent Monitor Data Heart Rate from ECG 118 NIBP 154/92 NIBP BP-Mean 112 Respiration from ECG 35 SpO2 100 I&O: 10/04/19 10/05/19 10/06/19 06:59 06:59 06:59 Intake Total 1525.3 1140 964 Output Total 845 3615 670 Balance 680.3 -7945 294 Result Diagrams: 10/05/19 03:47 10/05/19 03:47 Hospitalist ROS - Medication Medications: Active Medications Generic Name Dose Route Start Last Admin Trade Name Freq PRN Reason Stop Dose Admin Acetaminophen 650 mg 09/21/19 06:29 10/02/19 04:36 Tylenol PO 650 mg Q4H PRN Administration Headache/Fever/Mild Pain (1-3) Albuterol/Ipratropium 3 ml 10/01/19 22:09 10/02/19 19:31 Duoneb NEB 3 ml Q4H PRN Administration SOB &/or Wheezing Aspirin 81 mg 09/21/19 09:00 10/05/19 07:59 Aspirin Chewable PO 81 mg DAILY KRISHNA Administration Clonazepam 0.5 mg 10/02/19 15:48 10/02/19 15:56 Klonopin PO 0.5 mg Q6H PRN Administration Anxiety/Restlessness Clonazepam 0.5 mg 10/04/19 21:00 10/04/19 20:21 Klonopin PO 0.5 mg HS KRISHNA Administration Diphenoxylate HCl/Atropine 1 tab 10/02/19 18:53 10/03/19 05:48 Lomotil PO 1 tab Q2H PRN Administration Diarrhea/Loose Stools Enoxaparin Sodium 40 mg 09/21/19 09:00 10/05/19 08:00 Lovenox SC 40 mg 09 KRISHNA Administration Famotidine 20 mg 10/02/19 21:00 10/05/19 07:59 Pepcid PO 20 mg BID KRSIHNA Administration Fluconazole 100 mg 10/03/19 09:00 10/05/19 07:58 Diflucan PO 10/08/19 09:01 100 mg DAILY KRISHNA Administration Gabapentin 300 mg 10/03/19 15:00 10/05/19 07:59 Neurontin PO 300 mg TID KRISHNA Administration Guaifenesin 200 mg 10/02/19 21:00 10/05/19 08:00 Organ-I Nr PO 200 mg BID KRISHNA Administration Dexmedetomidine HCl 200 mcg/ 50 mls @ 0 mls/hr 10/02/19 18:23 10/04/19 06:32 Sodium Chloride IVPB 50 mls INF PRN Administration AGITATION/ANXIETY/RESTLESSNESS Protocol Titrate Melatonin 3 mg 10/01/19 00:39 10/02/19 20:40 Melatonin PO 3 mg HS PRN Administration Insomnia Ondansetron HCl 4 mg 09/21/19 06:29 09/30/19 13:54 Zofran IVP 4 mg Q6H PRN Administration Nausea/Vomiting Phenol 0 ml 10/01/19 02:20 10/01/19 08:20 Chloraseptic [place] 180 Ml Bot PO 2 sprays BIDPRN PRN Administration Sore Throat Prednisone 10 mg 10/05/19 08:00 10/05/19 07:59 Prednisone PO 10/09/19 08:01 10 mg QAM-WM KRISHNA Administration Rosuvastatin Calcium 10 mg 09/21/19 09:00 10/05/19 07:58 Crestor PO 10 mg DAILY KRISHNA Administration Saccharomyces Boulardii 250 mg 10/02/19 09:00 10/05/19 07:59 Florastor PO 250 mg DAILY KRISHNA Administration Sodium Chloride 10 ml 09/21/19 21:00 10/05/19 08:16 Flush - Normal Saline IVF 10 ml Q12HR KRISHNA Administration Throat Lozenges 1 elroy 10/01/19 02:20 10/01/19 08:19 Cepastat Lozenges PO 1 elroy Q2H PRN Administration Sore Throat - Exam General Appearance: awake alert Eye: PERRL, anicteric sclera ENT: no oropharyngeal lesions, moist mucosa Neck: supple, no JVD Heart: RRR, no murmur Respiratory: no wheezes, no rales, rhonchi Gastrointestinal: soft, non-tender, non-distended, normal bowel sounds Extremities: no cyanosis, no edema Neurological: cranial nerve grossly intact, no focal deficits Psychiatric: normal affect, A&O x 3 Hosp A/P (1) Acute respiratory failure with hypoxemia Code(s): J96.01 - ACUTE RESPIRATORY FAILURE WITH HYPOXIA Status: Acute (2) Metabolic acidosis Code(s): E87.2 - ACIDOSIS Status: Resolved (3) Mitral insufficiency Status: Chronic Qualifiers: Cardiac valve disease etiology: nonrheumatic Qualified Code(s): I34.0 - Nonrheumatic mitral (valve) insufficiency (4) Pneumonia Code(s): J18.9 - PNEUMONIA, UNSPECIFIED ORGANISM Status: Acute Qualifiers: Pneumonia type: due to unspecified organism Laterality: bilateral Lung location: lower lobe of lung Qualified Code(s): J18.9 - Pneumonia, unspecified organism (5) Dyslipidemia Code(s): E78.5 - HYPERLIPIDEMIA, UNSPECIFIED Status: Chronic - Plan extubated on 09/30/2019, off bipap, now on home cpap at night needs to work with PT and mobilize more on fluconazole, finished levaquin and merrem course for pna and sepsis continue asp, crestor, nebs, prednisone has deconditioning, will likely need rehab/swing bed. hemostable d/w patient and family at bedside may tx to med floor if ok with pulm
[2019-10-05] MEDS: Potassium Chloride 20 MEQ TAB PO SCH ×2 (14:12→18:58)
[2019-10-05] MEDS ORDERED: Metoprolol Tartrate 25 MG TAB PO SCH (14:15)
--- NOTE | 2019-10-05 14:49 | PRG ---
DATE OF SERVICE: 10/05/2019 SERVICE: Pulmonary Medicine. INTERVAL HISTORY: The patient is doing great from respiratory standpoint. She is actually weaned off the high-flow nasal cannula 3 L nasal cannula. She wore CPAP all night last night. She still has a little bit of a tachycardia. Otherwise, there has been absolutely no interval change to her condition. PHYSICAL EXAMINATION: VITAL SIGNS: Afebrile, pulse is 115, blood pressure 127/91, respirations 32, saturation 98%, currently on 3 L nasal cannula. GENERAL: The patient is awake and alert, in no apparent distress. LUNGS: Wonderful air entry. Dependent crackles persist. No prolonged expiratory phase or wheezing is appreciated. HEART: Normal rate, regular. ABDOMEN: Soft, nontender, nondistended. Bowel sounds are positive. MUSCULOSKELETAL: No cyanosis or clubbing. There is no pitting in the bilateral lower extremities. NEUROLOGIC: Grossly nonfocal. LABORATORY DATA: WBC 15.5, hemoglobin 10.6, and platelets 264,000. Potassium 3.3. Basic metabolic profile is otherwise unremarkable. Magnesium 2.0, phosphorus 2.4. ASSESSMENT: 1. Acute hypoxic respiratory failure, improving. 2. Community-acquired pneumonia, status post full course of antibiotic with Levaquin and meropenem, currently on empiric coverage with antifungal medication. 3. Acute on chronic diastolic heart failure. 4. Mitral regurgitation. 5. Yeast growing in stool. DISCUSSION AND PLAN: We will continue empiric therapy. We will try to keep her at euvolemia. We will continue mobilizing her as tolerated. Pulmonary/Critical Care will continue to follow along while she remains in-house. Rectal tube has been removed. Diaz catheter to be removed today. She can be transitioned to the [facility]. Job ID: [id number]
[2019-10-05] MEDS: Metoprolol Tartrate 25 MG TAB PO SCH (20:44)
[2019-10-05] MEDS: clonazePAM 0.5 MG TAB PO SCH (20:45)
[2019-10-06] MEDS: Diphenoxylate HCl/Atropine Tablet PO PRN (01:05)
[2019-10-06] MEDS: Famotidine 20 MG TAB PO SCH ×2 (09:37→19:49)
[2019-10-06] MEDS: Gabapentin 300 MG CAP PO SCH ×3 (09:37→19:49)
[2019-10-06] MEDS: Saccharomyces boulardii 250 MG CAP PO SCH (09:37)
[2019-10-06] MEDS: Aspirin Chewable 81 MG TAB PO SCH (09:37)
[2019-10-06] MEDS: Fluconazole 100 MG TAB PO SCH (09:38)
[2019-10-06] MEDS: Metoprolol Tartrate 25 MG TAB PO SCH ×2 (09:38→19:49)
[2019-10-06] MEDS: Rosuvastatin 10 MG TAB PO SCH (09:38)
[2019-10-06] MEDS: Enoxaparin Sodium 40 MG/0.4 ML SYRINGE SC SCH (09:39)
--- NOTE | 2019-10-06 15:42 | PDOC.HOSPP ---
- Subjective Encounter Date: 10/06/19 Encounter Time: 11:00 Subjective: Pt seen for followup re: acute hypoxic respiratory failure. feels better. Has soft stools. - Objective Vital Signs & Weight: Vital Signs (12 hours) Temp Pulse Ox 10/06/19 11:10 98.7 F 10/06/19 07:27 98 10/06/19 07:10 97.6 F 10/06/19 05:09 97.6 F Weight Admit Weight 148 lb Weight 138 lb 11.2 oz Most Recent Monitor Data Heart Rate from ECG 110 NIBP 77/40 NIBP BP-Mean 52 Respiration from ECG 29 SpO2 95 I&O: 10/05/19 10/06/19 10/07/19 06:59 06:59 06:59 Intake Total 1140 1744 Output Total 3615 1090 Balance -9915 654 Result Diagrams: 10/05/19 03:47 10/05/19 03:47 Additional Labs: labs and MARs reviewed by me EKG Reviewed by me: Yes (Tele: sinus tachycardia) Hospitalist ROS - Review of Systems Respiratory: denies: cough, shortness of breath, SOB with excertion, pleuritic pain, wheezing Cardiovascular: denies: chest pain, palpitations, orthopnea, paroxysmal noc. dyspnea, edema, light headedness - Medication Medications: Active Medications Generic Name Dose Route Start Last Admin Trade Name Freq PRN Reason Stop Dose Admin Acetaminophen 650 mg 09/21/19 06:29 10/02/19 04:36 Tylenol PO 650 mg Q4H PRN Administration Headache/Fever/Mild Pain (1-3) Albuterol/Ipratropium 3 ml 10/01/19 22:09 10/02/19 19:31 Duoneb NEB 3 ml Q4H PRN Administration SOB &/or Wheezing Aspirin 81 mg 09/21/19 09:00 10/06/19 09:37 Aspirin Chewable PO 81 mg DAILY KRISHNA Administration Clonazepam 0.5 mg 10/02/19 15:48 10/02/19 15:56 Klonopin PO 0.5 mg Q6H PRN Administration Anxiety/Restlessness Clonazepam 0.5 mg 10/04/19 21:00 10/05/19 20:45 Klonopin PO 0.5 mg HS KRISHNA Administration Diphenoxylate HCl/Atropine 1 tab 10/02/19 18:53 10/06/19 01:05 Lomotil PO 1 tab Q2H PRN Administration Diarrhea/Loose Stools Enoxaparin Sodium 40 mg 09/21/19 09:00 10/06/19 09:39 Lovenox SC 40 mg 0900 KRISHNA Administration Famotidine 20 mg 10/02/19 21:00 10/06/19 09:37 Pepcid PO 20 mg BID KRISHNA Administration Fluconazole 100 mg 10/03/19 09:00 10/06/19 09:38 Diflucan PO 10/08/19 09:01 100 mg DAILY KRISHNA Administration Gabapentin 300 mg 10/03/19 15:00 10/06/19 15:07 Neurontin PO 300 mg TID KRISHNA Administration Melatonin 3 mg 10/01/19 00:39 10/02/19 20:40 Melatonin PO 3 mg HS PRN Administration Insomnia Metoprolol Tartrate 6.25 mg 10/05/19 21:00 10/06/19 09:38 Lopressor PO 6.25 mg BID KRISHNA Administration Ondansetron HCl 4 mg 09/21/19 06:29 09/30/19 13:54 Zofran IVP 4 mg Q6H PRN Administration Nausea/Vomiting Phenol 0 ml 10/01/19 02:20 10/01/19 08:20 Chloraseptic [place] 180 Ml Bot PO 2 sprays BIDPRN PRN Administration Sore Throat Rosuvastatin Calcium 10 mg 09/21/19 09:00 10/06/19 09:38 Crestor PO 10 mg DAILY KRISHNA Administration Saccharomyces Boulardii 250 mg 10/02/19 09:00 10/06/19 09:37 Florastor PO 250 mg DAILY KRISHNA Administration Sodium Chloride 10 ml 09/21/19 21:00 10/06/19 09:40 Flush - Normal Saline IVF 10 ml Q12HR KRISHNA Administration Throat Lozenges 1 elroy 10/01/19 02:20 10/01/19 08:19 Cepastat Lozenges PO 1 elroy Q2H PRN Administration Sore Throat - Exam General Appearance: NAD Eye: anicteric sclera ENT: moist mucosa Neck: supple Heart: RRR Respiratory: CTAB Gastrointestinal: soft, non-tender Extremities: no clubbing Neurological: no weakness Psychiatric: normal affect, normal behavior Hosp A/P - Plan Hosp A/P (1) Acute respiratory failure with hypoxemia Code(s): J96.01 - ACUTE RESPIRATORY FAILURE WITH HYPOXIA Status: Acute (2) Pneumonia Code(s): J18.9 - PNEUMONIA, UNSPECIFIED ORGANISM Status: Acute Qualifiers: Pneumonia type: due to unspecified organism Laterality: bilateral Lung location: lower lobe of lung Qualified Code(s): J18.9 - Pneumonia, unspecified organism (3) Mitral insufficiency Status: Chronic Qualifiers: Cardiac valve disease etiology: nonrheumatic Qualified Code(s): I34.0 - Nonrheumatic mitral (valve) insufficiency (4) Dyslipidemia Code(s): E78.5 - HYPERLIPIDEMIA, UNSPECIFIED Status: Chronic - Plan needs to work with PT and mobilize more Continue fluconazole Continue aspirin, crestor, nebs, prednisone PT/OT for physical deconditioning
--- NOTE | 2019-10-06 17:05 | PRG ---
DATE OF SERVICE: 10/06/2019 SERVICE: Pulmonary Medicine. INTERVAL HISTORY: The patient is doing outstanding from respiratory standpoint. Breathing comfortably. Her diarrhea has resolved. She has no complaints of chest discomfort, nausea, or vomiting. She still feels a little bit winded when she walks around, but her strength is improving day by day, and this seems to be improving as well. She has been weaned down to 2.5 L nasal cannula. PHYSICAL EXAMINATION: GENERAL: The patient is awake and alert, in no apparent distress. LUNGS: Very good air entry. Dependent crackles are improving now. No prolonged expiratory phase or wheezing is appreciated. HEART: Normal rate and regular. ABDOMEN: Soft, nontender, nondistended. Bowel sounds are positive. MUSCULOSKELETAL: No cyanosis or clubbing. No pitting in the bilateral lower extremities. NEUROLOGIC: Grossly nonfocal. ASSESSMENT: 1. Acute hypoxic respiratory failure, improving. 2. Community-acquired pneumonia, status post full course of antibiotic with Levaquin and meropenem, currently on empiric coverage with antifungal medication. 3. Acute on chronic diastolic heart failure. 4. Mitral regurgitation. 5. Yeast, growing still. DISCUSSION AND PLAN: We will continue our empiric antifungal coverage, as this has seemed to make a meaningful impact on her presentation. I will repeat some laboratories tomorrow morning. I will repeat a chest x-ray, CBC, and electrolytes tomorrow morning. From my perspective, she can be transitioned to the floor. Job ID: [id number]
[2019-10-06] MEDS: clonazePAM 0.5 MG TAB PO SCH (19:49)
[2019-10-07 04:10] LABS: #Basophils 0.1 thou/uL (0.0-0.2); #Eosinphils 0.7 thou/uL (0.0-0.7); #Lymphocytes 3.5 thou/uL (1.20-3.40); #Monocytes 0.9 thou/uL (0.11-0.59); #Neutrophils 5.8 thou/uL (1.40-6.50); %Eosinophils 6.5 % (0.0-10.0); %Lymphocytes 31.5 % (21.0-51.0); %Monocytes 8.2 % (0.0-10.0); %Neutrophils 52.8 % (42.0-75.0); Hemoglobin 10.6 g/dL (12.0-16.0); Mean Corpuscular HGB CONC 32.9 g/dL (32.0-36.0); Mean Corpuscular Hemoglobin 31.8 pg (27.0-31.0); Mean Corpuscular Volume 96.5 fL (78.0-98.0); Mean Platelet Volume 8.3 fL (7.4-10.4); Platelet Count 261 thou/uL (130-400); RBC Distribution Width 11.9 % (11.5-14.5); Red Blood Cell (RBC) Count 3.32 mill/uL (4.20-5.40)
[2019-10-07 04:32] LABS: Anion Gap 10 mmol/L (10-20); BUN (Urea Nitrogen) 15 mg/dL (9.8-20.1); Calc. Creatinine Clearance 91 mL/min (70-130); Calcium 8.5 mg/dL (7.8-10.44); Carbon Dioxide 27 mmol/L (23-31); Chloride 109 mmol/L (98-107); Estimated GFR-MDRD Greater than 90; Glucose 94 mg/dL (80-115); Potassium 3.9 mmol/L (3.5-5.1); Sodium 142 mmol/L (136-145)
[2019-10-07] MEDS: Enoxaparin Sodium 40 MG/0.4 ML SYRINGE SC SCH (08:48)
[2019-10-07] MEDS: Famotidine 20 MG TAB PO SCH ×2 (08:49→21:04)
[2019-10-07] MEDS: Fluconazole 100 MG TAB PO SCH (08:49)
[2019-10-07] MEDS: Gabapentin 300 MG CAP PO SCH ×3 (08:49→21:04)
[2019-10-07] MEDS: Rosuvastatin 10 MG TAB PO SCH (08:49)
[2019-10-07] MEDS: Saccharomyces boulardii 250 MG CAP PO SCH (08:49)
[2019-10-07] MEDS: Metoprolol Tartrate 25 MG TAB PO SCH ×2 (08:50→21:05)
[2019-10-07] MEDS: Aspirin Chewable 81 MG TAB PO SCH (08:56)
[2019-10-07] MEDS: predniSONE 20 MG TAB PO SCH (08:56)
--- NOTE | 2019-10-07 10:39 | RAD ---
XR Chest Pa Lat STANDARD History: Evaluate infiltrate Comparison: Radiograph 09/30/2019 Findings: Bilateral perihilar and upper lobe airspace opacities. No pneumothorax. Trace right pleural fluid. Impression: Perihilar airspace opacities suggesting atypical pneumonia, viral infectious process, or eosinophilic pneumonia.
--- NOTE | 2019-10-07 10:40 | PDOC.HOSPP ---
- Subjective Encounter Date: 10/07/19 Encounter Time: 07:45 Subjective: is sitting in chair, no sob, on nasal oxygen at bedside - Objective Vital Signs & Weight: Vital Signs (12 hours) Temp Resp Pulse Ox 10/07/19 07:49 95 10/07/19 07:11 98.5 F 10/07/19 04:00 98.3 F 20 10/07/19 00:00 97.9 F Weight Admit Weight 148 lb Weight 138 lb 11.2 oz Most Recent Monitor Data Heart Rate from ECG 102 NIBP 108/79 NIBP BP-Mean 88 Respiration from ECG 32 SpO2 94 I&O: 10/06/19 10/07/19 10/08/19 06:59 06:59 06:59 Intake Total 1744 700 Output Total 1090 875 Balance 654 -175 Result Diagrams: 10/07/19 03:50 10/07/19 03:50 Hospitalist ROS - Medication Medications: Active Medications Generic Name Dose Route Start Last Admin Trade Name Freq PRN Reason Stop Dose Admin Acetaminophen 650 mg 09/21/19 06:29 10/02/19 04:36 Tylenol PO 650 mg Q4H PRN Administration Headache/Fever/Mild Pain (1-3) Albuterol/Ipratropium 3 ml 10/01/19 22:09 10/02/19 19:31 Duoneb NEB 3 ml Q4H PRN Administration SOB &/or Wheezing Aspirin 81 mg 09/21/19 09:00 10/07/19 08:56 Aspirin Chewable PO 81 mg DAILY KRISHNA Administration Clonazepam 0.5 mg 10/02/19 15:48 10/02/19 15:56 Klonopin PO 0.5 mg Q6H PRN Administration Anxiety/Restlessness Clonazepam 0.5 mg 10/04/19 21:00 10/06/19 19:49 Klonopin PO 0.5 mg HS KRISHNA Administration Diphenoxylate HCl/Atropine 1 tab 10/02/19 18:53 10/06/19 01:05 Lomotil PO 1 tab Q2H PRN Administration Diarrhea/Loose Stools Enoxaparin Sodium 40 mg 09/21/19 09:00 10/07/19 08:48 Lovenox SC 40 mg 0900 KRISHNA Administration Famotidine 20 mg 10/02/19 21:00 10/07/19 08:49 Pepcid PO 20 mg BID KRISHNA Administration Fluconazole 100 mg 10/03/19 09:00 10/07/19 08:49 Diflucan PO 10/08/19 09:01 100 mg DAILY KRISHNA Administration Gabapentin 300 mg 10/03/19 15:00 10/07/19 08:49 Neurontin PO 300 mg TID KRISHNA Administration Melatonin 3 mg 10/01/19 00:39 10/02/19 20:40 Melatonin PO 3 mg HS PRN Administration Insomnia Metoprolol Tartrate 6.25 mg 10/05/19 21:00 10/07/19 08:50 Lopressor PO 6.25 mg BID KRISHNA Administration Ondansetron HCl 4 mg 09/21/19 06:29 09/30/19 13:54 Zofran IVP 4 mg Q6H PRN Administration Nausea/Vomiting Phenol 0 ml 10/01/19 02:20 10/01/19 08:20 Chloraseptic [place] 180 Ml Bot PO 2 sprays BIDPRN PRN Administration Sore Throat Prednisone 10 mg 10/07/19 09:00 10/07/19 08:56 Prednisone PO 10/11/19 09:01 10 mg Q2D@0900 KRISHNA Administration Rosuvastatin Calcium 10 mg 09/21/19 09:00 10/07/19 08:49 Crestor PO 10 mg DAILY KRISHNA Administration Saccharomyces Boulardii 250 mg 10/02/19 09:00 10/07/19 08:49 Florastor PO 250 mg DAILY KRISHNA Administration Sodium Chloride 10 ml 09/21/19 21:00 10/06/19 19:49 Flush - Normal Saline IVF 10 ml Q12HR KRISHNA Administration Throat Lozenges 1 elroy 10/01/19 02:20 10/01/19 08:19 Cepastat Lozenges PO 1 elroy Q2H PRN Administration Sore Throat - Exam General Appearance: awake alert Eye: PERRL, anicteric sclera ENT: no oropharyngeal lesions, moist mucosa Neck: supple, no JVD Heart: RRR, no murmur Respiratory: no wheezes, no rales, rhonchi Gastrointestinal: soft, non-tender, non-distended, normal bowel sounds Extremities: no cyanosis, no edema Neurological: cranial nerve grossly intact, no focal deficits Psychiatric: normal affect, A&O x 3 Hosp A/P (1) Acute respiratory failure with hypoxemia Code(s): J96.01 - ACUTE RESPIRATORY FAILURE WITH HYPOXIA Status: Acute (2) Metabolic acidosis Code(s): E87.2 - ACIDOSIS Status: Resolved (3) Mitral insufficiency Status: Suspected Qualifiers: Cardiac valve disease etiology: nonrheumatic Qualified Code(s): I34.0 - Nonrheumatic mitral (valve) insufficiency (4) Pneumonia Code(s): J18.9 - PNEUMONIA, UNSPECIFIED ORGANISM Status: Acute Qualifiers: Pneumonia type: due to unspecified organism Laterality: bilateral Lung location: lower lobe of lung Qualified Code(s): J18.9 - Pneumonia, unspecified organism (5) Dyslipidemia Code(s): E78.5 - HYPERLIPIDEMIA, UNSPECIFIED Status: Chronic - Plan extubated on 09/30/2019, off bipap, now on home cpap at night and nasal canula oxygen during day needs to work with PT and mobilize more on fluconazole, finished levaquin and merrem course for pna and sepsis continue asp, crestor, nebs, prednisone has deconditioning, will likely need rehab/swing bed. hemostable d/w patient and family at bedside
[2019-10-07] MEDS: clonazePAM 0.5 MG TAB PO SCH (21:04)
[2019-10-08 05:23] VITALS: BMI 26.4
[2019-10-08 07:38] LABS: #Basophils 0.1 thou/uL (0.0-0.2); #Eosinphils 0.5 thou/uL (0.0-0.7); #Lymphocytes 3.6 thou/uL (1.20-3.40); #Neutrophils 5.6 thou/uL (1.40-6.50); %Basophils 0.8 % (0.0-1.0); %Eosinophils 4.6 % (0.0-10.0); %Lymphocytes 33.1 % (21.0-51.0); %Monocytes 9.1 % (0.0-10.0); %Neutrophils 52.4 % (42.0-75.0); Hemoglobin 11.1 g/dL (12.0-16.0); Mean Corpuscular HGB CONC 33.7 g/dL (32.0-36.0); Mean Corpuscular Hemoglobin 32.6 pg (27.0-31.0); Mean Corpuscular Volume 96.9 fL (78.0-98.0); Mean Platelet Volume 7.5 fL (7.4-10.4); Platelet Count 307 thou/uL (130-400); RBC Distribution Width 11.8 % (11.5-14.5); White Blood Cell (WBC) Count 10.8 thou/uL (4.8-10.8)
[2019-10-08 07:53] LABS: Anion Gap 14 mmol/L (10-20); BUN (Urea Nitrogen) 14 mg/dL (9.8-20.1); Calc. Creatinine Clearance 87 mL/min (70-130); Calcium 8.7 mg/dL (7.8-10.44); Carbon Dioxide 26 mmol/L (23-31); Chloride 106 mmol/L (98-107); Estimated GFR-MDRD 89; Glucose 137 mg/dL (80-115); Sodium 142 mmol/L (136-145)
[2019-10-08] MEDS: Aspirin Chewable 81 MG TAB PO SCH (08:21)
[2019-10-08] MEDS: Enoxaparin Sodium 40 MG/0.4 ML SYRINGE SC SCH (08:21)
[2019-10-08] MEDS: Fluconazole 100 MG TAB PO SCH (08:22)
[2019-10-08] MEDS: Rosuvastatin 10 MG TAB PO SCH (08:22)
[2019-10-08] MEDS: Gabapentin 300 MG CAP PO SCH ×3 (08:22→20:34)
[2019-10-08] MEDS: Famotidine 20 MG TAB PO SCH ×2 (08:22→20:34)
[2019-10-08] MEDS: Metoprolol Tartrate 25 MG TAB PO SCH ×2 (08:22→20:34)
[2019-10-08] MEDS: Saccharomyces boulardii 250 MG CAP PO SCH (08:23)
--- NOTE | 2019-10-08 11:14 | PDOC.HOSPP ---
- Subjective Encounter Date: 10/08/19 Encounter Time: 08:45 Subjective: breathing better, is eating better as well no sob, is beginning to amb with PT at bedside - Objective Vital Signs & Weight: Vital Signs (12 hours) Temp Pulse Resp BP BP Pulse Ox 10/08/19 07:35 98.0 F 102 H 16 104/75 99 10/08/19 03:17 97.5 F L 86 20 102/65 95 10/08/19 00:00 97.2 F L 97 18 104/61 94 L Weight Admit Weight 148 lb Weight 140 lb Most Recent Monitor Data Heart Rate from ECG 100 NIBP 135/89 NIBP BP-Mean 104 Respiration from ECG 26 SpO2 96 I&O: 10/07/19 10/08/19 10/09/19 06:59 06:59 06:59 Intake Total 700 1580 Output Total 875 450 Balance -175 1130 Result Diagrams: 10/08/19 07:21 10/08/19 07:21 Hospitalist ROS - Medication Medications: Active Medications Generic Name Dose Route Start Last Admin Trade Name Freq PRN Reason Stop Dose Admin Acetaminophen 650 mg 09/21/19 06:29 10/02/19 04:36 Tylenol PO 650 mg Q4H PRN Administration Headache/Fever/Mild Pain (1-3) Albuterol/Ipratropium 3 ml 10/01/19 22:09 10/02/19 19:31 Duoneb NEB 3 ml Q4H PRN Administration SOB &/or Wheezing Aspirin 81 mg 09/21/19 09:00 10/08/19 08:21 Aspirin Chewable PO 81 mg DAILY KRISHNA Administration Clonazepam 0.5 mg 10/02/19 15:48 10/02/19 15:56 Klonopin PO 0.5 mg Q6H PRN Administration Anxiety/Restlessness Clonazepam 0.5 mg 10/04/19 21:00 10/07/19 21:04 Klonopin PO 0.5 mg HS KRISHNA Administration Diphenoxylate HCl/Atropine 1 tab 10/02/19 18:53 10/06/19 01:05 Lomotil PO 1 tab Q2H PRN Administration Diarrhea/Loose Stools Enoxaparin Sodium 40 mg 09/21/19 09:00 10/08/19 08:21 Lovenox SC 40 mg 0900 KRISHNA Administration Famotidine 20 mg 10/02/19 21:00 10/08/19 08:22 Pepcid PO 20 mg BID KRISHNA Administration Gabapentin 300 mg 10/03/19 15:00 10/08/19 08:22 Neurontin PO 300 mg TID KRISHNA Administration Melatonin 3 mg 10/01/19 00:39 10/02/19 20:40 Melatonin PO 3 mg HS PRN Administration Insomnia Metoprolol Tartrate 6.25 mg 10/05/19 21:00 10/08/19 08:22 Lopressor PO 6.25 mg BID KRISHNA Administration Ondansetron HCl 4 mg 09/21/19 06:29 09/30/19 13:54 Zofran IVP 4 mg Q6H PRN Administration Nausea/Vomiting Phenol 0 ml 10/01/19 02:20 10/01/19 08:20 Chloraseptic [place] 180 Ml Bot PO 2 sprays BIDPRN PRN Administration Sore Throat Prednisone 10 mg 10/07/19 09:00 10/07/19 08:56 Prednisone PO 10/11/19 09:01 10 mg Q2D@0900 KRISHNA Administration Rosuvastatin Calcium 10 mg 09/21/19 09:00 10/08/19 08:22 Crestor PO 10 mg DAILY KRISHNA Administration Saccharomyces Boulardii 250 mg 10/02/19 09:00 10/08/19 08:23 Florastor PO 250 mg DAILY KRISHNA Administration Sodium Chloride 10 ml 09/21/19 21:00 10/07/19 21:05 Flush - Normal Saline IVF 10 ml Q12HR KRISHNA Administration Throat Lozenges 1 elroy 10/01/19 02:20 10/01/19 08:19 Cepastat Lozenges PO 1 elroy Q2H PRN Administration Sore Throat - Exam General Appearance: awake alert Eye: PERRL, anicteric sclera ENT: no oropharyngeal lesions, moist mucosa Neck: supple, no JVD Heart: RRR, no murmur Respiratory: no wheezes, no rales, rhonchi Gastrointestinal: soft, non-tender, non-distended, normal bowel sounds Extremities: no cyanosis, no edema Neurological: cranial nerve grossly intact, no focal deficits Psychiatric: normal affect, A&O x 3 Hosp A/P (1) Acute respiratory failure with hypoxemia Code(s): J96.01 - ACUTE RESPIRATORY FAILURE WITH HYPOXIA Status: Resolved (2) Metabolic acidosis Code(s): E87.2 - ACIDOSIS Status: Resolved (3) Mitral insufficiency Status: Suspected Qualifiers: Cardiac valve disease etiology: nonrheumatic Qualified Code(s): I34.0 - Nonrheumatic mitral (valve) insufficiency (4) Pneumonia Code(s): J18.9 - PNEUMONIA, UNSPECIFIED ORGANISM Status: Resolved Qualifiers: Pneumonia type: due to unspecified organism Laterality: bilateral Lung location: lower lobe of lung Qualified Code(s): J18.9 - Pneumonia, unspecified organism (5) Dyslipidemia Code(s): E78.5 - HYPERLIPIDEMIA, UNSPECIFIED Status: Chronic (6) Physical deconditioning Code(s): R53.81 - OTHER MALAISE Status: Acute - Plan extubated on 09/30/2019, off bipap, now on home cpap at night and nasal canula oxygen during day needs to work with PT and mobilize more finished full course fluconazole, finished levaquin and merrem course for pna and sepsis continue asp, crestor, nebs, prednisone q2d x 4 doses and dc has deconditioning, will likely need rehab/swing bed. hemostable d/w patient and family at bedside may dc anytime if rehab accepts her.
--- NOTE | 2019-10-08 20:07 | PRG ---
DATE OF SERVICE: 10/08/2019 SUBJECTIVE: Sindi Morley says she is ready to go home. She wants to get out of rehab and get back to work. She has no complaints. OBJECTIVE: VITAL SIGNS: Vital signs are doing well. She is afebrile. Heart rate is 93, respiratory rate 16, oximetry 97% on 2 L earlier today, and blood pressure 109/72. LUNGS: Clear. HEART: Regular rhythm. ABDOMEN: Soft. EXTREMITIES: Without edema. IMAGING: Chest x-ray shows bilateral perihilar infiltrates. IMPRESSION: Pneumonia, clinically improving. My opinion she should be stable to go to rehab environment when a bed becomes available. Job ID: [id number]
[2019-10-08] MEDS: clonazePAM 0.5 MG TAB PO SCH (20:35)
[2019-10-09 04:41] LABS: #Basophils 0.1 thou/uL (0.0-0.2); #Eosinphils 0.5 thou/uL (0.0-0.7); #Lymphocytes 2.6 thou/uL (1.20-3.40); #Monocytes 0.9 thou/uL (0.11-0.59); #Neutrophils 4.4 thou/uL (1.40-6.50); %Basophils 0.6 % (0.0-1.0); %Eosinophils 6.3 % (0.0-10.0); %Lymphocytes 30.9 % (21.0-51.0); %Monocytes 10.3 % (0.0-10.0); %Neutrophils 51.9 % (42.0-75.0); Hemoglobin 10.2 g/dL (12.0-16.0); Mean Corpuscular HGB CONC 33.6 g/dL (32.0-36.0); Mean Corpuscular Hemoglobin 32.2 pg (27.0-31.0); Mean Corpuscular Volume 95.9 fL (78.0-98.0); Mean Platelet Volume 7.7 fL (7.4-10.4); Platelet Count 270 thou/uL (130-400); RBC Distribution Width 11.8 % (11.5-14.5); Red Blood Cell (RBC) Count 3.18 mill/uL (4.20-5.40); White Blood Cell (WBC) Count 8.6 thou/uL (4.8-10.8)
[2019-10-09 04:56] LABS: Anion Gap 10 mmol/L (10-20); BUN (Urea Nitrogen) 16 mg/dL (9.8-20.1); Calc. Creatinine Clearance 97 mL/min (70-130); Calcium 8.3 mg/dL (7.8-10.44); Carbon Dioxide 26 mmol/L (23-31); Chloride 108 mmol/L (98-107); Estimated GFR-MDRD Greater than 90; Glucose 97 mg/dL (80-115); Potassium 3.4 mmol/L (3.5-5.1); Sodium 141 mmol/L (136-145)
[2019-10-09] MEDS: Gabapentin 300 MG CAP PO SCH ×3 (08:30→20:38)
[2019-10-09] MEDS: Metoprolol Tartrate 25 MG TAB PO SCH ×2 (08:30→20:39)
[2019-10-09] MEDS: Rosuvastatin 10 MG TAB PO SCH (08:30)
[2019-10-09] MEDS: Famotidine 20 MG TAB PO SCH ×2 (08:30→20:38)
[2019-10-09] MEDS: Saccharomyces boulardii 250 MG CAP PO SCH (08:30)
[2019-10-09] MEDS: Aspirin Chewable 81 MG TAB PO SCH (08:30)
[2019-10-09] MEDS: predniSONE 20 MG TAB PO SCH (08:30)
[2019-10-09] MEDS: Enoxaparin Sodium 40 MG/0.4 ML SYRINGE SC SCH (08:31)
--- NOTE | 2019-10-09 10:54 | PDOC.HOSPP ---
- Subjective Encounter Date: 10/09/19 Encounter Time: 08:45 Subjective: awake, sitting in chair at bedside says her humidifier in cpap broke last night and has been using nc oxygen since then at night - Objective Vital Signs & Weight: Vital Signs (12 hours) Temp Pulse Resp BP BP Pulse Ox 10/09/19 08:23 98.6 F 99 18 124/67 96 10/09/19 03:48 99 106/62 10/09/19 03:18 98.4 F 108 H 16 92/55 L 95 10/09/19 00:00 104 H 102/58 L Weight Admit Weight 148 lb Weight 140 lb Most Recent Monitor Data Heart Rate from ECG 100 NIBP 135/89 NIBP BP-Mean 104 Respiration from ECG 26 SpO2 96 I&O: 10/08/19 10/09/19 10/10/19 06:59 06:59 06:59 Intake Total 1580 120 Output Total 450 Balance 1130 120 Result Diagrams: 10/09/19 04:02 10/09/19 04:02 Hospitalist ROS - Medication Medications: Active Medications Generic Name Dose Route Start Last Admin Trade Name Freq PRN Reason Stop Dose Admin Acetaminophen 650 mg 09/21/19 06:29 10/02/19 04:36 Tylenol PO 650 mg Q4H PRN Administration Headache/Fever/Mild Pain (1-3) Albuterol/Ipratropium 3 ml 10/01/19 22:09 10/02/19 19:31 Duoneb NEB 3 ml Q4H PRN Administration SOB &/or Wheezing Aspirin 81 mg 09/21/19 09:00 10/09/19 08:30 Aspirin Chewable PO 81 mg DAILY KRISHNA Administration Clonazepam 0.5 mg 10/02/19 15:48 10/02/19 15:56 Klonopin PO 0.5 mg Q6H PRN Administration Anxiety/Restlessness Clonazepam 0.5 mg 10/04/19 21:00 10/08/19 20:35 Klonopin PO 0.5 mg HS KRISHNA Administration Diphenoxylate HCl/Atropine 1 tab 10/02/19 18:53 10/06/19 01:05 Lomotil PO 1 tab Q2H PRN Administration Diarrhea/Loose Stools Enoxaparin Sodium 40 mg 09/21/19 09:00 10/09/19 08:31 Lovenox SC 40 mg 0900 KRISHNA Administration Famotidine 20 mg 10/02/19 21:00 10/09/19 08:30 Pepcid PO 20 mg BID KRISHNA Administration Gabapentin 300 mg 10/03/19 15:00 10/09/19 08:30 Neurontin PO 300 mg TID KRISHNA Administration Melatonin 3 mg 10/01/19 00:39 10/02/19 20:40 Melatonin PO 3 mg HS PRN Administration Insomnia Metoprolol Tartrate 6.25 mg 10/05/19 21:00 10/09/19 08:30 Lopressor PO 6.25 mg BID KRISHNA Administration Ondansetron HCl 4 mg 09/21/19 06:29 09/30/19 13:54 Zofran IVP 4 mg Q6H PRN Administration Nausea/Vomiting Phenol 0 ml 10/01/19 02:20 10/01/19 08:20 Chloraseptic [place] 180 Ml Bot PO 2 sprays BIDPRN PRN Administration Sore Throat Prednisone 10 mg 10/07/19 09:00 10/09/19 08:30 Prednisone PO 10/11/19 09:01 10 mg Q2D@0900 KRISHNA Administration Rosuvastatin Calcium 10 mg 09/21/19 09:00 10/09/19 08:30 Crestor PO 10 mg DAILY KRISHNA Administration Saccharomyces Boulardii 250 mg 10/02/19 09:00 10/09/19 08:30 Florastor PO 250 mg DAILY KRISHNA Administration Sodium Chloride 10 ml 09/21/19 21:00 10/09/19 08:36 Flush - Normal Saline IVF 10 ml Q12HR KRISHNA Administration Throat Lozenges 1 elroy 10/01/19 02:20 10/01/19 08:19 Cepastat Lozenges PO 1 elroy Q2H PRN Administration Sore Throat - Exam General Appearance: awake alert Eye: PERRL, anicteric sclera ENT: no oropharyngeal lesions, moist mucosa Neck: supple, no JVD Heart: RRR, no murmur Respiratory: no wheezes, no rales, rhonchi Gastrointestinal: soft, non-tender, non-distended, normal bowel sounds Extremities: no cyanosis, no edema Neurological: cranial nerve grossly intact, no focal deficits Psychiatric: normal affect, A&O x 3 Hosp A/P (1) Acute respiratory failure with hypoxemia Code(s): J96.01 - ACUTE RESPIRATORY FAILURE WITH HYPOXIA Status: Resolved (2) Metabolic acidosis Code(s): E87.2 - ACIDOSIS Status: Resolved (3) Mitral insufficiency Status: Suspected Qualifiers: Cardiac valve disease etiology: nonrheumatic Qualified Code(s): I34.0 - Nonrheumatic mitral (valve) insufficiency (4) Pneumonia Code(s): J18.9 - PNEUMONIA, UNSPECIFIED ORGANISM Status: Resolved Qualifiers: Pneumonia type: due to unspecified organism Laterality: bilateral Lung location: lower lobe of lung Qualified Code(s): J18.9 - Pneumonia, unspecified organism (5) Dyslipidemia Code(s): E78.5 - HYPERLIPIDEMIA, UNSPECIFIED Status: Chronic (6) Physical deconditioning Code(s): R53.81 - OTHER MALAISE Status: Acute - Plan extubated on 09/30/2019, off bipap, now on home cpap at night and nasal canula oxygen during day (she needs to buy a new humidifier for her cpap) needs to work with PT and mobilize more finished full course fluconazole, finished levaquin and merrem course for pna and sepsis continue asp, crestor, nebs, prednisone q2d x 3 doses and dc has deconditioning, will likely need rehab/swing bed. hemostable d/w patient and family at bedside may dc anytime if rehab accepts her.
[2019-10-09] MEDS: clonazePAM 0.5 MG TAB PO SCH (20:38)
[2019-10-10 05:18] LABS: #Basophils 0.1 thou/uL (0.0-0.2); #Eosinphils 0.4 thou/uL (0.0-0.7); #Lymphocytes 3.3 thou/uL (1.20-3.40); #Neutrophils 5.1 thou/uL (1.40-6.50); %Basophils 0.7 % (0.0-1.0); %Eosinophils 4.1 % (0.0-10.0); %Lymphocytes 33.8 % (21.0-51.0); %Monocytes 10.1 % (0.0-10.0); %Neutrophils 51.3 % (42.0-75.0); Hemoglobin 11.7 g/dL (12.0-16.0); Mean Corpuscular HGB CONC 33.4 g/dL (32.0-36.0); Mean Corpuscular Hemoglobin 32.5 pg (27.0-31.0); Mean Corpuscular Volume 97.2 fL (78.0-98.0); Mean Platelet Volume 7.6 fL (7.4-10.4); Platelet Count 313 thou/uL (130-400); RBC Distribution Width 11.9 % (11.5-14.5); Red Blood Cell (RBC) Count 3.61 mill/uL (4.20-5.40); White Blood Cell (WBC) Count 9.9 thou/uL (4.8-10.8)
[2019-10-10 05:51] LABS: Anion Gap 11 mmol/L (10-20); BUN (Urea Nitrogen) 12 mg/dL (9.8-20.1); Calc. Creatinine Clearance 97 mL/min (70-130); Calcium 9.1 mg/dL (7.8-10.44); Carbon Dioxide 25 mmol/L (23-31); Chloride 109 mmol/L (98-107); Estimated GFR-MDRD Greater than 90; Glucose 97 mg/dL (80-115); Potassium 3.1 mmol/L (3.5-5.1); Sodium 142 mmol/L (136-145)
[2019-10-10] MEDS: Diphenoxylate HCl/Atropine Tablet PO PRN ×3 (08:15→14:16)
[2019-10-10] MEDS: Metoprolol Tartrate 25 MG TAB PO SCH ×2 (08:15→20:06)
[2019-10-10] MEDS: Famotidine 20 MG TAB PO SCH ×2 (08:16→20:06)
[2019-10-10] MEDS: Potassium Chloride 20 MEQ TAB PO SCH ×2 (08:16→17:26)
[2019-10-10] MEDS: Gabapentin 300 MG CAP PO SCH ×3 (08:16→20:07)
[2019-10-10] MEDS: Aspirin Chewable 81 MG TAB PO SCH (08:17)
[2019-10-10] MEDS: Saccharomyces boulardii 250 MG CAP PO SCH (08:17)
[2019-10-10] MEDS: Enoxaparin Sodium 40 MG/0.4 ML SYRINGE SC SCH (08:17)
[2019-10-10] MEDS: Rosuvastatin 10 MG TAB PO SCH (08:17)
--- NOTE | 2019-10-10 11:10 | PDOC.HOSPP ---
- Subjective Encounter Date: 10/10/19 Encounter Time: 10:00 Subjective: no new complaints, feels better - Objective Vital Signs & Weight: Vital Signs (12 hours) Temp Pulse Resp BP BP Pulse Ox 10/10/19 08:08 97.9 F 100 18 101/65 95 10/10/19 03:37 98.0 F 95 23 H 98/59 L 95 10/10/19 00:00 95 117/66 Weight Admit Weight 140 lb Weight 140 lb Most Recent Monitor Data Heart Rate from ECG 100 NIBP 135/89 NIBP BP-Mean 104 Respiration from ECG 26 SpO2 96 I&O: 10/09/19 10/10/19 10/11/19 06:59 06:59 06:59 Intake Total 120 1280 Balance 120 1280 Result Diagrams: 10/10/19 04:08 10/10/19 04:08 Hospitalist ROS - Medication Medications: Active Medications Generic Name Dose Route Start Last Admin Trade Name Freq PRN Reason Stop Dose Admin Acetaminophen 650 mg 09/21/19 06:29 10/02/19 04:36 Tylenol PO 650 mg Q4H PRN Administration Headache/Fever/Mild Pain (1-3) Albuterol/Ipratropium 3 ml 10/01/19 22:09 10/02/19 19:31 Duoneb NEB 3 ml Q4H PRN Administration SOB &/or Wheezing Aspirin 81 mg 09/21/19 09:00 10/10/19 08:17 Aspirin Chewable PO 81 mg DAILY KRISHNA Administration Clonazepam 0.5 mg 10/02/19 15:48 10/02/19 15:56 Klonopin PO 0.5 mg Q6H PRN Administration Anxiety/Restlessness Clonazepam 0.5 mg 10/04/19 21:00 10/09/19 20:38 Klonopin PO 0.5 mg HS KRISHNA Administration Diphenoxylate HCl/Atropine 1 tab 10/02/19 18:53 10/10/19 11:06 Lomotil PO 1 tab Q2H PRN Administration Diarrhea/Loose Stools Enoxaparin Sodium 40 mg 09/21/19 09:00 10/10/19 08:17 Lovenox SC 40 mg 0900 KRISHNA Administration Famotidine 20 mg 10/02/19 21:00 10/10/19 08:16 Pepcid PO 20 mg BID KRISHNA Administration Gabapentin 300 mg 10/03/19 15:00 10/10/19 08:16 Neurontin PO 300 mg TID KRISHNA Administration Melatonin 3 mg 10/01/19 00:39 10/02/19 20:40 Melatonin PO 3 mg HS PRN Administration Insomnia Metoprolol Tartrate 6.25 mg 10/05/19 21:00 10/10/19 08:15 Lopressor PO 6.25 mg BID KRISHNA Administration Ondansetron HCl 4 mg 09/21/19 06:29 09/30/19 13:54 Zofran IVP 4 mg Q6H PRN Administration Nausea/Vomiting Phenol 0 ml 10/01/19 02:20 10/01/19 08:20 Chloraseptic [place] 180 Ml Bot PO 2 sprays BIDPRN PRN Administration Sore Throat Potassium Chloride 40 meq 10/10/19 08:00 10/10/19 08:16 K-Dur PO 10/10/19 17:01 40 meq BID-WM KRISHNA Administration Prednisone 10 mg 10/07/19 09:00 10/09/19 08:30 Prednisone PO 10/11/19 09:01 10 mg Q2D@0900 KRISHNA Administration Rosuvastatin Calcium 10 mg 09/21/19 09:00 10/10/19 08:17 Crestor PO 10 mg DAILY KRISHNA Administration Saccharomyces Boulardii 250 mg 10/02/19 09:00 10/10/19 08:17 Florastor PO 250 mg DAILY KRISHNA Administration Sodium Chloride 10 ml 09/21/19 21:00 10/10/19 08:23 Flush - Normal Saline IVF Not Given Q12HR KRISHNA Throat Lozenges 1 elroy 10/01/19 02:20 10/01/19 08:19 Cepastat Lozenges PO 1 elroy Q2H PRN Administration Sore Throat - Exam General Appearance: awake alert Eye: PERRL, anicteric sclera ENT: no oropharyngeal lesions, moist mucosa Neck: supple, no JVD Heart: RRR, no murmur Respiratory: no wheezes, no rales Gastrointestinal: soft, non-tender, non-distended, normal bowel sounds Extremities: no cyanosis, no edema Neurological: cranial nerve grossly intact, no focal deficits Psychiatric: normal affect, A&O x 3 Hosp A/P (1) Acute respiratory failure with hypoxemia Code(s): J96.01 - ACUTE RESPIRATORY FAILURE WITH HYPOXIA Status: Resolved (2) Metabolic acidosis Code(s): E87.2 - ACIDOSIS Status: Resolved (3) Mitral insufficiency Status: Suspected Qualifiers: Cardiac valve disease etiology: nonrheumatic Qualified Code(s): I34.0 - Nonrheumatic mitral (valve) insufficiency (4) Pneumonia Code(s): J18.9 - PNEUMONIA, UNSPECIFIED ORGANISM Status: Resolved Qualifiers: Pneumonia type: due to unspecified organism Laterality: bilateral Lung location: lower lobe of lung Qualified Code(s): J18.9 - Pneumonia, unspecified organism (5) Dyslipidemia Code(s): E78.5 - HYPERLIPIDEMIA, UNSPECIFIED Status: Chronic (6) Physical deconditioning Code(s): R53.81 - OTHER MALAISE Status: Acute - Plan extubated on 09/30/2019, off bipap, now on nasal canula oxygen during day (she needs to buy a new humidifier for her cpap) needs to work with PT and mobilize more finished full course fluconazole, finished levaquin and merrem course for pna and sepsis continue asp, crestor, nebs, prednisone q2d x 3 doses and dc has deconditioning. hemostable d/w patient and family at bedside may dc anytime if rehab accepts her, if there is a delay going to rehab please transfer pt to medical floor.
[2019-10-10 16:43] VITALS: TEMP 97.6
[2019-10-10 17:53] VITALS: BP 122/80
--- NOTE | 2019-10-10 20:03 | PRG ---
DATE OF SERVICE: 10/10/2019 SUBJECTIVE: Sindi Morley for some reason has not been able to get insurance approval for rehab. OBJECTIVE: VITAL SIGNS: She is afebrile, heart rate is 103, respiratory rate is 18, oximetry is 93% to 94% on 2.5 L cannula, and blood pressure 122/80. LUNGS: Clear. HEART: Regular rhythm. ABDOMEN: Soft. IMPRESSION: Pneumonia, clinically stable. She has to go home with oxygen for a week or two, that is fine. She can get into rehab. She should be discharged tomorrow. She is totally capable of exercising at home in my opinion. Job ID: [id number]
[2019-10-10] MEDS: clonazePAM 0.5 MG TAB PO SCH (20:05)
== END 2019-10-10 20:38 | DRG 870 ==
LOC: ERS 02:24 → SURG B 04:21 → CCU 10:40 → IMCU/EMU 10-05 15:03 → 2NO 10-07 20:20
PROVIDERS: ADMIT Internal Medicine; ATTEND Internal Medicine
PROC: 0BH17EZ Insertion of Endotracheal Airway into Trachea, Via Natural or Artificial Opening (ICD-10-PCS; principal; 2019-09-21)
PROC: 5A1955Z Respiratory Ventilation, Greater than 96 Consecutive Hours (ICD-10-PCS; 2019-09-21)
PROC: 5A09457 Assistance with Respiratory Ventilation, 24-96 Consecutive Hours, Continuous Positive Airway Pressure (ICD-10-PCS; 2019-10-02)
DX: A41.9 Sepsis, unspecified organism (principal); J18.9 Pneumonia, unspecified organism; J96.01 Acute respiratory failure with hypoxia; I50.33 Acute on chronic diastolic (congestive) heart failure; R65.21 Severe sepsis with septic shock; E87.2 Acidosis; B37.89 Other sites of candidiasis; E78.5 Hyperlipidemia, unspecified; F41.9 Anxiety disorder, unspecified; F32.9 Major depressive disorder, single episode, unspecified; Z98.890 Other specified postprocedural states; F10.10 Alcohol abuse, uncomplicated; E78.9 Disorder of lipoprotein metabolism, unspecified; I34.0 Nonrheumatic mitral (valve) insufficiency
CPT/HCPCS: 36415; 71045; 71046; 80048; 80053; 80202; 82533; 82805; 83036; 83605; 83630; 83735; 84100; 84484; 85025; 85379; 87040; 87045; 87046; 87070; 87205; 87324; 87328; 87329; 87427; 87449; 87804; 87899; 93005; 93306; 94002; 94003; 94640; 94660; 94760; 96365; 96367; 96375; 99292; C9113; J0456; J0696; J1120; J1200; J1650; J1940; J1956; J2060; J2185; J2250; J2270; J2405; J2704; J2765; J2920; J3010; J3370; J3490; J7042; J7050; J7512; J7620; P9047; S0028

== ENCOUNTER 2019-10-11 02:53 | Inpatient (IN) | payer OTHER ==
[2019-10-11] MEDS ORDERED: Magnesium 2 GM/50 ML BAG (IN WATER) ONE (03:06)
[2019-10-11] MEDS ORDERED: Succinylcholine Chloride 20 MG/ML 10 ml SYRINGE FS ONE ×2 (03:07→03:18)
[2019-10-11] MEDS ORDERED: EPINEPHrine 1 MG/10 ML Abboject SYRINGE ONE ×2 (03:10→09:50)
[2019-10-11] MEDS ORDERED: EPINEPHrine 1 MG/ML AMP ONE ×2 (03:10→09:48)
[2019-10-11] MEDS ORDERED: Ondansetron PF 4 MG/2 ML Vial ONE (03:18)
[2019-10-11 03:21] LABS: Hemoglobin 11.7 g/dL (12.0-16.0); Mean Corpuscular HGB CONC 32.9 g/dL (32.0-36.0); Mean Corpuscular Hemoglobin 31.8 pg (27.0-31.0); Mean Corpuscular Volume 96.9 fL (78.0-98.0); Mean Platelet Volume 7.7 fL (7.4-10.4); Platelet Count 346 thou/uL (130-400); Red Blood Cell (RBC) Count 3.67 mill/uL (4.20-5.40); White Blood Cell (WBC) Count 19.9 thou/uL (4.8-10.8)
[2019-10-11] MEDS ORDERED: fentaNYL Citrate/PF 2,000 MCG in Sodium Chloride 0.9% 60 ML IV SCH ×2 (03:26→07:09)
[2019-10-11 03:36] LABS: Eosinophils 3 % (0-10); Lymphocytes 40 % (21-51); MDiff Complete? YES; Monocytes 5 % (0-10); Neutrophil 49 % (42-75); Platelet Morphology Comment Appears Adequate; Reactive Lymphocytes 3 % (0-10)
[2019-10-11 03:48] LABS: Anion Gap 15 mmol/L (10-20); BUN (Urea Nitrogen) 15 mg/dL (9.8-20.1); Calc. Creatinine Clearance 0 mL/min (70-130); Carbon Dioxide 21 mmol/L (23-31); Chloride 106 mmol/L (98-107); Potassium 4.9 mmol/L (3.5-5.1); Sodium 137 mmol/L (136-145)
[2019-10-11 03:49] LABS: ALT (SGPT) 30 U/L (8-55); AST (SGOT) 25 U/L (5-34); Albumin 3.5 g/dL (3.4-4.8); Alkaline Phosphatase 51 U/L (40-110); Bilirubin, Total 0.6 mg/dL (0.2-1.2); CK (CPK) 170 U/L (29-168); Calcium 8.8 mg/dL (7.8-10.44); Estimated GFR-MDRD 89; Glucose 251 mg/dL (80-115); Protein, Total 6.5 g/dL (6.0-8.3)
[2019-10-11] MEDS ORDERED: Norepinephrine 8 MG/0.9% NS 250 ML ONE (03:58)
[2019-10-11] MEDS ORDERED: Cefepime 2 GM VIAL ONE (04:47)
[2019-10-11 05:20] LABS: Bacteria/HPF 1+ HPF (None Seen); Bilirubin Negative (Negative); Blood, Urine Negative (Negative); Clarity Turbid (Clear); Glucose, Urine (Dipstick) 300 mg/dL (Negative); Leukocyte Negative Leu/uL (Negative); Mucous/LPF 1+ LPF (<2+); Nitrite Negative (Negative); Protein, Urine (Dipstick) 70 mg/dL (Neg-Trace); Squamous Epithelial 0-3 HPF (0-3); Urobilinogen Normal mg/dL (Less than 2)
[2019-10-11 05:21] LABS: White Blood Cell Cast 0-3 LPF (None Seen)
[2019-10-11 06:21] LABS: Troponin I Less than 0.010 ng/mL (< 0.028)
[2019-10-11 06:46] LABS: Actual Bicarbonate (HCO3a) 15.8 mEq/L (22-28); Base Excess (BEa) -8.1 mEq/L (-2.0 to +3.0); Calcium, Ionized 1.08 mmol/L (1.12-1.30); Carboxyhemoglobin (COHb) 0.4 gm% (0.0-3.0); Hemoglobin (Hb) 11.8 g/dL (12.0-16.0); O2 Tension (PaO2) 155.1 mmHg (> 80.0); Potassium - ABG Lab 3.72 mmol/L (3.70-5.30); pH, Arterial 7.37 (7.35-7.45)
[2019-10-11 06:52] LABS: Puncture Site RBRACH
[2019-10-11] MEDS ORDERED: Sodium Chloride 0.9% 1,000 ML IV SCH (07:00)
[2019-10-11] MEDS ORDERED: Ondansetron ODT 4 MG TAB SL PRN (07:00)
[2019-10-11] MEDS ORDERED: Ondansetron PF 4 MG/2 ML Vial IVP PRN (07:00)
[2019-10-11] MEDS ORDERED: Norepinephrine 8 MG/0.9% NS 250 ML IVPB SCH (07:08)
[2019-10-11] MEDS ORDERED: Fentanyl BOLUS 250 ML IVPB PRN (07:09)
[2019-10-11] MEDS ORDERED: Morphine 2 MG/ML SYRINGE SLOW IVP PRN (07:09)
[2019-10-11] MEDS ORDERED: Propofol BOLUS 1,000 MG/100 ML VIAL IV PRN (07:09)
[2019-10-11] MEDS ORDERED: Propofol 1,000 MG/100 ML VIAL IV PRN (07:09)
[2019-10-11] MEDS ORDERED: DISCONTINUE PREVIOUS NARCOTIC PAIN MEDICATIONS AND BENZODIAZEPINES FS SCH (07:09)
[2019-10-11] MEDS ORDERED: Lorazepam 2 MG/ML VIAL SLOW IVP PRN (07:09)
--- NOTE | 2019-10-11 07:57 | RAD ---
Portable frontal chest radiograph: 10/11/2019 3:06 AM COMPARISON: 10/11/2019 2:44 AM HISTORY: Intubation FINDINGS: Prominent multifocal consolidation/airspace disease noted bilaterally. New endotracheal tub e and nasogastric tube in proper position. IMPRESSION: Dense multifocal nonspecific consolidation/airspace disease. Endotracheal tube and nasoga stric tube in place.
[2019-10-11] MEDS ORDERED: EPINEPHrine 1 MG/10 ML Abboject SYRINGE FS SCH (09:00)
--- NOTE | 2019-10-11 09:05 | RAD ---
PORTABLE CHEST: Date: 10/11/2019 HISTORY: Shortness of breath. Central line placement. FINDINGS: Endotracheal and NG tubes are in satisfactory position. Dense alveolar parahilar infiltrates again no nelida. Right-sided central line is present, catheter tip overlies the superior vena cava. No signs of p neumothorax. IMPRESSION: Post central line placement. No signs of pneumothorax. POS: [facility]
--- NOTE | 2019-10-11 09:12 | RAD ---
PORTABLE CHEST: HISTORY: Respiratory distress. COMPARISON: A 10/07/2019 study. FINDINGS: The heart size is within normal limits. There is worsening bilateral parahilar alveolar infiltrative lung change. This would be suggestive of an atypical pneumonic process. There would be an unusual progressive for pulmonary edema, but this would be another consideration. IMPRESSION: Worsening bilateral parahilar alveolar infiltrates. POS: [facility]
[2019-10-11 09:32] LABS: Troponin I Less than 0.010 ng/mL (< 0.028)
[2019-10-11] MEDS: Sodium Chloride 0.9% 1,000 ML IV SCH ×2 (09:38→20:39)
--- NOTE | 2019-10-11 09:38 | CON ---
DATE OF CONSULTATION: HISTORY OF PRESENT ILLNESS: Sindi Morley is a 64-year-old female, who was just discharged yesterday, comes into the hospital with difficulty breathing. She was [place] a man[place], had a cough. No fever. No chills. She was given several neb treatments and steroids. She was intubated. X-ray shows diffuse bilateral pulmonary infiltrates consistent with pulmonary edema, though she has had a previous echo, which shows normal EF. She is intubated, sedated, unable to get additional history at this stage. PAST MEDICAL HISTORY: Pertinent for recent respiratory failure, pneumonia. PAST SURGICAL HISTORY: Right ankle. Carpal tunnel. SOCIAL HISTORY: Apparently, drinks. history of alcohol abuse. No smoking history. DISCHARGE MEDICATIONS: Included, 1. Crestor 10. 2. Prednisone 10. 3. Aspirin. 4. DuoNeb. 5. Neurontin. 6. Klonopin. 7. She is now on Maxipime and Levophed. PHYSICAL EXAMINATION: VITAL SIGNS: Temperature respiratory rate is 24, blood pressure is 95/65, pulse 80. She is afebrile. CHEST: No wheezing or crackles. CARDIAC: Normal S1, S2. No gallops. ABDOMEN: No masses. LABORATORY DATA: White count 19,000, H and H 9 and 35, platelet count is normal. PO2 is 155, pCO2 rate of 24, 100%, PEEP of 5. Lytes are normal. Urine shows some blood. IMPRESSION: Respiratory failure, bilateral airspace disease, congestive heart failure versus acute respiratory distress syndrome versus pulmonary hemorrhage. PLAN: Added steroids to her present regime. Continue neb treatments, supportive care. This is a 45-minute critical time. She is probably going to need a bronchoscopy and lavage. Job ID: [id number]
--- NOTE | 2019-10-11 11:00 | OP ---
DATE OF PROCEDURE: 10/11/2019 IDENTIFICATION DATA: A 64-year-old female. PROCEDURES PERFORMED: Bronchoscopy with lavage. INDICATION FOR PROCEDURE: Respiratory failure, etiology unclear, rule out pulmonary hemorrhage, rule out CA, rule out right atypical pneumonia. DESCRIPTION OF PROCEDURE: After informed consent, the flexible bronchoscope was passed using an adapter on endotracheal tube. Distal trachea was visualized. There were copious amounts of frothy bloody secretions. Right lung was inspected initially, diffuse pulmonary hemorrhage, but no endobronchial disease was seen. The area was lavaged with normal saline until completely clear. Left lung was inspected thereafter. The left lower lung surprisingly had an area in the basilar segments from one of the spores that is bleeding, but clearly no endobronchial disease was seen. This area was also lavaged with normal saline until completely clear. Epinephrine 1:10,000 was instilled into the left lower lung to control the bleeding, which is significantly decreased. Both lungs were reinspected and re-lavaged with normal saline until completely clear. The bronchial washings are clearly bloody. The washings will be sent for AFB smear and culture, fungal smear and culture, routine Gram stain, and RE[employer] SUPER[employer]OR as well as hemosiderin macrophages, cytology. We tried to rule out vasculitis. The patient tolerated the procedure well. Job ID: [id number]
[2019-10-11 11:09] LABS: Bilirubin Negative (Negative); Glucose, Urine (Dipstick) >=1000 mg/dL (Negative); Leukocyte Negative (Negative); Nitrite Negative (Negative); Protein, Urine (Dipstick) 30 mg/dL (Neg-Trace); Urobilinogen 0.2 mg/dL (Less than 2)
[2019-10-11 11:10] LABS: Blood, Urine Trace (Negative); Clarity Clear (Clear)
[2019-10-11 11:19] LABS: RBC/HPF 0-3 HPF (0-3); WBC/HPF 0-3 HPF (0-3)
[2019-10-11 11:20] LABS: Bacteria/HPF None Seen HPF (None Seen); Renal Epithelial 0-3 HPF (None Seen); Squamous Epithelial None Seen HPF (0-3); Transitional Epithelial 0-3 HPF (None Seen)
[2019-10-11 11:21] LABS: Calcium Oxalate Crystals Rare HPF (None Seen)
[2019-10-11 11:22] LABS: Red Blood Cell Cast None Seen LPF (None Seen)
[2019-10-11] MEDS: methylPREDNISolone Sod Succ 40 MG VIAL IVP SCH ×3 (11:22→23:55)
[2019-10-11] MEDS: Cefepime 2 GM in Sodium Chloride 0.9% 100 ML IVPB SCH ×2 (11:23→21:11)
[2019-10-11] MEDS ORDERED: Sodium Chloride 0.9% (PF) 10 ML VIAL FS PRN (12:37)
[2019-10-11 14:45] LABS: ANA Symphony (Qualitative) Negative (Negative); ANA Symphony (Quantitative) 0.1 Ratio (< 0.7 Negative)
[2019-10-11] MEDS ORDERED: Enoxaparin Sodium 40 MG/0.4 ML SYRINGE SC SCH (21:00)
[2019-10-11] MEDS ORDERED: Pantoprazole 40 MG VIAL IVP SCH (21:00)
[2019-10-12] MEDS ORDERED: Fentanyl BOLUS 250 ML IVPB PRN (00:28)
[2019-10-12] MEDS ORDERED: Morphine 2 MG/ML SYRINGE SLOW IVP PRN (00:28)
[2019-10-12] MEDS ORDERED: Propofol BOLUS 1,000 MG/100 ML VIAL IV PRN (00:28)
[2019-10-12] MEDS ORDERED: Norepinephrine 8 MG/0.9% NS 250 ML IVPB SCH (00:30)
[2019-10-12] MEDS: Cefepime 2 GM in Sodium Chloride 0.9% 100 ML IVPB SCH ×3 (05:10→20:19)
[2019-10-12] MEDS: Sodium Chloride 0.9% 1,000 ML IV SCH ×2 (06:08→17:36)
[2019-10-12] MEDS: methylPREDNISolone Sod Succ 40 MG VIAL IVP SCH ×4 (06:09→23:07)
[2019-10-12 06:43] LABS: Actual Bicarbonate (HCO3a) 17.9 mEq/L (22-28); Base Excess (BEa) -7.1 mEq/L (-2.0 to +3.0); Carboxyhemoglobin (COHb) 0.4 gm% (0.0-3.0); Hemoglobin (Hb) 10.7 g/dL (12.0-16.0); O2 Tension (PaO2) 64.7 mmHg (> 80.0); Potassium - ABG Lab 4.61 mmol/L (3.70-5.30); pH, Arterial 7.34 (7.35-7.45)
[2019-10-12 06:51] LABS: Puncture Site RRAD
[2019-10-12] MEDS: Lorazepam 2 MG/ML VIAL SLOW IVP PRN ×2 (08:38→12:28)
[2019-10-12] MEDS: Propofol 1,000 MG/100 ML VIAL IV PRN (09:34)
[2019-10-12] MEDS ORDERED: Furosemide 20 MG/2 ML VIAL SLOW IVP SCH (10:15)
--- NOTE | 2019-10-12 10:17 | PRG ---
DATE OF SERVICE: 10/12/2019 SUBJECTIVE: Sindi Morley is a 64-year-old female. This morning, she is intubated in the vent, remains sedated. OBJECTIVE: VITAL SIGNS: Pulse 113, blood pressure 123/75, saturations 90%, respirations 14. I's and O's have been consistently ahead. CHEST: Bilateral rhonchi and crackles. CARDIAC: Normal S1 and S2. No gallops. ABDOMEN: Soft. LABORATORY DATA: PO2 is 64, pCO2 is 34, rate of 16, 60%, PEEP of 5. Urine was normal. CRISTIANO so far negative. Still awaiting results of the blood tests. X-ray pending. There was no significant hemosiderin laden macrophages seen. IMPRESSION: Pulmonary hemorrhage, congestive heart failure, respiratory failure, pneumonia, mitral regurgitation. Continue supportive care. Steroids and neb treatment. Nutrition PT. Slow weaning. One-half hour of critical time. Job ID: [id number]
--- NOTE | 2019-10-12 10:18 | RAD ---
CHEST 1 VIEW: HISTORY: Respiratory distress. Ventilated patient. FINDINGS: Stable right-sided internal jugular central venous catheter. Redemonstration of endotracheal tube an d nasogastric tubes. Normal cardiac silhouette. Atherosclerosis of the aorta. Redemonstration of bilateral predominantly perihilar alveolar infiltrates. Patchy interstitial opaci ties are noted. No pneumothorax. IMPRESSION: No significant interval change. POS: [facility]
[2019-10-12] MEDS ORDERED: Dextrose 50% Abboject 50 ML SYRINGE SLOW IVP PRN (12:32)
[2019-10-12] MEDS ORDERED: Dextrose 5% in Water 1,000 ML IV PRN (12:32)
--- NOTE | 2019-10-12 13:04 | CON ---
DATE OF CONSULTATION: 10/12/2019 REASON FOR CONSULTATION: Mitral regurgitation. HISTORY OF PRESENT ILLNESS: Ms. Morley is a 64-year-old white female, who comes to the hospital for recurrent pneumonia. She was in the hospital late September for pneumonia. She was treated and sent to rehab. She had to come back for worsening shortness of breath. She was brought back in, had to be intubated. She was found to have diffuse bilateral pulmonary infiltrates, which could be either related to pulmonary edema. She had a bronchoscopy yesterday, that showed a large amount of blood in her bronchial tree. This was suctioned and sent for pathology. Echocardiogram was performed, which showed an EF of 60% to 65%; however, mitral valve showed severe mitral regurgitation, which is new compared to having had moderate mitral regurgitation on an echo just a few weeks ago. Cardiology is being consulted for this. On my evaluation, Ms. Morley is intubated and sedated, unable to provide any history. PAST MEDICAL HISTORY: 1. Hyperlipidemia. 2. Sleep apnea. 3. Carpal tunnel syndrome. PAST SURGICAL HISTORY: 1. Right ankle surgery. 2. Appendectomy. OUTPATIENT MEDICATIONS: 1. Aspirin. 2. Crestor. ALLERGIES: NO KNOWN DRUG ALLERGIES. SOCIAL HISTORY: Drinks about 5 beers daily. No smoking. No drug use. FAMILY HISTORY: Noncontributory. REVIEW OF SYSTEMS: Unobtainable as the patient is sedated and intubated. PHYSICAL EXAMINATION: VITAL SIGNS: Temperature 97.7, pulse 86, respiratory rate 12, saturating 92% on 40% FiO2, and blood pressure 108/76. GENERAL: Sedated and intubated. NECK: Supple. LUNGS: Have coarse breath sounds bilaterally. CARDIOVASCULAR: S1 and S2. No S3 or S4. Heart rate . ABDOMEN: Soft. Positive bowel sounds. EXTREMITIES: No edema. SKIN: Warm and dry. LABORATORY DATA: Laboratory work was reviewed. White count 19, hemoglobin 11, hematocrit 35, and platelet count 346. ABG was reviewed. Chemistries were reviewed. Troponins were negative x3. BNP was 132. Albumin of 3.5. UA was reviewed. Echocardiogram showed an EF of 60% to 65% with severe MR. RVSP was 45 mmHg. She has small pericardial effusion and moderate pleural effusion. ASSESSMENT/PLAN: 1. Severe mitral regurgitation. 2. Questionable mitral valve prolapse, unclear on this new echocardiogram. 3. Septic shock. 4. Alveolar hemorrhage. 5. Acute hypoxic respiratory insufficiency, requiring mechanical ventilation. PLAN: 1. She will need a transesophageal echo to further evaluate her mitral valve, make sure there are no vegetations that would be causing her mitral valve to get worse so quick. 2. At this time, she is still on Levophed to keep her blood pressures up. She is too unstable for a transesophageal echo, and since this will not change our management as she still needs the IV antibiotics that she is getting, we will hold off until she is more stable. 3. Continue supportive care per Primary Team. 4. Agree with IV Lasix, although not a lot can be given her borderline low blood pressure. 5. Acute mitral regurgitation is a known cause of alveolar hemorrhage and it may as well be the cause of her acute decompensation. Thank you for letting us to participate in the care of your patient. We will follow. 45 minutes of critical care time. Job ID: [id number] [email or web address]
--- NOTE | 2019-10-12 13:54 | HP ---
PRESENTING COMPLAINT: Hypoxia, respiratory distress, and respiratory failure. HISTORY OF PRESENT ILLNESS: The patient with past medical history of anxiety disorder and hypertension, who was recently admitted to the hospital on 09/21/2019, and had a prolonged hospital admission. The patient was intubated and extubated for acute respiratory failure secondary to hypoxia and pneumonia, mitral insufficiency, and treated with IV antibiotics and the patient was discharged to rehab, but the patient readmitted with worsening shortness of breath and hypoxia. The patient admitted to ICU, status post intubation and status post bronchoscopy. Currently intubated on low-dose pressors and sedation. SYSTEMIC REVIEW: Could not be obtained due to the patient's condition. PAST MEDICAL HISTORY: As mentioned above. SURGICAL HISTORY: History of toe surgery for fracture. FAMILY HISTORY: CVA and father had colon cancer. ALLERGIES: NO ALLERGY. MEDICATIONS: 1. Loperamide. 2. Aspirin. 3. Rosuvasatin. 4. Clonazepam. 5. Gabapentin. 6. Ipratropium. 7. Melatonin. 8. Florastor. 9. Prednisone. PHYSICAL EXAMINATION: VITAL SIGNS: Blood pressure 108/76, temperature 97.7, oxygen saturation 95% and intubated, and pulse 86. GENERAL: The patient is orally intubated. Nonverbal, noncommunicative. HEENT: Conjunctivae normal. Oral mucosa dry. NECK: Supple. No JVD. No lymphadenopathy. CHEST: Decreased air entry in bilateral lower lung [place]. HEART: Sounds normal. ABDOMEN: Mildly distended. Bowel sounds audible. EXTREMITIES: Minimal edema of feet positive. LABORATORY DATA: CBC on 10/11: White blood cells 19.9 and hemoglobin 11.7. Troponins negative. CMP: Unremarkable on admission except carbon dioxide of 21 and blood glucose 251. ABGs on admission: 7.37, 28, 155. ABGs on 10/12: 7.34, 34, 64. Echocardiogram: Ejection fraction 60% to 65%, grade 2-3 diastolic dysfunction, moderately dilated left atrium , mildly enlarged right atrium size, aortic valve sclerosis, mild tricuspid regurgitation, elevated right ventricular systolic pressure, mild pulmonic regurgitation, small pericardial effusion, moderate pleural effusion, severe mitral regurgitation. IMPRESSION: 1. Acute hypoxemic respiratory failure, most likely secondary to pulmonary hemorrhage with possible acute congestive heart failure, possible secondary to severe mitral valve regurgitation and possible component of diastolic dysfunction. The patient is currently intubated on vent. Continue vent management as per ICU team. Continue nebulizers, steroids, and antibiotics. The patient given a dose of Lasix. Cardiology being consulted. Echo shows severe mitral regurgitation and a grade 2-3 diastolic dysfunction. 2. Leukocytosis, possible component of pneumonia. Continue cefepime and Levaquin at present. Follow up culture. Follow up labs in the morning. 3. High blood sugar on admission, most likely secondary to steroid induced. We will check. Continue monitoring blood sugar. 4. History of hypertension. Continue monitoring blood pressure. 5. History of anxiety disorder. PLAN: Discussed with the nursing staff and the son who is present at bedside. All questions answered. Job ID: [id number]
[2019-10-12] MEDS: HumaLOG 300 UNITS/3 ML VIAL SC PRN ×2 (18:26→23:29)
[2019-10-12] MEDS: fentaNYL Citrate/PF 2,000 MCG in Sodium Chloride 0.9% 60 ML IV SCH (19:13)
[2019-10-12] MEDS: Enoxaparin Sodium 40 MG/0.4 ML SYRINGE SC SCH (20:19)
[2019-10-12] MEDS: Pantoprazole 40 MG VIAL IVP SCH (20:20)
[2019-10-13] MEDS: Propofol 1,000 MG/100 ML VIAL IV PRN ×3 (00:27→17:59)
[2019-10-13] MEDS: Cefepime 2 GM in Sodium Chloride 0.9% 100 ML IVPB SCH ×3 (03:03→20:22)
[2019-10-13] MEDS: Sodium Chloride 0.9% 1,000 ML IV SCH ×3 (05:05→20:22)
[2019-10-13] MEDS: methylPREDNISolone Sod Succ 40 MG VIAL IVP SCH ×4 (05:06→23:11)
[2019-10-13] MEDS: HumaLOG 300 UNITS/3 ML VIAL SC PRN (05:24)
[2019-10-13 06:23] LABS: #Lymphocytes 1.9 thou/uL (1.20-3.40); #Monocytes 0.9 thou/uL (0.11-0.59); #Neutrophils 9.9 thou/uL (1.40-6.50); %Basophils 0.4 % (0.0-1.0); %Eosinophils 0.2 % (0.0-10.0); %Lymphocytes 14.7 % (21.0-51.0); %Neutrophils 77.8 % (42.0-75.0); Hemoglobin 9.4 g/dL (12.0-16.0); Mean Corpuscular Hemoglobin 31.5 pg (27.0-31.0); Mean Corpuscular Volume 98.5 fL (78.0-98.0); Mean Platelet Volume 7.4 fL (7.4-10.4); Platelet Count 343 thou/uL (130-400); RBC Distribution Width 12.5 % (11.5-14.5); Red Blood Cell (RBC) Count 2.97 mill/uL (4.20-5.40); White Blood Cell (WBC) Count 12.7 thou/uL (4.8-10.8)
[2019-10-13 06:39] LABS: Actual Bicarbonate (HCO3a) 18.5 mEq/L (22-28); Base Excess (BEa) -8.3 mEq/L (-2.0 to +3.0); CO2 Tension 43.2 mmHg (35.0-45.0); Calcium, Ionized 1.25 mmol/L (1.12-1.30); Carboxyhemoglobin (COHb) 0.3 gm% (0.0-3.0); Hemoglobin (Hb) 11.4 g/dL (12.0-16.0); Potassium - ABG Lab 4.63 mmol/L (3.70-5.30)
[2019-10-13 06:42] LABS: Anion Gap 10 mmol/L (10-20); BUN (Urea Nitrogen) 22 mg/dL (9.8-20.1); Calc. Creatinine Clearance 95 mL/min (70-130); Calcium 8.5 mg/dL (7.8-10.44); Carbon Dioxide 21 mmol/L (23-31); Chloride 115 mmol/L (98-107); Estimated GFR-MDRD Greater than 90; Glucose 172 mg/dL (80-115); Potassium 4.7 mmol/L (3.5-5.1); Sodium 141 mmol/L (136-145)
[2019-10-13 06:45] LABS: pH, Arterial 7.25 (7.35-7.45)
[2019-10-13 06:46] LABS: Puncture Site RBRACH
--- NOTE | 2019-10-13 08:33 | RAD ---
XR Chest 1 View Portable History: Ventilated patient Comparison: Radiograph prior day Findings: Endotracheal tube tip is above the yung approximately 1.6 cm. Right IJ central venous cat heter is similar. Large bilateral layering pleural effusions. Worsening aeration of the upper lobes. Enteric tube side port at the gastric body. Right IJ central venous catheter tip projects over the ri ght atrium. Impression: Mild enlarging bilateral effusions and worsening right upper lobe airspace consolidation.
--- NOTE | 2019-10-13 09:29 | PRG ---
DATE OF SERVICE: 10/13/2019 SUBJECTIVE: Sindi Morley is a 64-year-old female, remains intubated in the vent. When the sedation is withheld, she is much more appropriate. OBJECTIVE: VITAL SIGNS: Respiratory rate 16; blood pressure 120/80, on Levophed; pulse 80; sats 100%. I's and O's . CHEST: Bilateral crackles and rhonchi. CARDIAC: No gallops. No murmurs. ABDOMEN: Soft. LABORATORY DATA: PO2 is 55, . Lytes are normal. X-ray still shows diffuse bilateral infiltrates. IMPRESSION: Respiratory failure, pulmonary hemorrhage, may be due to severe mitral regurgitation. Cardiology is following. The EF was normal. Pulmonary alveolar hemorrhage. Continue steroids. Continue antibiotics. Await results of ANCA. Await results of PRINCESS. Nutrition, PT, supportive care, try and wean off Levophed if possible. One-half hour of critical care time. Job ID: [id number]
--- NOTE | 2019-10-13 12:39 | PDOC.CPN ---
- Subjective Date: 10/13/19 Time: 12:39 Interval history: Remains intubated, sedated. - Review of Systems ROS unobtainable: due to endotracheal tube - Objective Allergies/Adverse Reactions: Allergies Allergy/AdvReac Type Severity Reaction Status Date / Time No Known Allergies Allergy Verified 09/21/19 05:58 Visit Medications: Current Medications Albuterol/Ipratropium (Duoneb) 3 ml NEB [id number] [facility] Last Admin: 10/13/19 06:47 Dose: 3 ml Dextrose/Water (Dextrose 50%) 25 gm SLOW IVP PRN PRN PRN Reason: Hypoglycemia Enoxaparin Sodium (Lovenox) 40 mg SC 2100 [facility] Last Admin: 10/12/19 20:19 Dose: 40 mg Glucagon (Glucagon) 1 mg IM PRN PRN PRN Reason: Hypoglycemia Sodium Chloride (Normal Saline 0.9%) 1,000 mls @ 100 mls/hr IV .Q10H [facility] Last Admin: 10/13/19 05:05 Dose: 1,000 mls Levofloxacin 750 mg/ Device 150 mls @ 100 mls/hr IVPB Q24HR [facility] Last Admin: 10/13/19 09:10 Dose: 150 mls Cefepime HCl 2 gm/ Sodium (Chloride) 100 mls @ 200 mls/hr IVPB 0400,1200,2000 [facility] Last Admin: 10/13/19 11:11 Dose: 100 mls Norepinephrine Bitartrate (Levophed) 250 mls @ 0 mls/hr IVPB INF [facility]; Protocol Last Admin: 10/12/19 20:28 Dose: 250 mls Fentanyl Citrate 2,000 mcg/ (Sodium Chloride) 100 mls @ 0 mls/hr IV INF [facility]; Protocol Last Admin: 10/12/19 19:13 Dose: 100 mls Fentanyl Citrate (Fentanyl Bolus) 250 mls @ 0 mls/hr IVPB PRN PRN PRN Reason: Breakthrough pain/agitation Dextrose/Water (D5w) 1,000 mls @ 0 mls/hr IV .Q0M PRN PRN Reason: Hypoglycemia Insulin Human Lispro (Humalog) 0 units SC .MILD SLIDING SCALE PRN PRN Reason: Mild Correctional Scale Last Admin: 10/13/19 05:24 Dose: 2 unit Lorazepam (Ativan) 2 mg SLOW IVP Q1H PRN PRN Reason: Breakthrough agitation Last Admin: 10/12/19 12:28 Dose: 2 mg Methylprednisolone Sodium Succinate (Solu-Medrol) 40 mg IVP Q6HR [facility] Last Admin: 10/13/19 11:12 Dose: 40 mg Morphine Sulfate (Morphine) 2 mg SLOW IVP Q1H PRN PRN Reason: BREAKTHROUGH PAIN/Agitation Pantoprazole Sodium (Protonix) 40 mg IVP 2100 [facility] Last Admin: 10/12/19 20:20 Dose: 40 mg Propofol (Diprivan) 1,000 mg IV INF PRN; Protocol PRN Reason: TO ACHIEVE GOAL RASS Last Admin: 10/13/19 06:22 Dose: 1,000 mg Propofol (Diprivan Bolus) 20 mg IV Q5MIN PRN PRN Reason: BREAKTHROUGH AGITATION Sodium Chloride (Flush - Normal Saline) 10 ml IVF PRN PRN PRN Reason: Saline Flush Sodium Chloride (Normal Saline Pf) 10 ml FS PRN PRN PRN Reason: RECONSTITUTION Vital Signs & Weight: Vital Signs Temp Pulse Resp BP Pulse Ox 10/13/19 12:00 97.6 F 16 10/13/19 10:17 91 10/13/19 10:00 16 10/13/19 08:00 96.8 F L 16 95 10/13/19 06:47 87 16 93 L 10/13/19 06:25 86 10/13/19 06:00 16 10/13/19 04:00 15 10/13/19 03:00 97.9 F 10/13/19 02:53 99 115/70 10/13/19 02:00 12 Admit Weight 144 lb Weight 150 lb 9.211 oz - Physical Exam General: other (S/I) HEENT: normocephaly Neck: supple neck Cardiac: regular rate and rhythm Lungs: normal breath sounds Neuro: grossly intact Abdomen: active bowel sounds Extremities: no edema Skin: clear Musculoskeletal: no pain - Labs Result Diagrams: 10/13/19 06:10 10/13/19 06:10 Troponin/CKMB Troponin I Less than 0.010 ng/mL (< 0.028) 10/11/19 08:51 - Telemetry Sinus rhythms and dysrhythmias: sinus rhythm - Assessment/Plan Assessment/Plan: 1. Alveolar hemorrhage 2. Severe MR, acute? 3. Cardiogenic shock 4. Septic shock 5. Pneumonia PLAN: - Continue supportive care. - Wean pressors. - PRINCESS planned once more stable. - Improved from yesterday, needing less support. - Critical Care Time Critical care time (mins): 30
--- NOTE | 2019-10-13 13:08 | PRG ---
DATE OF SERVICE: 10/13/2019 SUBJECTIVE: The patient is seen at bedside, orally intubated. Overall, no change in condition since yesterday. Systemic review could not be obtained due to the patient orally intubated. OBJECTIVE: VITAL SIGNS: Blood pressure 96/57, temperature 97.6, pulse 85, respirations 18, and oxygen saturation 100%. GENERAL: The patient is orally intubated. HEENT: Conjunctivae normal. Oral mucosa moist. NECK: Supple. No JVD. CHEST: Decreased air entry in bilateral lower lung [place]. HEART: Heart sounds normal. ABDOMEN: Soft. EXTREMITIES: Minimal edema of feet positive. LABORATORY DATA: CBC unremarkable except white blood cells 12.7, hemoglobin 9.4 , and platelet 343. BMP unremarkable. Blood glucose 192, creatinine 0.66, and carbon dioxide 21. Bronchial washing cultures negative so far. Chest x-ray, mildly enlarging bilateral effusions and worsening right upper lobe airspace consolidation. IMPRESSION: 1. Acute hypoxemic respiratory failure, most likely secondary to acute pulmonary edema with pulmonary hemorrhage, possible secondary to severe mitral valve regurgitation and possible component of diastolic dysfunction. Continue vent management as per ICU team. Continue nebs and steroids and antibiotics for possible pneumonia. Echo shows severe mitral regurgitation and grade 2 to 3 diastolic dysfunction. Cardio is on board, recommending PRINCESS when the patient is more stabilized. 2. Leukocytosis, possible component of pneumonia. Continue antibiotics. Follow up culture, currently negative. 3. High blood sugar, possible steroid induced. Continue to monitor blood sugar. 4. HTN . Continue monitoring blood pressure. 5. History of anxiety disorder. Plan discussed with the son, who is present at bedside. All questions answered. Job ID: [id number] [facility]
[2019-10-13] MEDS: Lorazepam 2 MG/ML VIAL SLOW IVP PRN (14:51)
[2019-10-13] MEDS: Pantoprazole 40 MG VIAL IVP SCH (20:23)
[2019-10-13] MEDS: Enoxaparin Sodium 40 MG/0.4 ML SYRINGE SC SCH (20:23)
[2019-10-14] MEDS: HumaLOG 300 UNITS/3 ML VIAL SC PRN ×5 (00:28→22:31)
[2019-10-14 03:59] LABS: #Lymphocytes 1.5 thou/uL (1.20-3.40); #Monocytes 0.6 thou/uL (0.11-0.59); #Neutrophils 5.9 thou/uL (1.40-6.50); %Basophils 0.3 % (0.0-1.0); %Eosinophils 0.3 % (0.0-10.0); %Neutrophils 73.5 % (42.0-75.0); Mean Corpuscular HGB CONC 33.7 g/dL (32.0-36.0); Mean Corpuscular Hemoglobin 33.2 pg (27.0-31.0); Mean Corpuscular Volume 98.7 fL (78.0-98.0); Mean Platelet Volume 7.6 fL (7.4-10.4); Platelet Count 271 thou/uL (130-400); RBC Distribution Width 12.5 % (11.5-14.5); Red Blood Cell (RBC) Count 2.71 mill/uL (4.20-5.40); White Blood Cell (WBC) Count 8.1 thou/uL (4.8-10.8)
[2019-10-14 04:18] LABS: Anion Gap 9 mmol/L (10-20); BUN (Urea Nitrogen) 23 mg/dL (9.8-20.1); Calc. Creatinine Clearance 101 mL/min (70-130); Calcium 8.2 mg/dL (7.8-10.44); Carbon Dioxide 20 mmol/L (23-31); Chloride 115 mmol/L (98-107); Estimated GFR-MDRD Greater than 90; Glucose 179 mg/dL (80-115); Potassium 4.3 mmol/L (3.5-5.1); Sodium 140 mmol/L (136-145)
[2019-10-14] MEDS: Cefepime 2 GM in Sodium Chloride 0.9% 100 ML IVPB SCH ×3 (04:30→20:54)
[2019-10-14] MEDS: Sodium Chloride 0.9% 1,000 ML IV SCH ×2 (04:30→18:07)
[2019-10-14] MEDS: Propofol 1,000 MG/100 ML VIAL IV PRN ×2 (04:31→15:05)
[2019-10-14] MEDS: methylPREDNISolone Sod Succ 40 MG VIAL IVP SCH ×4 (05:05→23:57)
[2019-10-14 06:52] LABS: Actual Bicarbonate (HCO3a) 18.5 mEq/L (22-28); Base Excess (BEa) -5.6 mEq/L (-2.0 to +3.0); CO2 Tension 30.6 mmHg (35.0-45.0); Calcium, Ionized 1.23 mmol/L (1.12-1.30); Carboxyhemoglobin (COHb) 0.5 gm% (0.0-3.0); Hemoglobin (Hb) 8.5 g/dL (12.0-16.0); O2 Tension (PaO2) 92.4 mmHg (> 80.0); Potassium - ABG Lab 4.26 mmol/L (3.70-5.30)
[2019-10-14 07:22] LABS: Puncture Site RBRACH
[2019-10-14] MEDS: Lorazepam 2 MG/ML VIAL SLOW IVP PRN ×3 (08:15→21:23)
--- NOTE | 2019-10-14 08:33 | RAD ---
FRONTAL RADIOGRAPH CHEST: DATE: 10/14/2019. COMPARISON: 10/13/2019. HISTORY: Ventilated patient. FINDINGS: Stable endotracheal tube, slightly low-lying, within 1.2 cm of the yung. Stable right-sided vascul ar catheter and nasogastric tube. There is stable diffuse dense consolidative change/airspace disease, right greater than left. Stable bilateral pleural effusions. IMPRESSION: Stable appearance of the chest. POS: YOSELIN
[2019-10-14] MEDS: fentaNYL Citrate/PF 2,000 MCG in Sodium Chloride 0.9% 60 ML IV SCH (10:37)
--- NOTE | 2019-10-14 13:11 | PDOC.HOSPP ---
- Subjective Encounter Date: 10/14/19 Encounter Time: 11:45 Subjective: on vent, mild sedation at bedside not in distress - Objective Vital Signs & Weight: Vital Signs (12 hours) Temp Pulse Resp BP Pulse Ox 10/14/19 12:00 97.6 F 17 10/14/19 10:52 117 H 10/14/19 10:00 27 H 10/14/19 08:00 98.6 F 22 H 10/14/19 07:28 95 10/14/19 07:21 105 H 22 H 96 10/14/19 06:36 97 10/14/19 06:00 98.0 F 16 10/14/19 04:00 16 10/14/19 02:06 106 H 103/63 10/14/19 02:00 97.6 F 16 Weight Admit Weight 144 lb Weight 150 lb 2.157 oz Most Recent Monitor Data Heart Rate from ECG 100 NIBP 103/70 NIBP BP-Mean 81 Respiration from ECG 14 SpO2 94 I&O: 10/13/19 10/14/19 10/15/19 06:59 06:59 06:59 Intake Total 3161.3 3698 Output Total 1630 935 310 Balance 1531.3 2763 -310 Result Diagrams: 10/14/19 03:30 10/14/19 03:30 Additional Labs: Accuchecks 10/14/19 10/14/19 10/14/19 11:56 06:27 00:24 POC Glucose 173 H 166 H 155 H 10/13/19 17:25 POC Glucose 149 H Hospitalist ROS - Medication Medications: Active Medications Generic Name Dose Route Start Last Admin Trade Name Kevinq PRN Reason Stop Dose Admin Albuterol/Ipratropium 3 ml 10/11/19 13:00 10/14/19 07:21 Duoneb NEB 3 ml [id number] [facility] Administration Enoxaparin Sodium 40 mg 10/12/19 21:00 10/13/19 20:23 Lovenox SC 40 mg 2100 [facility] Administration Sodium Chloride 1,000 mls @ 100 mls/hr 10/11/19 08:57 10/14/19 04:30 Normal Saline 0.9% IV 1,000 mls .Q10H [facility] Administration Levofloxacin 750 mg/ Device 150 mls @ 100 mls/hr 10/11/19 09:15 10/14/19 08: 21 IVPB 150 mls Q24HR [facility] Administration Cefepime HCl 2 gm/ Sodium 100 mls @ 200 mls/hr 10/12/19 04:00 10/14/19 11:44 Chloride IVPB 100 mls 0400,1200,2000 [facility] Administration Norepinephrine Bitartrate 250 mls @ 0 mls/hr 10/12/19 00:30 10/12/19 20:28 Levophed IVPB 250 mls INF [facility] Administration Protocol Titrate Fentanyl Citrate 2,000 mcg/ 100 mls @ 0 mls/hr 10/12/19 00:30 10/14/19 10:37 Sodium Chloride IV 100 mls INF [facility] Administration Protocol Per Protocol Insulin Human Lispro 0 units 10/12/19 12:32 10/14/19 11:53 Humalog SC 2 unit .MILD SLIDING SCALE PRN Administration Mild Correctional Scale Lorazepam 2 mg 10/12/19 00:28 10/14/19 09:14 Ativan SLOW IVP 2 mg Q1H PRN Administration Breakthrough agitation Methylprednisolone Sodium Succinate 40 mg 10/11/19 12:00 10/14/19 11:44 Solu-Medrol IVP 40 mg Q6HR [facility] Administration Morphine Sulfate 2 mg 10/12/19 00:28 10/14/19 09:29 Morphine SLOW IVP 2 mg Q1H PRN Administration BREAKTHROUGH PAIN/Agitation Pantoprazole Sodium 40 mg 10/12/19 21:00 10/13/19 20:23 Protonix IVP 40 mg 2100 [facility] Administration Propofol 1,000 mg 10/12/19 00:27 10/14/19 04:31 Diprivan IV 1,000 mg INF PRN Administration TO ACHIEVE GOAL RASS Protocol - Exam Eye: PERRL, anicteric sclera ENT: no oropharyngeal lesions, moist mucosa Neck: supple, no JVD Heart: RRR, no murmur Respiratory: no wheezes, rales, rhonchi Gastrointestinal: soft, non-tender, non-distended, normal bowel sounds Extremities: no cyanosis, no edema Neurological: cranial nerve grossly intact, no focal deficits Hosp A/P (1) Mitral insufficiency Status: Acute Qualifiers: Cardiac valve disease etiology: nonrheumatic Qualified Code(s): I34.0 - Nonrheumatic mitral (valve) insufficiency (2) Sepsis with acute hypoxic respiratory failure Code(s): A41.9 - SEPSIS, UNSPECIFIED ORGANISM; R65.20 - SEVERE SEPSIS WITHOUT SEPTIC SHOCK; J96.01 - ACUTE RESPIRATORY FAILURE WITH HYPOXIA Status: Acute Qualifiers: Sepsis type: sepsis due to unspecified organism Severe sepsis shock status : without septic shock Qualified Code(s): A41.9 - Sepsis, unspecified organism ; R65.20 - Severe sepsis without septic shock; J96.01 - Acute respiratory failure with hypoxia (3) Dyslipidemia Code(s): E78.5 - HYPERLIPIDEMIA, UNSPECIFIED Status: Chronic (4) Pneumonia Code(s): J18.9 - PNEUMONIA, UNSPECIFIED ORGANISM Status: Acute Qualifiers: Pneumonia type: due to unspecified organism Laterality: bilateral Lung location: lower lobe of lung Qualified Code(s): J18.9 - Pneumonia, unspecified organism (5) Physical deconditioning Code(s): R53.81 - OTHER MALAISE Status: Acute - Plan had flash pulm edema and pulm hemorrhage due to severe mitral regurg is weaning on vent for PRINCESS likely in am, will need cath as well, await cardiology adv continue nebs, levaquin, cefipime, steroids, protonix hemostable
[2019-10-14] MEDS ORDERED: Vecuronium 10 MG VIAL ONE (13:16)
[2019-10-14] MEDS ORDERED: Sterile Water 10 ML ONE (13:18)
--- NOTE | 2019-10-14 14:37 | PDOC.CPN ---
- Subjective Date: 10/14/19 Time: 14:36 Interval history: Improving daily. Now off pressor support. Remains sedated and intubated. - Review of Systems ROS unobtainable: due to endotracheal tube - Objective Allergies/Adverse Reactions: Allergies Allergy/AdvReac Type Severity Reaction Status Date / Time No Known Allergies Allergy Verified 09/21/19 05:58 Visit Medications: Current Medications Albuterol/Ipratropium (Duoneb) 3 ml NEB [id number] [facility] Last Admin: 10/14/19 13:31 Dose: 3 ml Dextrose/Water (Dextrose 50%) 25 gm SLOW IVP PRN PRN PRN Reason: Hypoglycemia Enoxaparin Sodium (Lovenox) 40 mg SC 2100 [facility] Last Admin: 10/13/19 20:23 Dose: 40 mg Glucagon (Glucagon) 1 mg IM PRN PRN PRN Reason: Hypoglycemia Sodium Chloride (Normal Saline 0.9%) 1,000 mls @ 100 mls/hr IV .Q10H [facility] Last Admin: 10/14/19 04:30 Dose: 1,000 mls Levofloxacin 750 mg/ Device 150 mls @ 100 mls/hr IVPB Q24HR [facility] Last Admin: 10/14/19 08:21 Dose: 150 mls Cefepime HCl 2 gm/ Sodium (Chloride) 100 mls @ 200 mls/hr IVPB 0400,1200,2000 [facility] Last Admin: 10/14/19 11:44 Dose: 100 mls Norepinephrine Bitartrate (Levophed) 250 mls @ 0 mls/hr IVPB INF [facility]; Protocol Last Admin: 10/12/19 20:28 Dose: 250 mls Fentanyl Citrate 2,000 mcg/ (Sodium Chloride) 100 mls @ 0 mls/hr IV INF [facility]; Protocol Last Admin: 10/14/19 10:37 Dose: 100 mls Fentanyl Citrate (Fentanyl Bolus) 250 mls @ 0 mls/hr IVPB PRN PRN PRN Reason: Breakthrough pain/agitation Dextrose/Water (D5w) 1,000 mls @ 0 mls/hr IV .Q0M PRN PRN Reason: Hypoglycemia Insulin Human Lispro (Humalog) 0 units SC .MILD SLIDING SCALE PRN PRN Reason: Mild Correctional Scale Last Admin: 10/14/19 11:53 Dose: 2 unit Lorazepam (Ativan) 2 mg SLOW IVP Q1H PRN PRN Reason: Breakthrough agitation Last Admin: 10/14/19 09:14 Dose: 2 mg Methylprednisolone Sodium Succinate (Solu-Medrol) 40 mg IVP Q6HR [facility] Last Admin: 10/14/19 11:44 Dose: 40 mg Morphine Sulfate (Morphine) 2 mg SLOW IVP Q1H PRN PRN Reason: BREAKTHROUGH PAIN/Agitation Last Admin: 10/14/19 09:29 Dose: 2 mg Pantoprazole Sodium (Protonix) 40 mg IVP 2100 [facility] Last Admin: 10/13/19 20:23 Dose: 40 mg Propofol (Diprivan) 1,000 mg IV INF PRN; Protocol PRN Reason: TO ACHIEVE GOAL RASS Last Admin: 10/14/19 04:31 Dose: 1,000 mg Propofol (Diprivan Bolus) 20 mg IV Q5MIN PRN PRN Reason: BREAKTHROUGH AGITATION Sodium Chloride (Flush - Normal Saline) 10 ml IVF PRN PRN PRN Reason: Saline Flush Sodium Chloride (Normal Saline Pf) 10 ml FS PRN PRN PRN Reason: RECONSTITUTION Vital Signs & Weight: Vital Signs Temp Pulse Resp Pulse Ox 10/14/19 14:00 16 10/14/19 13:31 97 20 100 10/14/19 12:00 97.6 F 17 10/14/19 10:52 117 H 10/14/19 10:00 27 H 10/14/19 08:00 98.6 F 22 H 10/14/19 07:28 95 10/14/19 07:21 105 H 22 H 96 10/14/19 06:36 97 10/14/19 06:00 98.0 F 16 10/14/19 04:00 16 Admit Weight 144 lb Weight 150 lb 2.157 oz - Physical Exam General: other (S/I) HEENT: mucus membranes moist Neck: supple neck Cardiac: systolic murmur Lungs: bibasilar rales Neuro: no lateralizing findings Abdomen: active bowel sounds Extremities: 1+ LE edema Skin: clear Musculoskeletal: no pain - Labs Result Diagrams: 10/14/19 03:30 10/14/19 03:30 Troponin/CKMB Troponin I Less than 0.010 ng/mL (< 0.028) 10/11/19 08:51 - Telemetry Sinus rhythms and dysrhythmias: sinus rhythm - Assessment/Plan Assessment/Plan: 1. Alveolar hemorrhage 2. Severe MR, acute likely. 3. Cardiogenic shock 4. Septic shock 5. Pneumonia PLAN: - Continue supportive care. - Now off pressor support. - PRINCESS planned for tomorrow morning. - Alveolar hemorrhage can be caused by acute severe MR. She had negative troponins and this would go against an ischemic event causing her severe MR. Concern for vegetation. PRINCESS tomorrow. - Critical Care Time Critical care time (mins): 30
[2019-10-14 17:08] LABS: Cytoplasmic (C-ANCA) <1:20 titer (Neg:<1:20); Perinuclear (P-ANCA) <1:20 titer (Neg:<1:20)
--- NOTE | 2019-10-14 20:42 | PRG ---
DATE OF SERVICE: 10/14/2019 SUBJECTIVE: Ms. Morley has not really clinically improved over the weekend. I talked to Dr. Yo and he feels her mitral valve is severely regurgitant, although image is suboptimal. He plans for a PRINCESS in the morning. OBJECTIVE: VITAL SIGNS: Remain stable. Her blood pressure 113/65, heart rate is 103, respiratory rate is 20. GENERAL: She is dyssynchronous with mechanical ventilation, so we switched her to a Versed drip, taken off propofol and we will intermittently paralyze her hopefully to a minimum number of times. LUNGS: Remarkable for coarse, equal breath sounds. HEART: Regular rhythm. ABDOMEN: Soft. EXTREMITIES: Without asymmetry. I had a long talk with her about her symptoms prior to her first admission. Apparently, she was having chest discomfort that was felt to be reflux related. She put up with this for quite some time before she gets short of breath and came to the hospital. Chest radiograph show diffuse alveolar infiltrates. White count is 8.1, hemoglobin 9.0, platelets 271,000. Sodium 140, potassium 4.3, chloride 115, bicarb 20, BUN 23, creatinine 0.62. IMPRESSION: Pulmonary hemorrhage associated with mitral regurgitation. Bronchial lavage from the 10th showed surprisingly no hemosiderin and she had significant alveolar hemorrhage seen on bronchoscopy. PLAN: We will continue with supportive care. The answered all of his questions. I have explained to him that she is not weanable at this time. PH today is 7.4, CO2 of 30, PO2 of 92. Job ID: [id number]
[2019-10-14] MEDS: Enoxaparin Sodium 40 MG/0.4 ML SYRINGE SC SCH (20:54)
[2019-10-14] MEDS: Pantoprazole 40 MG VIAL IVP SCH (20:55)
[2019-10-14] MEDS: Vecuronium 10 MG VIAL IVP PRN (21:24)
[2019-10-15] MEDS: Sodium Chloride 0.9% 1,000 ML IV SCH ×2 (01:44→12:35)
[2019-10-15] MEDS: Vecuronium 10 MG VIAL IVP PRN ×3 (02:26→21:31)
[2019-10-15] MEDS: Lorazepam 2 MG/ML VIAL SLOW IVP PRN (02:26)
[2019-10-15] MEDS: Cefepime 2 GM in Sodium Chloride 0.9% 100 ML IVPB SCH ×3 (03:58→20:55)
[2019-10-15] MEDS: methylPREDNISolone Sod Succ 40 MG VIAL IVP SCH ×4 (05:40→23:12)
[2019-10-15] MEDS: HumaLOG 300 UNITS/3 ML VIAL SC PRN ×2 (05:41→09:48)
[2019-10-15 06:49] LABS: Actual Bicarbonate (HCO3a) 18.3 mEq/L (22-28); Base Excess (BEa) -5.5 mEq/L (-2.0 to +3.0); Carboxyhemoglobin (COHb) 0.3 gm% (0.0-3.0); Hemoglobin (Hb) 10.1 g/dL (12.0-16.0); Potassium - ABG Lab 4.27 mmol/L (3.70-5.30)
[2019-10-15 06:50] LABS: Puncture Site LRA
--- NOTE | 2019-10-15 07:41 | RAD ---
EXAM: Single view of the chest HISTORY: Ventilated patient with respiratory failure COMPARISON: 10/14/2019 FINDINGS: Single view of the chest shows a normal sized cardiomediastinal silhouette. Lines and tube s are unchanged in position. There are stable multifocal infiltrates which are more prominent hilar regions. The bones are unremarkable. IMPRESSION: Stable exam
[2019-10-15] MEDS: fentaNYL Citrate/PF 2,000 MCG in Sodium Chloride 0.9% 60 ML IV SCH (10:08)
--- NOTE | 2019-10-15 15:07 | PDOC.HOSPP ---
- Subjective Encounter Date: 10/15/19 Encounter Time: 12:40 Subjective: awakens on sedation and vent at bedside - Objective Vital Signs & Weight: Vital Signs (12 hours) Temp Pulse Resp BP Pulse Ox 10/15/19 14:00 20 10/15/19 12:00 98.4 F 20 10/15/19 10:21 102 H 99/66 10/15/19 10:00 20 10/15/19 08:00 20 10/15/19 07:11 98 10/15/19 07:00 98 F 10/15/19 06:24 91 95/66 10/15/19 06:23 90 20 97 10/15/19 06:00 97.5 F L 20 10/15/19 04:00 20 Weight Admit Weight 144 lb Weight 151 lb 7.321 oz Most Recent Monitor Data Heart Rate from ECG 80 NIBP 92/69 NIBP BP-Mean 76 Respiration from ECG 20 SpO2 97 I&O: 10/14/19 10/15/19 10/16/19 06:59 06:59 06:59 Intake Total 3698 1475.4 0 Output Total 935 795 270 Balance 2763 680.4 -270 Result Diagrams: 10/14/19 03:30 10/14/19 03:30 Additional Labs: Accuchecks 10/15/19 10/15/19 10/14/19 09:45 05:01 22:18 POC Glucose 150 H 162 H 163 H 10/14/19 17:52 POC Glucose 151 H Hospitalist ROS - Medication Medications: Active Medications Generic Name Dose Route Start Last Admin Trade Name Freq PRN Reason Stop Dose Admin Albuterol/Ipratropium 3 ml 10/11/19 13:00 10/15/19 06:23 Duoneb NEB 3 ml [id number] KRISHNA Administration Enoxaparin Sodium 40 mg 10/12/19 21:00 10/14/19 20:54 Lovenox SC 40 mg 2100 KRISHNA Administration Sodium Chloride 1,000 mls @ 100 mls/hr 10/11/19 08:57 10/15/19 12:35 Normal Saline 0.9% IV 1,000 mls .Q10H KRISHNA Administration Levofloxacin 750 mg/ Device 150 mls @ 100 mls/hr 10/11/19 09:15 10/15/19 08: 41 IVPB 150 mls Q24HR KRISHNA Administration Cefepime HCl 2 gm/ Sodium 100 mls @ 200 mls/hr 10/12/19 04:00 10/15/19 11:38 Chloride IVPB 100 mls 0400,1200,2000 KRISHNA Administration Norepinephrine Bitartrate 250 mls @ 0 mls/hr 10/12/19 00:30 10/12/19 20:28 Levophed IVPB 250 mls INF KRISHNA Administration Protocol Titrate Fentanyl Citrate 2,000 mcg/ 100 mls @ 0 mls/hr 10/12/19 00:30 10/15/19 10:08 Sodium Chloride IV 100 mls INF KRISHNA Administration Protocol Per Protocol Midazolam HCl 100 mls @ 0 mls/hr 10/14/19 15:16 10/14/19 16:31 Versed IVPB 100 mls INF PRN Administration Sedation Protocol Titrate Insulin Human Lispro 0 units 10/12/19 12:32 10/15/19 09:48 Humalog SC 2 unit .MILD SLIDING SCALE PRN Administration Mild Correctional Scale Lorazepam 2 mg 10/12/19 00:28 10/15/19 02:26 Ativan SLOW IVP 2 mg Q1H PRN Administration Breakthrough agitation Methylprednisolone Sodium Succinate 40 mg 10/11/19 12:00 10/15/19 11:38 Solu-Medrol IVP 40 mg Q6HR KRISHNA Administration Morphine Sulfate 2 mg 10/12/19 00:28 10/14/19 09:29 Morphine SLOW IVP 2 mg Q1H PRN Administration BREAKTHROUGH PAIN/Agitation Pantoprazole Sodium 40 mg 10/12/19 21:00 10/14/19 20:55 Protonix IVP 40 mg 2100 KRISHNA Administration Propofol 1,000 mg 10/12/19 00:27 10/14/19 15:05 Diprivan IV 1,000 mg INF PRN Administration TO ACHIEVE GOAL RASS Protocol Vecuronium [place] 10 mg 10/14/19 15:16 10/15/19 08:03 Norcuron IVP 10 mg Q1H PRN Administration PARALYSIS - Exam General Appearance: ill appearing Eye: PERRL, anicteric sclera ENT: no oropharyngeal lesions, moist mucosa Neck: supple, no JVD Heart: RRR, no murmur Respiratory: no wheezes, no rales, rhonchi Gastrointestinal: soft, non-tender, non-distended, normal bowel sounds Extremities: no cyanosis, 1+ LE edema Neurological: cranial nerve grossly intact, no focal deficits Hosp A/P (1) Mitral insufficiency Status: Acute Qualifiers: Cardiac valve disease etiology: nonrheumatic Qualified Code(s): I34.0 - Nonrheumatic mitral (valve) insufficiency (2) Sepsis with acute hypoxic respiratory failure Code(s): A41.9 - SEPSIS, UNSPECIFIED ORGANISM; R65.20 - SEVERE SEPSIS WITHOUT SEPTIC SHOCK; J96.01 - ACUTE RESPIRATORY FAILURE WITH HYPOXIA Status: Acute Qualifiers: Sepsis type: sepsis due to unspecified organism Severe sepsis shock status : without septic shock Qualified Code(s): A41.9 - Sepsis, unspecified organism ; R65.20 - Severe sepsis without septic shock; J96.01 - Acute respiratory failure with hypoxia (3) Dyslipidemia Code(s): E78.5 - HYPERLIPIDEMIA, UNSPECIFIED Status: Chronic (4) Pneumonia Code(s): J18.9 - PNEUMONIA, UNSPECIFIED ORGANISM Status: Acute Qualifiers: Pneumonia type: due to unspecified organism Laterality: bilateral Lung location: lower lobe of lung Qualified Code(s): J18.9 - Pneumonia, unspecified organism (5) Physical deconditioning Code(s): R53.81 - OTHER MALAISE Status: Acute - Plan had flash pulm edema and pulm hemorrhage due to severe mitral regurg is weaning on vent for PRINCESS likely today by to confirm severe MR and to r/o veg, will need cath as well if she needs repair, await cardiology adv continue nebs, levaquin, cefipime, steroids, protonix hemostable D/w at bedside
--- NOTE | 2019-10-15 18:27 | PDOC.CPN ---
- Subjective Date: 10/15/19 Time: 18:27 Interval history: She remains intubated sedated. She had her PRINCESS today and it shows severe MR with flail leaflet and sever prolapse into left atria. - Review of Systems ROS unobtainable: due to endotracheal tube - Objective Allergies/Adverse Reactions: Allergies Allergy/AdvReac Type Severity Reaction Status Date / Time No Known Allergies Allergy Verified 09/21/19 05:58 Visit Medications: Current Medications Albuterol/Ipratropium (Duoneb) 3 ml NEB [id number] KRISHNA Last Admin: 10/15/19 18:19 Dose: 3 ml Dextrose/Water (Dextrose 50%) 25 gm SLOW IVP PRN PRN PRN Reason: Hypoglycemia Enoxaparin Sodium (Lovenox) 40 mg SC 2100 [facility] Last Admin: 10/14/19 20:54 Dose: 40 mg Glucagon (Glucagon) 1 mg IM PRN PRN PRN Reason: Hypoglycemia Sodium Chloride (Normal Saline 0.9%) 1,000 mls @ 100 mls/hr IV .Q10H KRISHNA Last Admin: 10/15/19 12:35 Dose: 1,000 mls Levofloxacin 750 mg/ Device 150 mls @ 100 mls/hr IVPB Q24HR KRISHNA Last Admin: 10/15/19 08:41 Dose: 150 mls Cefepime HCl 2 gm/ Sodium (Chloride) 100 mls @ 200 mls/hr IVPB 0400,1200,2000 KRISHNA Last Admin: 10/15/19 11:38 Dose: 100 mls Norepinephrine Bitartrate (Levophed) 250 mls @ 0 mls/hr IVPB INF KRISHNA; Protocol Last Admin: 10/12/19 20:28 Dose: 250 mls Fentanyl Citrate 2,000 mcg/ (Sodium Chloride) 100 mls @ 0 mls/hr IV INF KRISHNA; Protocol Last Admin: 10/15/19 10:08 Dose: 100 mls Fentanyl Citrate (Fentanyl Bolus) 250 mls @ 0 mls/hr IVPB PRN PRN PRN Reason: Breakthrough pain/agitation Dextrose/Water (D5w) 1,000 mls @ 0 mls/hr IV .Q0M PRN PRN Reason: Hypoglycemia Midazolam HCl (Versed) 100 mls @ 0 mls/hr IVPB INF PRN; Protocol PRN Reason: Sedation Last Admin: 10/14/19 16:31 Dose: 100 mls Insulin Human Lispro (Humalog) 0 units SC .MILD SLIDING SCALE PRN PRN Reason: Mild Correctional Scale Last Admin: 10/15/19 09:48 Dose: 2 unit Lorazepam (Ativan) 2 mg SLOW IVP Q1H PRN PRN Reason: Breakthrough agitation Last Admin: 10/15/19 02:26 Dose: 2 mg Methylprednisolone Sodium Succinate (Solu-Medrol) 40 mg IVP Q6HR KRISHNA Last Admin: 10/15/19 17:33 Dose: 40 mg Morphine Sulfate (Morphine) 2 mg SLOW IVP Q1H PRN PRN Reason: BREAKTHROUGH PAIN/Agitation Last Admin: 10/14/19 09:29 Dose: 2 mg Pantoprazole Sodium (Protonix) 40 mg IVP 2100 KRISHNA Last Admin: 10/14/19 20:55 Dose: 40 mg Propofol (Diprivan) 1,000 mg IV INF PRN; Protocol PRN Reason: TO ACHIEVE GOAL RASS Last Admin: 10/14/19 15:05 Dose: 1,000 mg Propofol (Diprivan Bolus) 20 mg IV Q5MIN PRN PRN Reason: BREAKTHROUGH AGITATION Sodium Chloride (Flush - Normal Saline) 10 ml IVF PRN PRN PRN Reason: Saline Flush Sodium Chloride (Normal Saline Pf) 10 ml FS PRN PRN PRN Reason: RECONSTITUTION Vecuronium [place] (Norcuron) 10 mg IVP Q1H PRN PRN Reason: PARALYSIS Last Admin: 10/15/19 08:03 Dose: 10 mg Vital Signs & Weight: Vital Signs Temp Pulse Resp BP Pulse Ox 10/15/19 18:19 88 20 93 L 10/15/19 18:00 20 10/15/19 16:00 98.2 F 10/15/19 15:39 83 90/69 10/15/19 15:38 81 20 91 L 10/15/19 14:00 20 10/15/19 12:00 98.4 F 10/15/19 10:21 102 H 99/66 10/15/19 10:00 20 10/15/19 08:00 20 10/15/19 07:11 98 10/15/19 07:00 98 F Admit Weight 144 lb Weight 151 lb 7.321 oz - Physical Exam General: other (S/I) HEENT: mucus membranes moist Neck: supple neck Cardiac: regular rate and rhythm Lungs: bibasilar rales Neuro: no lateralizing findings Abdomen: active bowel sounds Extremities: 1+ LE edema Skin: clear Musculoskeletal: normal range of motion - Labs Result Diagrams: 10/14/19 03:30 10/14/19 03:30 Troponin/CKMB Troponin I Less than 0.010 ng/mL (< 0.028) 10/11/19 08:51 - Telemetry Sinus rhythms and dysrhythmias: sinus rhythm - Assessment/Plan Assessment/Plan: 1. Alveolar hemorrhage 2. Severe MR, acute likely. 3. Cardiogenic shock 4. Septic shock 5. Pneumonia PLAN: - Continue supportive care. - Long conversation with family about how to proceed. Currently she is not weanable from the vent. Likely her severe MR is acute and the cause of her alveolar hemorrhage and subsequent decompensation. Will need valve surgery for improvement of hemodynamics. - Decided for transfer to [place] for mitral valve surgery. Will start transfer to [facility]. - Critical Care Time Critical care time (mins): 45
[2019-10-15] MEDS: Pantoprazole 40 MG VIAL IVP SCH (20:56)
[2019-10-15] MEDS: Enoxaparin Sodium 40 MG/0.4 ML SYRINGE SC SCH (20:56)
[2019-10-15 22:12] LABS: Actual Bicarbonate (HCO3a) 19.2 mEq/L (22-28); Base Excess (BEa) -4.1 mEq/L (-2.0 to +3.0); Carboxyhemoglobin (COHb) 0.8 gm% (0.0-3.0); Hemoglobin (Hb) 9.7 g/dL (12.0-16.0); O2 Tension (PaO2) 67.2 mmHg (> 80.0); Potassium - ABG Lab 4.18 mmol/L (3.70-5.30); pH, Arterial 7.44 (7.35-7.45)
[2019-10-15] MEDS ORDERED: Furosemide 40 MG/4 ML VIAL SLOW IVP SCH (22:30)
[2019-10-15 23:27] LABS: Puncture Site LRA
--- NOTE | 2019-10-16 00:01 | PRG ---
DATE OF SERVICE: 10/15/2019 Sindi Morley is in no distress. Transesophageal echocardiogram today showed that she has severe mitral regurgitation. Arrangements are being made to transfer her to a oil and gas well treatment operator who does one of multiple many mitral valve procedures that are available in [place]. I am told that everything hinders around whether or not insurance is accepted at [facility] in [facility]. Overall, she remains sedated. She has done better on the Versed drip. Lungs, heart, and abdomen are unchanged. Chest radiograph shows diffuse alveolar infiltrates. I suspect her infiltrates are more related to alveolar hemorrhage with her mitral regurgitation, so they will be slow to resolve. Following, a radiograph may not be very reliable from the standpoint of determining her volume status. Her intake and output today was positive 680. She has 2700 up yesterday, 1500 up the day before and 1500 up the day before that, so we need to try to keep her in at least an even fluid balance. Her blood pressure is running 90 to 100 systolic today. I really do feel that she is not going to improve until we do something with her mitral valve. We are waiting for a call back from [place]. The oil and gas well treatment operator has made a referral. Critical care time 30 minutes. Job ID: [id number]
[2019-10-16] MEDS: methylPREDNISolone Sod Succ 40 MG VIAL IVP SCH ×4 (01:36→20:45)
[2019-10-16] MEDS: Cefepime 2 GM in Sodium Chloride 0.9% 100 ML IVPB SCH ×3 (04:39→20:43)
[2019-10-16] MEDS: HumaLOG 300 UNITS/3 ML VIAL SC PRN ×3 (05:28→21:57)
[2019-10-16] MEDS: fentaNYL Citrate/PF 2,000 MCG in Sodium Chloride 0.9% 60 ML IV SCH (07:08)
[2019-10-16 07:16] LABS: Actual Bicarbonate (HCO3a) 18.3 mEq/L (22-28); Base Excess (BEa) -5.1 mEq/L (-2.0 to +3.0); CO2 Tension 28.2 mmHg (35.0-45.0); Calcium, Ionized 1.19 mmol/L (1.12-1.30); Carboxyhemoglobin (COHb) 0.9 gm% (0.0-3.0); Hemoglobin (Hb) 10.2 g/dL (12.0-16.0); Potassium - ABG Lab 4.24 mmol/L (3.70-5.30); pH, Arterial 7.43 (7.35-7.45)
[2019-10-16 07:20] LABS: O2 Tension (PaO2) 58.9 mmHg (> 80.0); Puncture Site LRA
--- NOTE | 2019-10-16 12:59 | PDOC.HOSPP ---
- Subjective Encounter Date: 10/16/19 Encounter Time: 10:30 Subjective: pt is on ventilator, and other family present bedside, Patient seen and examined. No overnight events - Objective Vital Signs & Weight: Vital Signs (12 hours) Temp Pulse Resp BP Pulse Ox 10/16/19 11:52 97 84/69 L 10/16/19 10:00 20 10/16/19 08:00 98.7 F 20 95 10/16/19 06:34 87 108/77 10/16/19 06:25 87 20 95 10/16/19 05:50 20 10/16/19 04:00 98.2 F 20 10/16/19 02:00 20 Weight Admit Weight 144 lb Weight 152 lb 1.903 oz Most Recent Monitor Data Heart Rate from ECG 88 NIBP 84/59 NIBP BP-Mean 67 Respiration from ECG 18 SpO2 100 I&O: 10/15/19 10/16/19 10/17/19 06:59 06:59 06:59 Intake Total 1475.4 1735 Output Total 795 1260 133 Balance 680.4 475 -133 Result Diagrams: 10/14/19 03:30 10/14/19 03:30 Additional Labs: Accuchecks 10/16/19 10/16/19 10/15/19 11:08 05:31 23:23 POC Glucose 168 H 159 H 142 H 10/15/19 15:52 POC Glucose 121 H Radiology Reviewed by me: Yes EKG Reviewed by me: Yes Hospitalist ROS - Review of Systems ROS unobtainable: due to endotracheal tube - Medication Medications: Active Medications Generic Name Dose Route Start Last Admin Trade Name Freq PRN Reason Stop Dose Admin Albuterol/Ipratropium 3 ml 10/11/19 13:00 10/16/19 06:25 Duoneb NEB 3 ml [id number] KRISHNA Administration Enoxaparin Sodium 40 mg 10/12/19 21:00 10/15/19 20:56 Lovenox SC 40 mg 2100 KRISHNA Administration Levofloxacin 750 mg/ Device 150 mls @ 100 mls/hr 10/11/19 09:15 10/16/19 08: 40 IVPB 150 mls Q24HR KRISHNA Administration Cefepime HCl 2 gm/ Sodium 100 mls @ 200 mls/hr 10/12/19 04:00 10/16/19 12:12 Chloride IVPB 100 mls 0400,1200,2000 KRISHNA Administration Norepinephrine Bitartrate 250 mls @ 0 mls/hr 10/12/19 00:30 10/12/19 20:28 Levophed IVPB 250 mls INF KRISHNA Administration Protocol Titrate Fentanyl Citrate 2,000 mcg/ 100 mls @ 0 mls/hr 10/12/19 00:30 10/16/19 07:08 Sodium Chloride IV 100 mls INF KRISHNA Administration Protocol Per Protocol Midazolam HCl 100 mls @ 0 mls/hr 10/14/19 15:16 10/16/19 12:24 Versed IVPB 100 mls INF PRN Administration Sedation Protocol Titrate Insulin Human Lispro 0 units 10/12/19 12:32 10/16/19 11:10 Humalog SC 2 unit .MILD SLIDING SCALE PRN Administration Mild Correctional Scale Lorazepam 2 mg 10/12/19 00:28 10/15/19 02:26 Ativan SLOW IVP 2 mg Q1H PRN Administration Breakthrough agitation Methylprednisolone Sodium Succinate 20 mg 10/15/19 23:59 10/16/19 12:12 Solu-Medrol IVP 20 mg Q6HR KRISHNA Administration Morphine Sulfate 2 mg 10/12/19 00:28 10/14/19 09:29 Morphine SLOW IVP 2 mg Q1H PRN Administration BREAKTHROUGH PAIN/Agitation Pantoprazole Sodium 40 mg 10/12/19 21:00 10/15/19 20:56 Protonix IVP 40 mg 2100 KRISHNA Administration Propofol 1,000 mg 10/12/19 00:27 10/14/19 15:05 Diprivan IV 1,000 mg INF PRN Administration TO ACHIEVE GOAL RASS Protocol Vecuronium [place] 10 mg 10/14/19 15:16 10/15/19 21:31 Norcuron IVP 10 mg Q1H PRN Administration PARALYSIS - Exam General Appearance: NAD General - other findings: on ventilator Eye: PERRL, anicteric sclera ENT: normocephalic atraumatic Neck: supple, symmetric Heart: RRR, no gallops, murmur present, III/IV Heart - other findings: apex Respiratory - other findings: coarse sound, basal rales Gastrointestinal: soft, non-distended, normal bowel sounds Extremities: no cyanosis, no clubbing Hosp A/P (1) Dyslipidemia Code(s): E78.5 - HYPERLIPIDEMIA, UNSPECIFIED Status: Chronic (2) Acute respiratory failure with hypoxemia Code(s): J96.01 - ACUTE RESPIRATORY FAILURE WITH HYPOXIA Status: Resolved (3) Acute on chronic diastolic ACC/AHA stage C congestive heart failure Code(s): I50.33 - ACUTE ON CHRONIC DIASTOLIC (CONGESTIVE) HEART FAILURE Status : Acute (4) Severe mitral regurgitation Code(s): I34.0 - NONRHEUMATIC MITRAL (VALVE) INSUFFICIENCY Status: Acute (5) Anemia, macrocytic Code(s): D53.9 - NUTRITIONAL ANEMIA, UNSPECIFIED Status: Chronic (6) Anxiety and depression Code(s): F41.9 - ANXIETY DISORDER, UNSPECIFIED; F32.9 - MAJOR DEPRESSIVE DISORDER, SINGLE EPISODE, UNSPECIFIED Status: Chronic (7) Leucocytosis Code(s): D72.829 - ELEVATED WHITE BLOOD CELL COUNT, UNSPECIFIED Status: Resolved (8) Pneumonia Code(s): J18.9 - PNEUMONIA, UNSPECIFIED ORGANISM Status: Acute Qualifiers: Pneumonia type: due to unspecified organism Laterality: bilateral Lung location: lower lobe of lung Qualified Code(s): J18.9 - Pneumonia, unspecified organism - Plan old records reviewed/req, plan discussed w/ family 10/16/19 currently on cefepime and levaquin continue solumderol ventilatory support as per pulmonary as per report, plan to transfer to [facility] for mitral valve surgery, so will initiate that process with help of transfer center, in agree with that medication reviewed and continue to provide symptomatic care and supportive care
[2019-10-16 13:43] VITALS: BMI 28.7
--- NOTE | 2019-10-16 17:11 | PDOC.CPN ---
- Subjective Date: 10/16/19 Time: 17:08 Interval history: Remains intubated but off sedation. following commands. - Review of Systems ROS unobtainable: due to endotracheal tube - Objective Allergies/Adverse Reactions: Allergies Allergy/AdvReac Type Severity Reaction Status Date / Time No Known Allergies Allergy Verified 09/21/19 05:58 Visit Medications: Current Medications Albuterol/Ipratropium (Duoneb) 3 ml NEB [id number] KRISHNA Last Admin: 10/16/19 15:03 Dose: 3 ml Dextrose/Water (Dextrose 50%) 25 gm SLOW IVP PRN PRN PRN Reason: Hypoglycemia Enoxaparin Sodium (Lovenox) 40 mg SC 2100 KRISHNA Last Admin: 10/15/19 20:56 Dose: 40 mg Glucagon (Glucagon) 1 mg IM PRN PRN PRN Reason: Hypoglycemia Cefepime HCl 2 gm/ Sodium (Chloride) 100 mls @ 200 mls/hr IVPB 0400,1200,2000 KRISHNA Last Admin: 10/16/19 12:12 Dose: 100 mls Norepinephrine Bitartrate (Levophed) 250 mls @ 0 mls/hr IVPB INF KRISHNA; Protocol Last Admin: 10/12/19 20:28 Dose: 250 mls Fentanyl Citrate 2,000 mcg/ (Sodium Chloride) 100 mls @ 0 mls/hr IV INF KRISHNA; Protocol Last Admin: 10/16/19 07:08 Dose: 100 mls Fentanyl Citrate (Fentanyl Bolus) 250 mls @ 0 mls/hr IVPB PRN PRN PRN Reason: Breakthrough pain/agitation Dextrose/Water (D5w) 1,000 mls @ 0 mls/hr IV .Q0M PRN PRN Reason: Hypoglycemia Midazolam HCl (Versed) 100 mls @ 0 mls/hr IVPB INF PRN; Protocol PRN Reason: Sedation Last Admin: 10/16/19 12:24 Dose: 100 mls Insulin Human Lispro (Humalog) 0 units SC .MILD SLIDING SCALE PRN PRN Reason: Mild Correctional Scale Last Admin: 10/16/19 11:10 Dose: 2 unit Lorazepam (Ativan) 2 mg SLOW IVP Q1H PRN PRN Reason: Breakthrough agitation Last Admin: 10/15/19 02:26 Dose: 2 mg Methylprednisolone Sodium Succinate (Solu-Medrol) 20 mg IVP Q12HR [facility] Morphine Sulfate (Morphine) 2 mg SLOW IVP Q1H PRN PRN Reason: BREAKTHROUGH PAIN/Agitation Last Admin: 10/14/19 09:29 Dose: 2 mg Pantoprazole Sodium (Protonix) 40 mg IVP 2100 KRISHNA Last Admin: 10/15/19 20:56 Dose: 40 mg Sodium Chloride (Flush - Normal Saline) 10 ml IVF PRN PRN PRN Reason: Saline Flush Sodium Chloride (Normal Saline Pf) 10 ml FS PRN PRN PRN Reason: RECONSTITUTION Vecuronium [place] (Norcuron) 10 mg IVP Q1H PRN PRN Reason: PARALYSIS Last Admin: 10/15/19 21:31 Dose: 10 mg Vital Signs & Weight: Vital Signs Temp Pulse Resp BP Pulse Ox 10/16/19 16:00 98.6 F 20 10/16/19 15:04 95 99/76 10/16/19 15:03 95 20 95 10/16/19 14:00 20 10/16/19 12:00 98.8 F 20 10/16/19 11:52 97 84/69 L 10/16/19 10:00 20 10/16/19 08:00 98.7 F 20 95 10/16/19 06:34 87 108/77 10/16/19 06:25 87 20 95 10/16/19 05:50 20 Admit Weight 144 lb Weight 152 lb 1.903 oz - Physical Exam General: other (Intubated.) HEENT: normocephaly Neck: supple neck Cardiac: regular rate and rhythm, systolic murmur Lungs: bibasilar rales Neuro: no lateralizing findings Abdomen: active bowel sounds Extremities: 1+ LE edema Skin: clear Musculoskeletal: no pain - Labs Result Diagrams: 10/14/19 03:30 10/14/19 03:30 Troponin/CKMB Troponin I Less than 0.010 ng/mL (< 0.028) 10/11/19 08:51 - Telemetry Sinus rhythms and dysrhythmias: sinus rhythm - Assessment/Plan Assessment/Plan: 1. Alveolar hemorrhage 2. Severe MR, acute likely. 3. Cardiogenic shock 4. Sepsis 5. Pneumonia PLAN: - Continue supportive care. - Not weanable from vent. - Acute MR needs repair. Transfer to [facility] in process. - Critical Care Time Critical care time (mins): 30
--- NOTE | 2019-10-16 17:27 | PRG ---
DATE OF SERVICE: 10/16/2019 SUBJECTIVE: Ms. Morley is stable. She is intermittently having problems improve desaturation, which I suspect is secondary to intermittent worsening of her mitral regurgitation. OBJECTIVE: VITAL SIGNS: She is afebrile. Heart rate is 108, blood pressure is 112/76. LUNGS: Remarkable for coarse equal breath sounds. HEART: Regular rhythm. ABDOMEN: Soft. LABORATORY DATA: No new lab today. It is unclear whether or not, she is going to be transferred, so I will order lab for tomorrow. IMPRESSION: Pulmonary hemorrhages associated with severe mitral regurgitation that is relatively acute. PLAN: I suspect her chest radiograph will clear slowly because the amount of blood that she has. I do not feel she will clinically improve until something is done about her mitral valve. People are working on transfer to a center with capabilities for mitral clipping versus mitral replacement versus mitral repair. Job ID: [id number]
[2019-10-16] MEDS: Enoxaparin Sodium 40 MG/0.4 ML SYRINGE SC SCH (20:44)
[2019-10-16] MEDS: Pantoprazole 40 MG VIAL IVP SCH (20:45)
[2019-10-17] MEDS: fentaNYL Citrate/PF 2,000 MCG in Sodium Chloride 0.9% 60 ML IV SCH (01:29)
[2019-10-17] MEDS: HumaLOG 300 UNITS/3 ML VIAL SC PRN (04:18)
[2019-10-17] MEDS: Cefepime 2 GM in Sodium Chloride 0.9% 100 ML IVPB SCH ×2 (04:21→12:43)
[2019-10-17 05:00] LABS: Anion Gap 10 mmol/L (10-20); BUN (Urea Nitrogen) 29 mg/dL (9.8-20.1); Calc. Creatinine Clearance 110 mL/min (70-130); Calcium 8.2 mg/dL (7.8-10.44); Carbon Dioxide 19 mmol/L (23-31); Chloride 114 mmol/L (98-107); Estimated GFR-MDRD Greater than 90; Glucose 145 mg/dL (80-115); Hemoglobin 9.9 g/dL (12.0-16.0); Lymphocytes 24 % (21-51); MDiff Complete? YES; Mean Corpuscular HGB CONC 32.3 g/dL (32.0-36.0); Mean Corpuscular Hemoglobin 31.6 pg (27.0-31.0); Mean Platelet Volume 7.8 fL (7.4-10.4); Metamyelocyte 2 % (0-0); Monocytes 10 % (0-10); Myelocyte 2 % (0-0); Neutrophil 62 % (42-75); Nucleated RBC 2 % (0); Platelet Count 314 thou/uL (130-400); Platelet Morphology Comment Appears Adequate; Potassium 4.4 mmol/L (3.5-5.1); RBC Distribution Width 13.5 % (11.5-14.5); Red Blood Cell (RBC) Count 3.14 mill/uL (4.20-5.40); Sodium 139 mmol/L (136-145); White Blood Cell (WBC) Count 9.1 thou/uL (4.8-10.8)
--- NOTE | 2019-10-17 08:10 | RAD ---
XR Chest 1 View Portable HISTORY: Respiratory failure COMPARISON: Previous day FINDINGS: No significant interval change is seen since the previous day's exam.
[2019-10-17] MEDS: methylPREDNISolone Sod Succ 40 MG VIAL IVP SCH (08:28)
[2019-10-17 11:45] VITALS: BP 101/77
--- NOTE | 2019-10-17 13:14 | PRG ---
DATE OF SERVICE: 10/17/2019 SUBJECTIVE: Sindi Morley is in no distress. OBJECTIVE: VITAL SIGNS: Heart rate in the 90s, blood pressure 101/77, respiratory rates per mechanical ventilation. Her FiO2 is . LUNGS: Unchanged. HEART: Unchanged. ABDOMEN: Unchanged. LABORATORY DATA: White count 9.1, hemoglobin 9.9, and platelets 314. Electrolytes are unremarkable. She is hyperchloremic. IMPRESSION: Severe mitral regurgitation with pulmonary edema, pulmonary hemorrhage, and respiratory failure. We are still awaiting bed availability. If we are unable to transfer to [place], we should consider transferring her to [place]. She is stable for transfer. Blood gas today shows pH 7.43, CO2 of 28, pO2 of 58. FiO2 is at 40, tidal volume 450, pressure support 10, and PEEP set at 10. Job ID: [id number]
[2019-10-17 13:20] VITALS: TEMP 97.9
--- NOTE | 2019-10-17 15:23 | DIS ---
DATE OF ADMISSION: 10/11/2019 DATE OF DISCHARGE: 10/17/2019 PRIMARY CARE PHYSICIAN: Dr. Stefan Arreaga. DISCHARGE DISPOSITION: [facility]. PRIMARY DISCHARGE DIAGNOSES: Acute respiratory failure, acute on chronic diastolic heart failure, severe mitral regurgitation, pneumonia, suspected sepsis. SECONDARY DISCHARGE DIAGNOSES: Anxiety and depression, dyslipidemia, macrocytic anemia, chronic diastolic heart failure. PRIMARY PROCEDURE/OPERATION: Endotracheal intubation, mechanical ventilatory support. RADIOLOGICAL INVESTIGATION: Several chest x-rays, echocardiography showed severe mitral regurgitation. SIGNIFICANT LABORATORY DATA: WBC 9.1, hemoglobin 9.9, platelets 314. ABG; pH 7.43, CO2 of 28.2, O2 of 58.9, bicarb 18.3. Sodium 139, potassium 4.4, BUN 29, creatinine 0.58, calcium 8.2. Blood culture, negative. DISCHARGE MEDICATIONS: The patient is transferred to [facility] for higher level of care. The patient was on following medications before admission; 1. Aspirin 81 mg daily. 2. Crestor 10 mg daily. 3. Klonopin 0.5 mg p.o. at bedtime. 4. Gabapentin 300 mg t.i.d. 5. Prednisone 10 mg every other day. 6. Florastor 250 mg daily. 7. Melatonin 3 mg p.o. at bedtime p.r.n. CONTRAINDICATION: None. CODE STATUS: Full code. INPATIENT CONFIDENTIAL INVESTIGATOR: Dr. Yo was following while in hospital. Pulmonary Group was managing ventilator. TEST RESULTS PENDING ON DISCHARGE: None. ALLERGIES: NO KNOWN DRUG ALLERGIES. DISCHARGE PLAN: The patient is discharged to [facility] for higher level of care for repair of mitral valve. HOSPITAL COURSE: A 64-year-old female, who was recently admitted in the hospital for acute respiratory failure. At that time, the patient was treated for acute on chronic diastolic congestive heart failure exacerbation. After discharge, the patient came back again in the hospital and the patient was found with severe mitral regurgitation. The patient was not weanable. The patient was intubated entire hospital course, as the patient has severe mitral regurgitation and that is why Cardiology and Pulmonary [facility] decided to transfer her to [facility] for higher level of care. The patient was intubated and stable for transfer as per Pulmonary and the patient was having bed available at [facility], and today, the patient is discharged. The patient was seen and examined at bedside today. Plan of care discussed with the patient and family member and they have all agreed with transfer to [facility]. PHYSICAL EXAMINATION: VITAL SIGNS: On the day of discharge, the patient's blood pressure is 117/86, pulse 96, respiratory rate 20, saturation 93% on ventilator. Weight 152 pounds. GENERAL: The patient was intubated, but awake. HEENT: Head, normocephalic and atraumatic. NECK: Supple. No JVD. No meningeal signs of irritation. LUNGS: Bilateral coarse breath sound noted. CARDIAC: S1 and S2, regular. Systolic murmur noted at mitral valve. ABDOMEN: Soft and benign. EXTREMITIES: Trace edema noted. NEUROLOGIC: Unable to examine due to intubated status. Paperwork for discharge done, discharge medication reconciliation done, and the patient was discharged to [facility] for higher level of care. Job ID: [id number]
--- NOTE | 2019-10-19 11:17 | EKG ---
Test Reason : Blood Pressure : / mmHG Vent. Rate : 175 BPM Atrial Rate : 175 BPM P-R Int : 124 ms QRS Dur : 084 ms QT Int : 276 ms P-R-T Axes : 000 036 -79 degrees QTc Int : 471 ms Sinus tachycardia with Fusion complexes Cannot rule out Anterior infarct , age undetermined Abnormal ECG Confirmed by MIRYAM MONTANO M.D. ([id number]), mapping editor JL BLANCO ([id number]) on 10/19/2019 11:17:12 AM Referred By: Confirmed By:MIRYAM MONTANO M.D.
== END 2019-10-17 14:35 | disposition short-term general hospital (02) | DRG 870 ==
LOC: ERS 02:53 → CCU 03:49
PROVIDERS: ADMIT Hospitalist; ATTEND Hospitalist
PROC: 5A1955Z Respiratory Ventilation, Greater than 96 Consecutive Hours (ICD-10-PCS; principal; 2019-10-11)
PROC: 0B9K8ZX Drainage of Right Lung, Via Natural or Artificial Opening Endoscopic, Diagnostic (ICD-10-PCS; 2019-10-11)
PROC: 3E033XZ Introduction of Vasopressor into Peripheral Vein, Percutaneous Approach (ICD-10-PCS; 2019-10-11)
PROC: 02HV33Z Insertion of Infusion Device into Superior Vena Cava, Percutaneous Approach (ICD-10-PCS; 2019-10-11)
PROC: 0BH17EZ Insertion of Endotracheal Airway into Trachea, Via Natural or Artificial Opening (ICD-10-PCS; 2019-10-11)
DX: A41.9 Sepsis, unspecified organism (principal); J18.9 Pneumonia, unspecified organism; J96.01 Acute respiratory failure with hypoxia; R65.21 Severe sepsis with septic shock; R57.0 Cardiogenic shock; I50.33 Acute on chronic diastolic (congestive) heart failure; R04.89 Hemorrhage from other sites in respiratory passages; G47.30 Sleep apnea, unspecified; I34.0 Nonrheumatic mitral (valve) insufficiency; F41.9 Anxiety disorder, unspecified; T38.0X5A Adverse effect of glucocorticoids and synthetic analogues, initial encounter; R73.9 Hyperglycemia, unspecified; I11.0 Hypertensive heart disease with heart failure; F32.9 Major depressive disorder, single episode, unspecified; E87.8 Other disorders of electrolyte and fluid balance, not elsewhere classified; E78.5 Hyperlipidemia, unspecified; Z90.49 Acquired absence of other specified parts of digestive tract; Z79.899 Other long term (current) drug therapy; Z79.82 Long term (current) use of aspirin; Z79.51 Long term (current) use of inhaled steroids
CPT/HCPCS: 31500; 36416; 36556; 51702; 71045; 80048; 81003; 81015; 82550; 82805; 83605; 83880; 84484; 85007; 85025; 85027; 85652; 86038; 86225; 86256; 87040; 87070; 87102; 87116; 87205; 87206; 88112; 88305; 88313; 93005; 93306; 93312; 94002; 94003; 94640; 96365; 96366; 96368; 96375; C9113; J0171; J0692; J1650; J1940; J1956; J2060; J2270; J2405; J2704; J2920; J3010; J3370; J3475; J3490; J7620